=== PATIENT | female | born 1980 | race Caucasian/White ===

== ENCOUNTER 2019-06-27 07:32 | Emergency (ER) | payer BC, OTHER ==
[2019-06-27] MEDS ORDERED: ONDANSETRON 4 MG/2 ML VIAL ONE (07:59)
[2019-06-27] MEDS ORDERED: MORPHINE 2 MG/ML SYR ONE ×2 (07:59→08:24)
[2019-06-27 08:14] LABS: Absolute Lymphocytes (CBC) 0.8 K/uL (0.7-4.9); Basophils % 0.9 % (0-1.3); Hematocrit 41.7 % (36.0-45.0); Lymphocytes % 12.1 % (15.3-44.8); MPV 7.3 fL (7.6-11.3); RBC Red Blood Cell Count 4.58 M/uL (3.86-4.86)
[2019-06-27 08:34] LABS: Bilirubin Total 0.5 mg/dL (0.2-1.0); Potassium 3.5 mmol/L (3.5-5.1); Protein, Total 7.1 g/dL (6.4-8.2)
[2019-06-27] MEDS ORDERED: BUPIVACAINE 0.5% PF 10 ML VIAL ONE (08:52)
--- NOTE | 2019-06-27 09:16 | RAD REPORT ---
EXAM DESCRIPTION: CT - Soft Tissue Neck W/Contr - 06/27/2019 8:53 am CLINICAL HISTORY: Right jaw pain and swelling COMPARISON: None. TECHNIQUE: Computed axial tomography of the neck was obtained. 50 cc Isovue 300 was administered in travenously. Coronal and sagittal reconstruction was performed. All CT scans are performed using dose optimization technique as appropriate and may include automated exposure control or mA/KV adjustment according to patient size. FINDINGS: Lucency surrounds a right mandibular tooth. There is surrounding edema. Edema extends thro ughout the right cheek. A fluid-filled abscess is not visualized within the soft tissues. The pharynx, tongue base, larynx and subglottic trachea appear unremarkable The parotid, submandibular appear unremarkable. Sub centimeter left thyroid nodule likely benign No lymphadenopathy is seen The sinuses and mastoids are clear. IMPRESSION: Lucency with surrounding a right mandibular tooth consistent with abscess Surrounding cellulitis is present.
[2019-06-27] MEDS ORDERED: CLINDAMYCIN 900MG/D5W 900 MG/50 ML IVPB IV ONE (09:43)
[2019-06-27] MEDS ORDERED: METRONIDAZOLE 500mg IVPB 500 MG/100 ML BAG IV ONE (09:43)
--- NOTE | 2019-06-27 09:57 | ER ---
Nurse's Notes [facility] Name: Claudine Herron Age: 39 yrs Sex: Female : 1980 Arrival Date: 06/27/2019 Time: 07:41 Bed 5 Private MD: Diagnosis: Periapical abscess without sinus Presentation: 06/27 07:43 Presenting complaint: Patient states: "I had a tooth abscess around May 18 and a aa5 dentist in [place] gave me clindamycin twice but the swelling started back again on Tuesday". Pt c/o swelling to right jaw/cheek. 07:43 Acuity: BENJA 3 aa5 07:48 Risk Assessment: Do you want to hurt yourself or someone else? Patient reports no tw2 desire to harm self or others. Care prior to arrival: None. 07:48 Transition of care: patient was not received from another setting of care. Onset of aa5 symptoms was June 2019. 07:48 Method Of Arrival: Ambulatory aa5 08:24 Initial Sepsis Screen: Does the patient meet any 2 criteria? No. Patient's initial jl7 sepsis screen is negative. Does the patient have a suspected source of infection? Yes: Skin breakdown/wound. 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 tw2 Historical: - Allergies: 07:43 amoxicillin; aa5 07:43 PENICILLINS; aa5 07:43 Sulfa (Sulfonamide Antibiotics); aa5 07:43 Latex, Natural Rubber; aa5 - Home Meds: 08:24 verapamil Oral [Active]; duloxetine oral oral [Active]; Xanax Oral [Active]; aspirin 81 jl7 mg Oral chew [Active]; - PMHx: 08:24 Neurocardiogenic syncope; jl7 - Immunization history:: Adult Immunizations unknown. - Coronavirus screen:: The patient has NOT traveled to [place], [place], or [place] in the past 14 days. The patient has NOT had contact with known/suspected case of Coronavirus?. - Social history:: Smoking status: Patient reports the use of cigarette tobacco products, vapes . - Ebola Screening: : No symptoms or risks identified at this time. Screenin:48 Abuse screen: Denies threats or abuse. Nutritional screening: No deficits noted. tw2 Tuberculosis screening: No symptoms or risk factors identified. Fall Risk None identified. Assessment: 08:00 General: Appears in no apparent distress. uncomfortable, Behavior is calm, cooperative, jl7 appropriate for age. Pain: Complains of pain in right jaw Pain does not radiate. Pain currently is 9 out of 10 on a pain scale. Quality of pain is described as throbbing, Pain began 2-3 days ago. Is continuous. Neuro: Level of Consciousness is awake, alert, obeys commands, Oriented to person, place, time, situation. Cardiovascular: Patient's skin is warm and dry. Respiratory: Airway is patent Respiratory effort is even, unlabored, Respiratory pattern is regular, symmetrical. EENT: Oral mucosa is moist. Dental caries noted in lower right first molar (#30) Throat is clear. Derm: Skin is pink, warm \\T\\ dry. Musculoskeletal: Swelling present in right jaw. 08:47 Reassessment: Patient appears in no apparent distress at this time. Pt reports no jl7 change in pain, ERP notified, see MAR for orders. 09:30 Reassessment: Patient appears in no apparent distress at this time. Patient is alert, jl7 oriented x 3, equal unlabored respirations, skin warm/dry/pink. Patient states symptoms have improved. 10:00 Reassessment: Pt will be discharged once medications are done infusing. jl7 Vital Signs: 07:45 BP 122 / 88; Pulse 85; Resp 18 S; Temp 98.0(TE); Pulse Ox 100% on R/A; Weight 45.36 kg aa5 (R); Height 5 ft. 5 in. (165.10 cm) (R); Pain 8/10; 08:39 BP 115 / 81; Pulse 64; Resp 17; Pulse Ox 100% on R/A; tw2 09:43 BP 106 / 78; Pulse 48; Resp 17; Pulse Ox 100% on R/A; tw2 10:39 BP 108 / 75; Pulse 59; Resp 16; Pulse Ox 100% ; Pain 0/10; jl7 07:45 Body Mass Index 16.64 (45.36 kg, 165.10 cm) aa5 ED Course: 07:41 Patient arrived in ED. mr 07:43 Hill Pacheco PA is PHCP. jmm 07:43 Shay Renae MD is Attending Physician. jmm 07:43 Bed in low position. Call light in reach. tw2 07:47 Amelia Skinner RN is Primary Nurse. tw2 07:48 Arm band placed on. tw2 07:50 Triage completed. aa5 08:00 Initial lab(s) drawn, by me, sent to lab. Inserted saline lock: 20 gauge in right jl7 forearm, using aseptic technique. Blood collected. 08:25 Primary Nurse role handed off by Amelia Skinner RN jl7 08:25 Wilfred Ayon RN is Primary Nurse. jl7 09:55 Mack Mar DDS is Referral Physician. jmm 09:55 Jackie Richardson DDS is Referral Physician. [facility] 10:39 No provider procedures requiring assistance completed. IV discontinued, intact, jl7 bleeding controlled, No redness/swelling at site. Pressure dressing applied. Administered Medications: 08:03 Drug: Zofran 4 mg Route: IVP; Site: right forearm; jl7 08:44 Follow up: Response: No adverse reaction jl7 08:05 Drug: morphine 2 mg Route: IVP; Site: right forearm; jl7 08:25 Follow up: Response: No adverse reaction; Pain is unchanged, physician notified jl7 08:31 Drug: morphine 2 mg Route: IVP; Site: right forearm; jl7 08:47 Follow up: Response: No adverse reaction; Pain is unchanged, physician notified jl7 09:25 Drug: Marcaine (0.5 %) 10 ml {Note: administered by PA. Hill} Volume: 10 ml; Route: jl7 Infiltration; 09:30 Follow up: Response: No adverse reaction; Pain is decreased jl7 09:44 Drug: Clindamycin 900 mg Route: IVPB; Infused Over: 30 mins; Site: right forearm; jl7 10:14 Follow up: Response: No adverse reaction; IV Status: Completed infusion jl7 10:00 Drug: Flagyl 500 mg Volume: 100 ml; Route: IVPB; Rate: 200 ml/hr; Infused Over: 30 jl7 mins; Site: right forearm; 10:30 Follow up: Response: No adverse reaction; IV Status: Completed infusion jl7 Outcome: :55 Discharge ordered by . jmm 10:39 Discharged to home ambulatory. jl7 10:39 Condition: stable 10:39 Discharge instructions given to patient, family, Instructed on discharge instructions, follow up and referral plans. medication usage, Demonstrated understanding of instructions, follow-up care, medications, Prescriptions given X 3. 10:40 Patient left the ED. jl7 Signatures: Hill Pacheco PA PA jmm Rivera, Mary mr Ruiz, Paulina, RN RN aa5 Amelia Skinner RN RN tw2 Wilfred Ayon RN RN jl7 Corrections: (The following items were deleted from the chart) 10:39 09:48 Flagyl 500 mg 100 ml IVPB at 200 ml/hr in right forearm over 30 mins 100 ml jl7 jl7
--- NOTE | 2019-06-27 09:57 | EDPHYS ---
Physician Documentation [facility] Name: Claudine Herron Age: 39 yrs Sex: Female : 1980 Arrival Date: 06/27/2019 Time: 07:41 Bed 5 Private MD: ED Physician Shay Renae HPI: 06/27 08:06 This 39 yrs old Female presents to ER via Ambulatory with complaints of jmm Facial Swelling. 08:06 The patient presents with pain, redness. Onset: The symptoms/episode began/occurred jmm gradually, 2 day(s) ago. Duration: The symptoms are continuous, and are steadily getting worse. Modifying factors: The symptoms are alleviated by nothing, the symptoms are aggravated by nothing. This is a 39 year old female that presents to the ED with complaints of right jaw swelling and dental pain. Patient states having a similar episode about a month ago. Denies fever. . 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 tw2 Historical: - Allergies: 07:43 amoxicillin; aa5 07:43 PENICILLINS; aa5 07:43 Sulfa (Sulfonamide Antibiotics); aa5 07:43 Latex, Natural Rubber; aa5 - Home Meds: 08:24 verapamil Oral [Active]; duloxetine oral oral [Active]; Xanax Oral [Active]; aspirin 81 jl7 mg Oral chew [Active]; - PMHx: 08:24 Neurocardiogenic syncope; jl7 - Immunization history:: Adult Immunizations unknown. - Coronavirus screen:: The patient has NOT traveled to [place], [place], or [place] in the past 14 days. The patient has NOT had contact with known/suspected case of Coronavirus?. - Social history:: Smoking status: Patient reports the use of cigarette tobacco products, vapes . - Ebola Screening: : No symptoms or risks identified at this time. ROS: 08:06 Constitutional: Negative for fever, chills, and weight loss, Cardiovascular: Negative jmm for chest pain, palpitations, and edema, Respiratory: Negative for shortness of breath, cough, wheezing, and pleuritic chest pain. 08:06 : Negative for injury, bleeding, discharge, and swelling, Skin: Negative for injury, rash, and discoloration, Neuro: Negative for headache, weakness, numbness, tingling, and seizure. 08:06 ENT: Positive for dental pain. Exam: 08:06 Constitutional: This is a well developed, well nourished patient who is awake, alert, jmm and in no acute distress. 08:06 Eyes: EOMI, no conjunctival erythema appreciated 08:06 Neck: Trachea midline, Supple Chest/axilla: Normal chest wall appearance and motion. Cardiovascular: Regular rate and rhythm. No edema appreciated Respiratory: Normal respirations, no respiratory distress appreciated Abdomen/GI: Non distended, soft Back: Normal ROM Skin: General appearance color normal MS/ Extremity: Moves all extremities, no obvious deformities appreciated, no edema noted to the lower extremities Neuro: Awake and alert, normal gait Psych: Behavior is normal, Mood is normal, Patient is cooperative and pleasant 08:06 Head/face: right sided jaw pain. 08:06 ENT: Dental exam: gum swelling, that is moderate, specifically in the lower right first molar (#30). Vital Signs: 07:45 BP 122 / 88; Pulse 85; Resp 18 S; Temp 98.0(TE); Pulse Ox 100% on R/A; Weight 45.36 kg aa5 (R); Height 5 ft. 5 in. (165.10 cm) (R); Pain 8/10; 08:39 BP 115 / 81; Pulse 64; Resp 17; Pulse Ox 100% on R/A; tw2 09:43 BP 106 / 78; Pulse 48; Resp 17; Pulse Ox 100% on R/A; tw2 10:39 BP 108 / 75; Pulse 59; Resp 16; Pulse Ox 100% ; Pain 0/10; jl7 07:45 Body Mass Index 16.64 (45.36 kg, 165.10 cm) aa5 Procedures: 09:33 Nerve block: (dental) of left inferior alveolar nerve, Medication: Marcaine 0.5%aruna Amount: 2 mls were injected, Effect: the patient has resolution of the pain, Performed by Hill LEWIS Patient tolerated well. MDM: 07:44 Patient medically screened. [facility] 09:33 Data reviewed: vital signs, nurses notes. Counseling: I had a detailed discussion with aruna the patient and/or guardian regarding: the historical points, exam findings, and any diagnostic results supporting the discharge/admit diagnosis, lab results, radiology results. 09:54 Data reviewed: lab test result(s), radiologic studies, CT scan. ED course: Patient [facility] advised to follow up with oral surgery for reevaluation. Patient otherwise given strict return precautions. Patient understood and agrees with the plan of care. . 06/27 07:51 Order name: CBC with Diff [facility] 06/27 07:51 Order name: CMP [facility] 06/27 07:51 Order name: CT Soft Tissue Neck W/contr [facility] 06/27 08:17 Order name: CBC with Automated Diff; Complete Time: 08:31 EDMS 06/27 08:34 Order name: Comprehensive Metabolic Panel; Complete Time: 08:40 EDMS 06/27 09:22 Order name: CT; Complete Time: 09:26 EDMI 06/27 07:51 Order name: Saline Lock; Complete Time: 08:07 [facility] Administered Medications: 08:03 Drug: Zofran 4 mg Route: IVP; Site: right forearm; jl7 08:44 Follow up: Response: No adverse reaction jl7 08:05 Drug: morphine 2 mg Route: IVP; Site: right forearm; jl7 08:25 Follow up: Response: No adverse reaction; Pain is unchanged, physician notified jl7 08:31 Drug: morphine 2 mg Route: IVP; Site: right forearm; jl7 08:47 Follow up: Response: No adverse reaction; Pain is unchanged, physician notified jl7 09:25 Drug: Marcaine (0.5 %) 10 ml {Note: administered by PA. Hill} Volume: 10 ml; Route: jl7 Infiltration; 09:30 Follow up: Response: No adverse reaction; Pain is decreased jl7 09:44 Drug: Clindamycin 900 mg Route: IVPB; Infused Over: 30 mins; Site: right forearm; jl7 10:14 Follow up: Response: No adverse reaction; IV Status: Completed infusion jl7 10:00 Drug: Flagyl 500 mg Volume: 100 ml; Route: IVPB; Rate: 200 ml/hr; Infused Over: 30 jl7 mins; Site: right forearm; 10:30 Follow up: Response: No adverse reaction; IV Status: Completed infusion jl7 Disposition: 12:13 Co-signature as Attending Physician, Shay Renae MD. rn Disposition: 06/27/19 09:55 Discharged to Home. Impression: Periapical abscess without sinus. - Condition is Stable. - Discharge Instructions: Dental Abscess. - Prescriptions for Clindamycin HCl 300 mg Oral Capsule - take 1 capsule by ORAL route every 6 hours for 10 days; 40 capsule. Flagyl 500 mg Oral Tablet - take 1 tablet by ORAL route every 8 hours for 10 days; 30 tablet. Tylenol- Codeine #3 300-30 mg Oral Tablet - take 1 tablet by ORAL route every 6 hours As needed; 20 tablet. - Medication Reconciliation Form, Thank You Letter, Antibiotic Education, Prescription Opioid Use form. - Follow up: Mack Mar DDS; When: 2 - 3 days; Reason: Recheck today's complaints, Continuance of care, Re-evaluation by your physician. Follow up: Jackie Richardson DDS; When: 2 - 3 days; Reason: Recheck today's complaints, Continuance of care, Re-evaluation by your physician. Signatures: Dispatcher [employer] EDMS Hill Pacheco PA PA jmm Nieto, Roman, MD MD rn Paulina Ruiz RN RN aa5 Wilfred Ayon RN RN jl7 Corrections: (The following items were deleted from the chart) 10:40 09:55 06/27/2019 09:55 Discharged to Home. Impression: Periapical abscess without jl7 sinus. Condition is Stable. Forms are Medication Reconciliation Form, Thank You Letter, Antibiotic Education, Prescription Opioid Use. Follow up: Mack Mar; When: 2 - 3 days; Reason: Recheck today's complaints, Continuance of care, Re-evaluation by your physician. Follow up: Jackie Richardson; When: 2 - 3 days; Reason: Recheck today's complaints, Continuance of care, Re-evaluation by your physician. aruna
[2019-06-27 12:24] VITALS: TEMP 98; O2SAT 100
[2019-06-27 12:28] VITALS: BP 108/75
== END 2019-06-27 10:40 | disposition home or self-care (01) ==
LOC: ER 07:32
PROC: 3E0T3BZ Introduction of Anesthetic Agent into Peripheral Nerves and Plexi, Percutaneous Approach (ICD-10-PCS; principal; 2019-06-27)
DX: K04.7 Periapical abscess without sinus (principal); Z88.0 Allergy status to penicillin; Z88.1 Allergy status to other antibiotic agents; Z88.2 Allergy status to sulfonamides; Z91.040 Latex allergy status
CPT/HCPCS: 96365; 85025; 36415; 80053; 70491; 96375; 99284; 64400; Q9967; J2270 ×2; J2405

== ENCOUNTER 2022-05-02 21:28 | Emergency (ER) | payer BC, OTHER ==
--- OUTSIDE RECORDS SUMMARY | 2022-05-02 21:32 | XMS REPORT | Continuity of Care Document ---
:1980 Author Organization [facility] t Address [address] [place] [address] Care Team Providers Name Role Phone Pcp, Patient Does Not Have A Primary Care Physician [phone] Dina Marino Attending Clinician Unavailable Mirian Govea Attending Clinician Unavailable Bishnu Hughes Attending Clinician Unavailable Bishnu Hughes MD Attending Clinician HELLEN LOPEZ Attending Clinician Unavailable Ambrose Reyes Attending Clinician AMBROSE MACKENZIE Attending Clinician Unavailable BISHNU HUGHES Attending Clinician Unavailable Payers Payer Name Policy Type Policy Number Effective Date Expiration Date S kary FOR C1 [id number] Common Spiri t LIFE - [facility] FOR C1 [id number] Common Spiri t LIFE [facility] FOR C1 [id number] Common Spiri t LIFE [facility] Problems Condition Condition Condition Status Onset Resolution Last Treating Co mments Source Name Details Category Date Date Treatment Clinician Date Low back Low back Disease Active 2017-05 Unive rs pain of pain of 2-10 ity of over 3 over 3 00:00: [place] months months 00 Medical duration duration Branch Neck pain Neck pain Disease Active 2017-05 Uni vers of over 3 of over 3 2-10 ity of months months 00:00: [place] duration duration 00 Medica l Rafa [id number] Neurologic Problem Active Co mmon cardiac [facility] syncope [facility] [id number] History of Problem Active Co mmon ulcerative [facility] colitis [facility] [id number] Lesion of Problem Active Com mon lip [facility] [id number] Dorsalgia, Problem Active Co mmon unspecifie Spirit d [facility] [id number] Constipati Problem Active Com mon on, Spirit unspecifie - [facility] d constipati [facility] on type [facility] Anxiety Anxiety Problem Active Common [facility] Allergic Allergic Problem Active Commo n rhinitis rhinitis [facility] [id number] Encounter Problem Active Com mon for Spirit medication [facility] refill [facility] [id number] Other Problem Active Common chronic [facility] pain [facility] Depression Depression Problem Active C ommon [facility] [id number] Night Problem Active Common sweats [facility] Allergies, Adverse Reactions, Alerts Allergy Allergy Status Severity Reaction(s) Onset Inactive Treating Comm ents Source Name Type Date Date Clinician Latex Propensi Active Rash 2019-05 Univers ty to 2-05 ity of adverse 00:00: [place] reaction 00 Medical s Branch LATEX DRUG Active Rash 2019-05 Univers INGREDI 2-05 ity of 00:00: [place] 00 Medical Branch Latex Propensi Active Unknown - 2017-05 Unive rs ty to See comments 2-10 ity of adverse 00:00: [place] reaction 00 Medical s Branch Penicill Propensi Active Unknown - 2017-05 Uni vers in ty to See comments 2-10 ity of adverse 00:00: [place] reaction 00 Medical s Branch LATEX DRUG Active Unknown-Cmnt 2017-05 Univ ers INGREDI 2-10 ity of 00:00: [place] 00 Medical Branch PENICILL DRUG Active Unknown-Cmnt 2017-05 Un norma IN INGREDI 2-10 ity of 00:00: [place] 00 Medical Branch SULFA Drug Active Unknown-Cmnt 2017-05 Univ ers (SULFONA Class 2-10 ity of MIDE 00:00: [place] ANTIBIOT 00 Medical ICS) Branch Penicill Propensi Active Hives Univer s ins ty to 8-28 ity of adverse 00:00: [place] reaction 00 Medical s Branch Sulfa Propensi Active Unknown - Unive rs (Sulfona ty to See comments 01-17 it y of mide adverse 00:00: [place] Antibiot reaction 00 Medica l ics) s Branch PENICILL Drug Active Hives Univers INS Class 8-28 ity of 00:00: [place] 00 Medical Branch SULFA Drug Active Unknown-Cmnt Univ ers (SULFONA Class 8-28 ity of MIDE 00:00: [place] ANTIBIOT 00 Medical ICS) Branch 0 Drug Active bumps Common allergy [facility] - [facility] Social History Social Habit Start Date Stop Date Quantity Comments Source History of Common Spirit - Tobacco Use [facility] Sex Assigned At Common Sp jeimy - [facility] Exposure to Not sure [facility] SARS[facility]CoV-2 [facility] (event[facility] Branch Alcohol intake 2018-12-29 2018-12-29 Current University of 00:00:00 00:00:00 non-drinker of [facility] alcohol [place] (finding) Tobacco use and 2018-05-01 2018-05-01 Never used Universit y of exposure 00:00:00 00:00:00 [facility] Smoking Status Start Date Stop Date Source Unknown if ever smoked Universit y of [facility] Never Smoker [facility] Medications Ordered Filled Start Stop Current Ordering Indication Dosage Frequency Signature Comments Components Source Medication Medication Date Date Medication? Clinician (SIG) Name Name BABY Yes Take by Univers ASPIRIN 3-08 mouth. ity of ORAL 20:29: [address] BABY Yes Take by [facility] ASPIRIN 3-08 mouth. ity of ORAL 20:29: [address] BABY Yes Take by [facility] ASPIRIN 3-08 mouth. ity of ORAL 14:29: [address] ALPRAZolam Yes [id number] 1mg Take 1 U nivers 1 mg tablet 3-01 tablet by ity of 00:00: mouth 2 [place] (two) Medical times [place] daily. verapamil Yes [id number] 120mg Take 1 Univers SR 120 mg 3-01 tablet by ity o f ER tablet 00:00: mouth 2 [place] (two) Medical times [place] daily. ALPRAZolam Yes [id number] 1mg Take 1 U nivers 1 mg tablet 3-01 tablet by ity of 00:00: mouth 2 [place] (two) Medical times [place] daily. verapamil Yes [id number] 120mg Take 1 Univers SR 120 mg 3-01 tablet by ity o f ER tablet 00:00: mouth 2 [place] (two) Medical [facility] daily. ALPRAZolam Yes [id number] 1mg Take 1 U nivers 1 mg tablet 3-01 tablet by ity of 00:00: mouth 2 [place] (two) Medical times [place] daily. verapamil Yes [id number] 120mg Take 1 Univers SR 120 mg 3-01 tablet by ity o f ER tablet 00:00: mouth 2 [place] (two) Medical times [place] daily. DULoxetine Yes [id number] 60mg Take 1 U nivers 60 mg 1-15 capsule by ity of capsule 00:00: mouth [place] 00 daily. Medical Branch DULoxetine Yes [id number] 60mg Take 1 U nivers 60 mg 1-15 capsule by ity of capsule 00:00: mouth [place] 00 daily. Medical Branch DULoxetine Yes [id number] 60mg Take 1 U nivers 60 mg 1-15 capsule by ity of capsule 00:00: mouth [place] 00 daily. Medical Branch ciprofloxac 2019-05- No 500mg 500 mg, U nivers in HCl 06-28 Oral, ity of (CIPRO) 01:30: 00:48 ONCE, 1 [place] tablet 500 00 :00 dose, Sat Medi cody mg 04/26/20 at Branch 1930, CORINA
Re ason for Anti-Infec tive: Documented Infection< br>Documen jose angel Infection Site: Urine
D uration of Therapy: Other (see Comments) dexamethaso 2019-05- No 10mg 10 mg, Uni vers ne 06-28 Intramuscu ity of (DECADRON) 00:45: 00:45 lar, ONCE, [place] injection 00 :00 1 dose, Medical 10 mg Sat [place] 04/26/20 at 1845, CORINA famotidine 2019-05- No 40mg 40 mg, Univ ers (PEPCID) 06-28 Oral, ity of tablet 40 00:45: 23:51 ONCE, 1 [place] mg 00 :00 dose, Sat Medical 12/5/20 at Branch 1845, CORINA diphenhydrA 2019-05 2020- No 25mg 25 mg, Uni vers MINE 06-28 12-05 Oral, ity of (BENADRYL) 00:45: 23:51 ONCE, 1 [place] as tablet 25 00 :00 dose, Sat Medic al mg 04/26/20 at Branch 1845, CORINA predniSONE 2019-05 2020- No [id number] 40mg Take 2 Univers 20 mg 06-28-12 tablets by ity of tablet 00:00: 05:59 mouth [place] 00 :00 daily for Medical 5 days. [place] permethrin 2019-05 Yes [id number] Cream 5%: Univers 5 % cream 2-05 Apply to ity of 00:00: entire [place] 00 body; Medical leave on Branch for 8 to 14 hours before washing off with water permethrin 2019-05 Yes [id number] Cream 5%: Univers 5 % cream 2-05 Apply to ity of 00:00: entire [place] 00 body; Medical leave on Branch for 8 to 14 hours before washing off with water permethrin 2019-05 Yes [id number] Cream 5%: Univers 5 % cream 2-05 Apply to ity of 00:00: entire [place] 00 body; Medical leave on Branch for 8 to 14 hours before washing off with water permethrin 2019-05 Yes [id number] Cream 5%: Univers 5 % cream 2-05 Apply to ity of 00:00: entire [place] 00 body; Medical leave on Branch for 8 to 14 hours before washing off with water famotidine 2019-05 2020- No [id number] 20mg Take 1 Univers (PEPCID) 20 06-27-16 tablet by it y of mg tablet 00:00: 05:59 mouth 2 [place] 00 :[place] (two) Medical times [place] daily for 10 days. ciprofloxac 2019-05 2020- No [id number] 500mg Take 1 Univers in HCl 500 06-27 12-11 tablet by ity of mg tablet 00:00: 05:59 mouth 2 [place] 00 :[place] (two) Medical times [place] daily for 5 days. NAPROXEN/ES Yes Take by Uni vers OMEPRAZOLE 8-28 mouth. ity of MAG (VIMOVO 18:06: [place] ORAL) 27 Medical Branch NAPROXEN/ES Yes Take by Uni vers OMEPRAZOLE 8-28 mouth. ity of MAG (VIMOVO 18:06: [place] ORAL) Medical Branch NAPROXEN/ES Yes Take by Uni vers OMEPRAZOLE 8-28 mouth. ity of MAG (VIMOVO 18:06: [place] ORAL) Medical Branch CYCLOBENZAP Yes Take by Uni vers RINE HCL 8-28 mouth. ity of (FLEXERIL 18:04: [place] ORAL) Medical Branch GABAPENTIN, Yes Univer s BULK, MISC 8-28 ity of 18:04: [place] 02 Medical Branch CYCLOBENZAP Yes Take by Uni vers RINE HCL 8-28 mouth. ity of (FLEXERIL 18:04: [place] ORAL) Medical Branch GABAPENTIN, Yes Univer s BULK, MISC 8-28 ity of 18:04: [place] Medical Branch CYCLOBENZAP Yes Take by Uni vers RINE HCL 8-28 mouth. ity of (FLEXERIL 18:04: [place] ORAL) Medical Branch GABAPENTIN, Yes Univer s BULK, MISC 8-28 ity of 18:04: [place] Medical Branch NAPROXEN/ES Yes Take by Uni vers OMEPRAZOLE 8-28 mouth. ity of MAG (VIMOVO 13:06: [place] ORAL) Medical Branch CYCLOBENZAP Yes Take by Uni vers RINE HCL 8-28 mouth. ity of (FLEXERIL 13:04: [place] ORAL) Medical Branch GABAPENTIN, Yes Univer s BULK, MISC 8-28 ity of 13:04: [place] 02 Medical Branch HYDROcodone Yes 1{tbl} Take 1 Tab Univers -acetaminop 8-28 by mouth ity of hen (NORCO 00:00: every 4 [place] 5) 5-325 mg 00 (four) Medica l tablet hours as Branch needed for Pain. naproxen Yes 500mg Take 1 Tab Un norma (NAPROSYN) 8-28 by mouth 2 ity of 500 mg 00:00: (two) [place] tablet 00 times Medical daily with Branch meals. cyclobenzap Yes 10mg Take 1 Tab Univers rine 8-28 by mouth 3 ity of (FLEXERIL) 00:00: (three) [place] 10 mg 00 times Medical tablet daily. Branch HYDROcodone 2012-0 Yes 1{tbl} Take 1 Tab Univers -acetaminop 8-28 by mouth ity of hen (NORCO 00:00: every 4 [place] 5) 5-325 mg 00 (four) Medica l tablet hours as Branch needed for Pain. naproxen 2011-0 Yes 500mg Take 1 Tab Un norma (NAPROSYN) 8-28 by mouth 2 ity of 500 mg 00:00: (two) [place] tablet 00 times Medical daily with Branch meals. cyclobenzap 2012-0 Yes 10mg Take 1 Tab Univers rine 8-28 by mouth 3 ity of (FLEXERIL) 00:00: (three[place] 10 mg 00 times Medical tablet daily. Branch HYDROcodone 2011- Yes 1{tbl} Take 1 Tab Univers -acetaminop 8-28 by mouth ity of hen (NORCO 00:00: every 4 [place] 5) 5-325 mg 00 (four) Medica l tablet hours as Branch needed for Pain. naproxen 2011-0 Yes 500mg Take 1 Tab Un norma (NAPROSYN) 8-28 by mouth 2 ity of 500 mg 00:00: (two) [place] tablet 00 times Medical daily with Branch meals. cyclobenzap 2012-0 Yes 10mg Take 1 Tab Univers rine 8-28 by mouth 3 ity of (FLEXERIL) 00:00: (three) [place] 10 mg 00 times Medical tablet daily. Branch HYDROcodone 2011-0 Yes 1{tbl} Take 1 Tab Univers -acetaminop 8-28 by mouth ity of hen (NORCO 00:00: every 4 [place] 5) 5-325 mg 00 (four) Medica l tablet hours as Branch needed for Pain. naproxen 2012-0 Yes 500mg Take 1 Tab Un norma (NAPROSYN) 8-28 by mouth 2 ity of 500 mg 00:00: (two) [place] tablet 00 times Medical daily with Branch meals. cyclobenzap 2012-0 Yes 10mg Take 1 Tab Univers rine 8-28 by mouth 3 ity of (FLEXERIL) 00:00: (three) [place] 10 mg 00 times Medical tablet daily. Branch Verapamil Verapamil No 1{table BID Verapamil HCl ER 120 HCl ER 120 t} HCl ER 120 MG MG MG Aspirin 81 Aspirin 81 No 1{table QD Aspirin 81 81 MG 81 MG t} 81 MG DULoxetine DULoxetine No 1{capsu QD DULoxetine HCl 60 MG HCl 60 MG le} HCl 60 MG Verapamil Verapamil No 1{table BID Verapamil HCl ER 120 HCl ER 120 t} HCl ER 120 MG MG MG Aspirin 81 Aspirin 81 No 1{table QD Aspirin 81 81 MG 81 MG t} 81 MG DULoxetine DULoxetine No 1{capsu QD DULoxetine HCl 60 MG HCl 60 MG le} HCl 60 MG Verapamil Verapamil No 1{table BID Verapamil HCl ER 120 HCl ER 120 t} HCl ER 120 MG MG MG Aspirin 81 Aspirin 81 No 1{table QD Aspirin 81 81 MG 81 MG t} 81 MG DULoxetine DULoxetine No 1{capsu QD DULoxetine HCl 60 MG HCl 60 MG le} HCl 60 MG Verapamil Verapamil No 1{table BID Verapamil HCl ER 120 HCl ER 120 t} HCl ER 120 MG MG MG Aspirin 81 Aspirin 81 No 1{table QD Aspirin 81 81 MG 81 MG t} 81 MG DULoxetine DULoxetine No 1{capsu QD DULoxetine HCl 60 MG HCl 60 MG le} HCl 60 MG DULoxetine DULoxetine No 1{capsu QD DULoxetine HCl 60 MG HCl 60 MG le} HCl 60 MG Aspirin 81 Aspirin 81 No 1{table QD Aspirin 81 81 MG 81 MG t} 81 MG Verapamil Verapamil No 1{table BID Verapamil HCl ER 120 HCl ER 120 t} HCl ER 120 MG MG MG DULoxetine DULoxetine No 1{capsu QD DULoxetine HCl 60 MG HCl 60 MG le} HCl 60 MG Aspirin 81 Aspirin 81 No 1{table QD Aspirin 81 81 MG 81 MG t} 81 MG Verapamil Verapamil No 1{table BID Verapamil HCl ER 120 HCl ER 120 t} HCl ER 120 MG MG MG Verapamil Verapamil No 1{table BID Verapamil HCl ER 120 HCl ER 120 t} HCl ER 120 MG MG MG Aspirin 81 Aspirin 81 No 1{table QD Aspirin 81 81 MG 81 MG t} 81 MG DULoxetine DULoxetine No 1{capsu QD DULoxetine HCl 60 MG HCl 60 MG le} HCl 60 MG Verapamil Verapamil No Verapamil HCl ER 120 HCl ER 120 HCl ER 120 MG MG MG Immunizations Ordered Filled Immunization Date Status Comments Sour e Immunization Name Name TD 2014-09-20 Completed University of 00:00:00 [facility] 2014-09-20 Completed University of 00:00:00 [facility] TDAP 2014-09-20 Completed University 00:00:00 [facility] Vital Signs Vital Name Observation Time Observation Value Comments Source weight 2021-12-09 08:20:00 118.4 [lb_av] [facility] temperature 2021-12-09 08:20:00 97.3 [degF] [facility] bmi 2021-12-09 08:20:00 20.32 kg/m2 [facility] oximetry 2021-12-09 08:20:00 100 % [facility] respiratory rate 2021-12-09 08:20:00 16 /min Comm on [facility] blood pressure 2021-12-09 08:20:00 107 mm[Hg] [facility] systolic [facility] blood pressure 2021-12-09 08:20:00 67 mm[Hg] [facility] - diastolic [facility] height 2021-12-09 08:20:00 64 [in_i] [facility] height 2021-09-08 11:20:00 64 [in_i] [facility] weight 2021-09-08 11:20:00 118 [lb_av] [facility] temperature 2021-09-08 11:20:00 97.2 [degF] [facility] bmi 2021-09-08 11:20:00 20.25 kg/m2 [facility] oximetry 2021-09-08 11:20:00 99 % [facility] respiratory rate 2021-09-08 11:20:00 17 /min Comm on [facility] blood pressure 2021-09-08 11:20:00 112 mm[Hg] Common [facility] - systolic [facility] blood pressure 2021-09-08 11:20:00 80 mm[Hg] Common [facility] - diastolic [facility] height 2021-03-31 09:00:00 64 [in_i] [facility] weight 2021-03-31 09:00:00 111 [lb_av] [facility] temperature 2021-03-31 09:00:00 98.8 [degF] [facility] bmi 2021-03-31 09:00:00 19.05 kg/m2 [facility] oximetry 2021-03-31 09:00:00 100 % [facility] respiratory rate 2021-03-31 09:00:00 18 /min Comm on [facility] blood pressure 2021-03-31 09:00:00 116 mm[Hg] [facility] - systolic [facility] blood pressure 2021-03-31 09:00:00 64 mm[Hg] Common [facility] - diastolic [facility] Body weight 2020-04-26 23:36:00 45.36 kg [facility] Systolic blood 2020-04-26 23:34:00 110 mm[Hg] Univer sity of pressure [facility] Diastolic blood 2020-04-26 23:34:00 78 mm[Hg] [facility] Heart rate 2020-04-26 23:34:00 89 /min [facility] Body temperature 2020-04-26 23:34:00 37 Evelia [facility] Respiratory rate 2020-04-26 23:34:00 18 /min [facility] Oxygen saturation in 2020-04-26 23:34:00 100 /min [facility] Arterial blood by [facility] Pulse oximetry Branch Procedures Procedure Date / Time Performed Performing Clinician Sour e POCT TEST 2020-04-26 23:50:00 Ambrose Mackenzie [facility] URINALYSIS 2020-04-26 23:49:00 Ambrose Mackenzie [place] [facility] NOTICE OF PRIVACY 2020-04-26 23:24:44 [facility], [facility] Name Medical Branch CONSENT/REFUSAL FOR 2020-04-26 23:24:28 Doctor Unassigned, No [facility] DIAGNOSIS AND Name Medical Branch TREATMENT Encounters Start End Encounter Admission Attending Care Care Encounter Source Date/Time Date/Time Type Type Clinicians Facility Department ID 2022-02-15 Outpatient [place], STLMLC STLMLC [id number] Common 08:14:00 Dina [facility] 2021-12-07 Outpatient [place], STLMLC STLMLC [id number] Common 09:30:00 Dina [facility] 2021-06-17 Outpatient [place], STLMLC STLMLC [id number] Common 14:16:31 Dina 03847 [facility] 2021-06-17 Outpatient [place], STLMLC STLMLC [id number] Common 14:10:32 Dina [id number] [facility] 2021-06-17 Outpatient STLMLC STLMLC [id number] Common 14:10:07 [id number] [facility] 2021-06-17 Outpatient Govea, STLMLC STLMLC [id number] Common 14:07:59 Mirian 84127 [facility] 2021-06-17 Outpatient STLMLC STLMLC [id number] Common 14:03:32 [id number] [facility] 2021-06-17 Outpatient STLMLC STLMLC [id number] Common 14:02:47 [id number] [facility] 2021-06-17 Outpatient STLMLC STLMLC [id number] Common 14:02:10 [id number] [facility] 2021-06-17 Outpatient Veselka, STLMLC STLMLC [id number] Common 13:50:52 Bishnu 66185 [facility] 2021-12-09 2021-12-09 OFFICE STLMLC STLMLC [id number] Co mmon 00:00:00 00:00:00 VISIT [facility] PT - [facility]I [address] 2021-09-08 2021-09-08 OFFICE STLMLC STLMLC [id number] Co mmon 00:00:00 00:00:00 VISIT [facility] PT - [facility] [address] 2021-08-04 2021-08-04 (TEL) STLMLC STLMLC [id number] Co mmon 00:00:00 00:00:00 [facility] 2021-07-03 2021-07-03 [facility] [id number] Univers 00:00:00 00:00:00 [facility] [id number] it y of [facility] [id number] Jeffry as PROFESSIO [phone] [address] ONE 2021-07-03 2021-07-03 (TEL) STLMLC STLMLC [id number] Co mmon 00:00:00 00:00:00 [facility] 2021-04-15 2021-04-15 (TEL) STLMLC STLMLC [id number] Co mmon 00:00:00 00:00:00 [facility] 2021-04-09 2021-04-09 (TEL) STLMLC STLMLC [id number] Co mmon 00:00:00 00:00:00 [facility] 2021-03-31 2021-03-31 OFFICE STLMLC STLMLC [id number] Co mmon 00:00:00 00:00:00 VISIT NEW Spir it PT LEVEL 4 [facility] 2021-01-21 2021-01-21 [facility] [id number] Univers 00:00:00 00:00:00 [facility] [id number] it y of [place] [id number] Jeffry as Professio [phone] [address] One 2021-01-16 2021-01-16 Outpatient R JESSICA [facility] [id number] Univers 14:00:00 14:00:00 HELLEN mitchell [facility] 2020-04-26 2020-04-26 Emergency [facility] [id number] Univers 17:37:00 19:10:00 Ambrose Guzmán [id number] i ty of [place] [id number] [facility] [id number] [facility] 084 Branch 2020-04-26 2020-04-26 Emergency X AVRIL, [email or web address] ERT [id number] Univers 17:24:00 17:24:00 [facility] 2019-12-20 2019-12-20 Outpatient R TRACEY, [facility] [id number] Univers 08:00:00 08:00:00 BISHNU [facility] Results Test Description Test Time Test Comments Results Result Comments Source URINALYSIS 2020-04-27 00:17:00 Test Item Value Reference Range Interpretation Comme nts APPEARANCE (test code = Clear Clear 2472878702) COLOR (test code = 6144635070) Yellow Yellow PH (test code = 4565041859) 4.8-8.0 SP GRAVITY (test code = 1.003-1.030 6310891264) GLU U QUAL (test code = Normal Normal 2436815063) BLOOD (test code = 0627820089) Negative Negative KETONES (test code = 1498029242) Negative Negative PROTEIN (test code = 2887-8) Negative Negative UROBILIN (test code = 9502785098) Normal Normal BILIRUBIN (test code = Negative Negative 2077848021) NITRITE (test code = 5122431246) Negative Negative LEUK JOHANA (test code = Negative Negative 8889017182) RBC/HPF (test code = 2484509792) See_Comment [Automated message] The system which ge nerated this result transmit jose angel reference range: 0 - 3 HP F. The reference range was not used to interpret th is result as normal/abnormal . WBC/HPF (test code = 0133772779) <1 See_Comment [Automated message] The system which ge nerated this result transmit jose angel reference range: 0 - 5 HP F. The reference range was not used to interpret th is result as normal/abnormal . BACTERIA (test code = 8765682446) Few Negative A SQ EPITH (test code = 1239672807) <1 HPF Lab Interpretation (test code = Abnormal 53842-6) [id number] 23:50:00 Test Item Value Reference Range Interpretation Comments POCT PREG (test code = 1605) negative On board controls acceptable with present C Line (test code = 3574) POCT PREG LOT # (test code = 3575) [id number] POCT PREG TEST DATE (test code = 3576) Lab Interpretation (test code = Normal 23208-5) [facility]
[2022-05-02] MEDS ORDERED: MAGNES/ALUMIN/SIMET 30ML UCUP ONE (21:55)
[2022-05-02] MEDS ORDERED: NA CHLORIDE 0.9% 1,000 ML ONE (21:56)
[2022-05-02] MEDS ORDERED: LIDOCAINE VISCOUS 2% SOLN 15 ML UDC ONE (21:56)
[2022-05-02] MEDS ORDERED: FAMOTIDINE 20 MG/2 ML VIAL IV ONE (21:56)
[2022-05-02] MEDS ORDERED: MORPHINE 4 MG/ML SYR ONE (21:56)
[2022-05-02] MEDS ORDERED: ONDANSETRON 4 MG/2 ML VIAL ONE (21:57)
[2022-05-02 22:00] LABS: Urine Blood Trace-intact (Negative); Urine Glucose Negative (Negative); Urine Protein Negative (Negative); Urine Specific Gravity >=1.030 (1.005-1.030); Urine pH 5.5 (5.0-7.0)
[2022-05-02 22:11] LABS: Urine Specific Gravity/Preg >1.030 (1.005-1.030)
[2022-05-02 22:13] LABS: RBC Red Blood Cell Count 4.13 M/uL (3.86-4.86)
[2022-05-02 22:15] LABS: Absolute Lymphocytes (CBC) 1.9 K/uL (0.7-4.9); Lymphocytes % 18.5 % (15.3-44.8); MCV 89.4 fL (80-100); MPV 6.8 fL (7.6-11.3)
--- NOTE | 2022-05-02 22:18 | RAD REPORT ---
EXAM DESCRIPTION: US - Abdomen Exam Limited - 05/02/2022 10:06 pm CLINICAL HISTORY: ABD PAIN COMPARISON: None FINDINGS: The gallbladder demonstrates a small shadowing stone. No pericholecystic fluid or gallblad glen wall thickening. The common bile duct is normal measuring 5 mm. The liver demonstrates no findings of intrahepatic biliary dilatation. IMPRESSION: Cholelithiasis but no sonographic evidence of acute cholecystitis.
[2022-05-02 22:30] LABS: Albumin 3.3 g/dL (3.4-5.0); Bilirubin Total 0.4 mg/dL (0.2-1.0); Protein, Total 6.8 g/dL (6.4-8.2); Troponin High Sensitivity 3.7 pg/mL (<58.9)
[2022-05-02 22:31] LABS: Potassium 3.5 mmol/L (3.5-5.1)
--- NOTE | 2022-05-02 23:58 | ER ---
Nurse's Notes [facility] Name: Claudine Herron Age: 41 yrs Sex: Female : 1980 Arrival Date: 05/02/2022 Time: 21:32 Bed 2 Private MD: Diagnosis: Epigastric pain Presentation: 05/02 21:39 Chief complaint: EMS states: PT reports about 30 to 35 minutes ago she started having a kd3 stabbing pain in her epigastric region that radiates to her back. It no longer radiates to the back but is now traveling up the sternum. vital signs are stable. Coronavirus screen: Vaccine status: Patient reports receiving the 2nd dose of the covid vaccine. Dermira. Ebola Screen: No symptoms or risks identified at this time. Initial Sepsis Screen: Does the patient meet any 2 criteria? No. Patient's initial sepsis screen is negative. Does the patient have a suspected source of infection? No. Patient's initial sepsis screen is negative. Risk Assessment: Do you want to hurt yourself or someone else? Patient reports no desire to harm self or others. Onset of symptoms was May 02, 2022. 21:39 Method Of Arrival: EMS: [facility] kd3 21:39 Acuity: BENJA 3 kd3 Triage Assessment: 21:45 General: Appears in no apparent distress. uncomfortable, Behavior is calm, cooperative. kd3 Pain: Complains of pain in epigastric area Pain radiates to thoracic area. Neuro: Level of Consciousness is awake, alert, obeys commands, Oriented to person, place, time, situation. Cardiovascular: Patient's skin is warm and dry. Respiratory: Airway is patent Trachea midline Respiratory effort is even, unlabored, Respiratory pattern is regular, symmetrical. GI: Abdomen is non-distended. 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 - Social history:: Smoking status: unknown. - Family history:: not pertinent. - Hospitalizations: : No recent hospitalization is reported. Screenin:46 [facility] ED Fall Risk Assessment (Adult) Score/Fall Risk Level 0 - 2 = Low Risk. Humpty kd3 Dumpty Scale Fall Assessment Tool (age< 18yrs) Age 13 years and above (1 pt) Gender Female (1 pt) Diagnosis Other diagnosis (1 pt) Cognitive Impairments Oriented to own ability (1 pt) Environmental Factors Patient placed in bed (2 pts) Response to Surgery/Sedation/Anesthesia Medication Usage Other medications/ None (1 pt) Fall Risk Score/ Level Low Fall Risk: < 11 points [place] to surroundings. Abuse screen: Denies threats or abuse. Denies injuries from another. Nutritional screening: No deficits noted. Tuberculosis screening: No symptoms or risk factors identified. Fall Risk Gait- Normal/Bed Rest/Wheelchair (0 pts). Assessment: 23:33 General: Appears in no apparent distress. Behavior is calm, cooperative. Neuro: Level kd3 of Consciousness is awake, alert, obeys commands, Oriented to person, place, time, situation. Cardiovascular: Patient's skin is warm and dry. Respiratory: Airway is patent Trachea midline Respiratory effort is even, unlabored, Respiratory pattern is regular, symmetrical. Vital Signs: 21:39 BP 146 / 99; Pulse 56; Resp 18; Temp 97.9(O); Pulse Ox 100% on R/A; Weight 49.9 kg; kd3 Height 5 ft. 5 in. (165.10 cm); Pain 8/10; 23:33 BP 123 / 84; Pulse 62; Resp 16; Pulse Ox 100% on R/A; kd3 12 00:30 BP 114 / 70; Pulse 65; Resp 16; Temp 98; Pulse Ox 100% ; Pain 0/10; pf1 05/02 21:39 Body Mass Index 18.30 (49.90 kg, 165.10 cm) kd3 ED Course: 05/02 21:32 Patient arrived in ED. mw2 21:34 Sumaya Otto, DESTIN is Primary Nurse. kd3 21:35 Shay Renae MD is Attending Physician. rn 21:45 Triage completed. kd3 21:45 Arm band placed on right wrist. kd3 21:46 Patient has correct armband on for positive identification. Client placed on continuous kd3 cardiac and pulse oximetry monitoring. NIBP monitoring applied. 21:46 No provider procedures requiring assistance completed. Maintain EMS IV. Dressing kd3 intact. Good blood return noted. Site clean \T\ dry. Gauge \T\ site: 20 G L A/C. Patient maintains SpO2 saturation greater than 95% on room air. 22:02 CBC with Diff Sent. kd3 22:02 CMP Sent. kd3 22:02 Lipase Sent. kd3 22:08 US Abdomen Limited In Process Unspecified. EDMS 22:55 CT Abd/Pelvis - IV Contrast Only In Process Unspecified. EDMS 23:58 Mickey Pak MD is Referral Physician. rn 05/03 00:40 IV discontinued, intact, bleeding controlled, No redness/swelling at site. Pressure pf1 dressing applied. Administered Medications: 05/02 22:00 Drug: NS 0.9% 1000 ml Route: IV; Rate: 1 bolus; Site: left antecubital; pf1 23:00 Follow up: IV Status: Completed infusion; IV Intake: 1000ml pf1 22:00 Drug: Pepcid (famotidine) 20 mg Route: IVP; Site: left antecubital; pf1 23:00 Follow up: Response: No adverse reaction; Marked relief of symptoms pf1 22:00 Drug: Zofran (Ondansetron) 4 mg Route: IVP; Site: left antecubital; pf1 23:00 Follow up: Response: No adverse reaction pf1 22:00 Drug: morphine 4 mg Route: IVP; Infused Over: 4 mins; Site: left antecubital; pf1 23:00 Follow up: Response: No adverse reaction; Pain is decreased pf1 22:00 Drug: GI Cocktail without - (Maalox Suspension 30 ml, Lidocaine Liquid 2 % 15 pf1 ml) Route: PO; 23:00 Follow up: Response: No adverse reaction; Pain is decreased pf1 Medication: 21:48 VIS not applicable for this client. kd3 Intake: 23:00 IV: 1000ml; Total: 1000ml. pf1 Outcome: 23:58 Discharge ordered by . rn 05/03 00:40 Condition: improved pf1 Discharge instructions given to patient, family, Instructed on discharge instructions, follow up and referral plans. medication usage, Demonstrated understanding of instructions, follow-up care, medications, Prescriptions given X 1. 00:40 Discharged to home ambulatory, with family. pf1 00:40 Patient left the ED. pf1 Signatures: Dispatcher [employer] EDMS Shay Renae MD MD rn Mary Carmen Khalil 2 Sumaya Otto RN RN kd3 Danielle shore RN RN pf1
--- NOTE | 2022-05-02 23:58 | EDPHYS ---
Physician Documentation [facility] Name: Claudine Herron Age: 41 yrs Sex: Female : 1980 Arrival Date: 05/02/2022 Time: 21:32 Bed 2 Private MD: ED Physician Shay Renae HPI: 05/02 22:14 This 41 yrs old Female presents to ER via EMS with complaints of Epigastric Pain. rn 22:14 The patient presents with abdominal pain in the epigastric area. Onset: The rn symptoms/episode began/occurred today. The symptoms radiate to back. Associated signs and symptoms: Pertinent positives: chest pain, nausea, Pertinent negatives: blood in stools, diarrhea, dysuria, fever, shortness of breath. The symptoms are described as sharp, stabbing. Modifying factors: The symptoms are alleviated by nothing, the symptoms are aggravated by touching the area. Severity of pain: At its worst the pain was moderate in the emergency department the pain has improved. The patient has not experienced similar symptoms in the past. The patient has not recently seen a physician. Pt reports epigastric abd pain, started today, radiates to back and now to chest, assoc with nausea, no vomiting. No fever. No trauma. No hx of pancreatitis or gallbladder problems. No blood in stool. No cough/sob. Ate wingstop earlier today. . 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 - Social history:: Smoking status: unknown. - Family history:: not pertinent. - Hospitalizations: : No recent hospitalization is reported. ROS: 22:14 Constitutional: Negative for fever, chills, and weight loss, Eyes: Negative for injury, rn pain, redness, and discharge, Neck: Negative for injury, pain, and swelling, Cardiovascular: Negative for palpitations, and edema, Respiratory: Negative for shortness of breath, cough, wheezing, and pleuritic chest pain, Abdomen/GI: Negative for vomiting, diarrhea, and constipation Back: Negative for injury MS/Extremity: Negative for injury and deformity, Skin: Negative for injury, rash, and discoloration, Neuro: Negative for headache, weakness, numbness, tingling, and seizure. Exam: 22:14 Constitutional: This is a well developed, well nourished patient who is awake, alert, rn and in no acute distress. Head/Face: Normocephalic, atraumatic. Cardiovascular: Regular rate and rhythm. No pulse deficits. Respiratory: No increased work of breathing, no retractions or nasal flaring. Abdomen/GI: soft, + epigastric abd pain, no swelling, neg fraga Skin: Warm, dry MS/ Extremity: Pulses equal, no cyanosis. Neuro: Awake and alert, GCS 15 23:24 ECG was reviewed by the Attending Physician. rn Vital Signs: 21:39 BP 146 / 99; Pulse 56; Resp 18; Temp 97.9(O); Pulse Ox 100% on R/A; Weight 49.9 kg; kd3 Height 5 ft. 5 in. (165.10 cm); Pain 8/10; 23:33 BP 123 / 84; Pulse 62; Resp 16; Pulse Ox 100% on R/A; kd3 05/03 00:30 BP 114 / 70; Pulse 65; Resp 16; Temp 98; Pulse Ox 100% ; Pain 0/10; pf1 05/02 21:39 Body Mass Index 18.30 (49.90 kg, 165.10 cm) kd3 MDM: 05/02 21:35 Patient medically screened. rn 22:32 ED course: Pt with marked improvement and decrease in pain. Still waiting on CT. . rn 23:56 Differential diagnosis: cholecystitis, Cholelithiasis, gastritis, gastroesophageal rn reflux disease, non-specific abd pain, pancreatitis, Peptic Ulcer Disease, Perf. Gastric Ulcer, urinary tract infection. Data reviewed: vital signs, nurses notes, lab test result(s), radiologic studies, CT scan, ultrasound, and as a result, I will discharge patient. Counseling: I had a detailed discussion with the patient and/or guardian regarding: the historical points, exam findings, and any diagnostic results supporting the discharge/admit diagnosis, lab results, radiology results, the need for outpatient follow up, to return to the emergency department if symptoms worsen or persist or if there are any questions or concerns that arise at home. Response to treatment: the patient's symptoms have markedly improved after treatment, and as a result, I will discharge patient. Special discussion: I discussed with the patient/guardian in detail that at this point there is no indication for admission to the hospital. It is understood, however, that if the symptoms persist or worsen the patient needs to return immediately for re-evaluation. Based on the history and exam findings, there is no indication for further emergent testing or inpatient evaluation. I discussed with the patient/guardian the need to see the teletype operator for further evaluation of the symptoms. I discussed with the patient/guardian the need to see the primary care provider for further evaluation of the symptoms. ED course: No acute findings on CT abdomen to explain pain. Normal WBC. Normal lfts/lipase/trop. Much better in terms of pain. Stable vitals. Will prescribe antacid medication and have her f/u with GI. Return precautions given and understood. Family in room with her entire time of counseling.. 23:58 ED course: U/S shows small stone in gallbladder, lfts and lipase normal. NO signs of rn cholecystitis. . 05/02 21:44 Order name: CBC with Diff; Complete Time: 22:27 05/02 21:44 Order name: CMP; Complete Time: 22:32 05/02 21:44 Order name: Lipase; Complete Time: 22:32 05/02 21:44 Order name: Troponin High Sensitivity; Complete Time: 22:32 05/02 22:00 Order name: Urine --Ancillary (enter results); Complete Time: 22:27 mw2 05/02 22:00 Order name: Urine Dipstick-Ancillary; Complete Time: 22:27 EDMS 05/02 21:44 Order name: CT Abd/Pelvis - IV Contrast Only rn 05/02 21:44 Order name: US Abdomen Limited; Complete Time: 22:27 05/02 21:44 Order name: EKG; Complete Time: 21:44 05/02 21:44 Order name: IV Saline Lock; Complete Time: 21:48 05/02 21:44 Order name: Labs collected and sent; Complete Time: 22:01 05/02 21:44 Order name: Urine Dipstick-Ancillary (obtain specimen); Complete Time: 21:59 rn 05/02 21:44 Order name: Urine Test (obtain specimen); Complete Time: 21:59 rn 05/02 21:44 Order name: EKG - Nurse/Tech; Complete Time: 21:48 rn EC:24 Rate is 57 beats/min. Rhythm is regular. Right axis deviation noted. QRS is positive in rn lead aVF and negative in lead I. SD interval is normal. QRS interval is normal. QT interval is normal. No Q waves. T waves are Normal. No ST changes noted. Clinical impression: Sinus bradycardia. Interpreted by me. Reviewed by me. Administered Medications: 22:00 Drug: NS 0.9% 1000 ml Route: IV; Rate: 1 bolus; Site: left antecubital; pf1 23:00 Follow up: IV Status: Completed infusion; IV Intake: 1000ml pf1 22:00 Drug: Pepcid (famotidine) 20 mg Route: IVP; Site: left antecubital; pf1 23:00 Follow up: Response: No adverse reaction; Marked relief of symptoms pf1 22:00 Drug: Zofran (Ondansetron) 4 mg Route: IVP; Site: left antecubital; pf1 23:00 Follow up: Response: No adverse reaction pf1 22:00 Drug: morphine 4 mg Route: IVP; Infused Over: 4 mins; Site: left antecubital; pf1 23:00 Follow up: Response: No adverse reaction; Pain is decreased pf1 22:00 Drug: GI Cocktail without - (Maalox Suspension 30 ml, Lidocaine Liquid 2 % 15 pf1 ml) Route: PO; 23:00 Follow up: Response: No adverse reaction; Pain is decreased pf1 Disposition Summary: 05/02/22 23:58 Discharge Ordered Location: Home rn Problem: new rn Symptoms: have improved rn Condition: Stable rn Diagnosis - Epigastric pain rn Followup: rn - With: Mickey Pak MD - When: As needed - Reason: Recheck today's complaints, Re-evaluation by your physician Discharge Instructions: - Discharge Summary Sheet rn - Abdominal Pain, Adult rn - Upper Endoscopy, Adult rn Forms: - Medication Reconciliation Form rn - Thank You Letter rn - 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
[2022-05-03 00:49] VITALS: O2SAT 100
[2022-05-03 00:52] VITALS: BP 114/70; TEMP 98
--- NOTE | 2022-05-03 14:56 | EKG ---
Test Date: 2022-05-02 Test Time: 21:45:02 Reception Clerk: RV MEASUREMENT RESULTS: Intervals: Rate: 57 AR: 140 QRSD: 84 QT: 464 QTc: 451 [place]: P: 45 AR: 140 QRS: 93 T: 56 INTERPRETIVE STATEMENTS: Sinus bradycardia Rightward axis Borderline ECG No previous ECG available for comparison Electronically Signed On 05-03-22 14:55:00 RADIOTELEPHONE OPERATOR by Stalin Horner
--- NOTE | 2022-05-03 18:00 | RAD REPORT ---
EXAM DESCRIPTION: CT - Abdomen Pelvis W Contrast - 05/03/2022 6:58 am CLINICAL HISTORY: 41 years Female, epigastric abd pain TECHNIQUE: Helical CT axial images are obtained from the lung bases to the pubic symphysis with IV c ontrast. No oral contrast was administered. Multiplanar reconstruction. This exam was performed accor ding to our departmental dose-optimization program, which includes automated exposure control, adjust ment of the mA and/or kV according to patient size and/or use of iterative reconstruction technique. COMPARISON: None. FINDINGS: Limited exam secondary to extensive streak artifacts from posterior thoracolumbar fusion r ods. LUNG BASES: No basilar consolidation or effusions. LIVER: Normal in size. Normal attenuation. No focal masses. There is mild periportal edema. HEPATOBILIARY: Mildly distended gallbladder. No intra- or extrahepatic ductal dilatation. SPLEEN: Normal size. PANCREAS: Normal size and contour. No focal mass. ADRENAL GLANDS: Normal size. No adrenal masses. KIDNEYS: Bilateral kidneys are normal in size without obstructing calculi or hydronephrosis. No nep hrolithiasis. No significant cysts are present. No focal solid mass. BOWEL AND MESENTERY: No small or large bowel dilatation. No colonic diverticulosis. Normal appendix . No abnormal mesenteric lymphadenopathy. No free fluid or pneumoperitoneum. RETROPERITONEUM: Normal caliber abdominal aorta without aneurysm. No abnormal retroperitoneal lymphad enopathy. PELVIS: Urinary bladder is unremarkable. Status post hysterectomy. ABDOMINAL WALL: The abdominal wall is intact. BONES: Posterior thoracolumbar fusion rods for scoliotic curvature correction with multilevel mariajose ectomy . No suspicious osseous lytic or blastic lesions seen. IMPRESSION: 1. Limited exam secondary to extensive streak artifacts from posterior thoracolumbar f usion rods. 2. Mild periportal edema, nonspecific finding with various etiologies including overhydration, pass claudia hepatic congestion, hepatitis, cholangitis, to name a few entities. 3. Otherwise, no acute intra-abdominal or pelvic disease. Normal appendix. 4. Thoracolumbar scoliosis with posterior thoracolumbar fusion rods. 5. Status post hysterectomy. Electronically signed by: David Harris MD 05/02/2022 11:33 PM SHIELD RUNNER Due to temporary technical issues with the PACS/Fluency reporting system, reports are being signed by the in house radiologists without review as a courtesy to insure prompt reporting. The interpreting radiologist is fully responsible for the content of the report.
== END 2022-05-03 00:40 | disposition home or self-care (01) ==
LOC: ER 21:28
DX: R10.13 Epigastric pain (principal); Z88.0 Allergy status to penicillin; Z88.1 Allergy status to other antibiotic agents; Z88.2 Allergy status to sulfonamides; Z91.040 Latex allergy status; Z91.048 Other nonmedicinal substance allergy status
CPT/HCPCS: 93005; 85025; 36415; 81025; 81003; 84484; 83690; 80053; 74177; 76705; Q9967; J7030; J2405; 96361; 96374; 96375; 99284

== ENCOUNTER 2022-11-17 21:34 | Emergency (ER) | payer OTHER ==
--- OUTSIDE RECORDS SUMMARY | 2022-11-17 21:40 | XMS REPORT | Continuity of Care Document ---
:[address] [facility] t Address [address] [place] [address] Care Team Providers Name Role Phone Dina Marino Primary Care Physician Dina Marino Attending Clinician Unavailable Mirian Govea Attending Clinician Unavailable Bishnu Webb Attending Clinician Unavailable AARON ABREU K.HBambi Attending Clinician Unavailable Aaron Abreu MD K.H. Attending Clinician Doctor Unassigned, [place] Attending Clinician Unavailable MARCELINA JONES Attending Clinician Unavailable MARCELINA JONES Attending Clinician Unavailable Bishnu Webb MD Attending Clinician HELLEN LOPEZ Attending Clinician Unavailable Ambrose Reyes Attending Clinician AMBROSE MACKENZIE Attending Clinician Unavailable BISHNU WEBB Attending Clinician Unavailable AARON ABREU K.HBambi Admitting Clinician Unavailable Payers Payer Name Policy Type Policy Number Effective Date Expiration Date S kary [facility] VIRGEN [id number] 2022 00:00:00 FOR C1 [id number] Common Spiri t LIFE - [facility] FOR C1 [id number] Common Spiri t LIFE - [facility] FOR C1 [id number] Common Spiri t LIFE [facility] Problems Condition Condition Condition Status Onset Resolution [...] 00:00: [place] duration duration 00 Medica l Branch Anxiety Anxiety Problem Common [facility] Allergic Allergic Problem Commo n rhinitis rhinitis [facility] [id number] Encounter Problem Com mon for Spirit medication [facility] refill [facility] [id number] Other Problem Common chronic [facility] pain [facility] Depression Depression Problem C ommon [facility] [id number] Night Problem Common sweats [facility] [id number] Neurologic Problem Co mmon cardiac Spirit syncope [facility] [id number] History 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 [facility] [id number] Lesion of Problem Com mon lip [facility] [id number] Dorsalgia, Problem Co mmon unspecifie Spirit d [facility] [id number] Constipati Problem Com mon on, Spirit unspecifie [facility] d constipati [facility] on type Medical [facility] Allergies, Adverse Reactions, Alerts Allergy Allergy Status [...] 00:00: [place] ANTIBIOT 00 Medical ICS) Branch Latex Propensi Active Unknown - 2017-05 Unive rs ty to See comments 2-10 ity of adverse 00:00: [place] reaction 00 Medical s Branch Penicill Propensi Active Unknown - 2017-05 Uni vers in ty to See comments 2-10 ity of adverse 00:00: [place] reaction 00 Medical s Branch LATEX DRUG Active Unknown-Cmnt 2017-05 Univ ers INGREDI 2-10 ity of 00:00: [place] Medical Branch PENICILL DRUG Active Unknown-Cmnt 2017-05 Un norma IN INGREDI 2-10 ity of 00:00: [place] 00 Medical Branch Penicill Propensi Active Hives Univer s ins ty to 8-28 ity of adverse 00:00: [place] reaction 00 Medical s Branch Sulfa Propensi Active Unknown - Unive rs (Sulfona ty to See comments 8 it y of mide adverse 00:00: [place] Antibiot reaction 00 Medica l ics) s Branch Penicill Propensi Active Hives Univer s ins ty to 8-28 ity of adverse 00:00: [place] reaction 00 Medical s Branch Sulfa Propensi Active Unknown - Unive rs (Sulfona ty to See comments 01-17 it y of mide adverse 00:00: [place] Antibiot reaction 00 Medica l ics) s Branch PENICILL Drug Active Hives Univers INS Class 8-28 ity of 00:00: [place] Medical Branch SULFA Drug Active Unknown-Cmnt Univ ers (SULFONA Class 8-28 ity of MIDE 00:00: [place] ANTIBIOT 00 Medical ICS) Branch 0 Drug Active bumps Common allergy Spirit - [facility] Social History Social Habit Start Date Stop Date Quantity Comments Source History of Common Spirit - Tobacco Use [facility] Sex Assigned At Common Sp jeimy - [facility] Exposure to 2022-09-12 2022-09-22 Not sure University SARS-CoV-2 00:00:00 07:53:00 [facility] (event) Branch Alcohol intake 2022-09-02 2022-09-02 Current University 00:00:00 00:00:00 non-drinker of [facility] alcohol (finding) Branch Tobacco use and 2022-07-29 2022-07-29 Smokeless tobacco Un iversity of exposure 00:00:00 00:00:00 non-user [facility] Smoking Status Start Date Stop Date Source Unknown if ever smoked [facility] Never smoked tobacco [facility] Medications Ordered Filled Start Stop Current Ordering Indication Dosage Frequency Signature Comments Components Source Medication Medication Date Date Medication? Clinician (SIG) Name Name CYCLOBENZAP 2022- No Take by Un norma RINE HCL 4-18 04-18 mouth. ity of (FLEXERIL 10:01: 00:00 [place] ORAL) 48 :00 Medical Branch GABAPENTIN, 2022- No Unive rs BULK, MISC 18 18 ity of 10:01: 00:00 [place] 48 :00 Medical Branch NAPROXEN/ES 0 2022- No Take by Un norma OMEPRAZOLE -18 04-18 mouth. ity of MAG (VIMOVO 10:01: 00:00 [place] ORAL) 48 :00 Medical Branch CYCLOBENZAP 2022- No Take by Un norma RINE HCL -18 04-18 mouth. ity of (FLEXERIL 10:01: 00:00 [place] ORAL) 48 :00 Medical Branch GABAPENTIN, 2022- No Unive rs BULK, MISC 09-0718 ity of 10:01: 00:00 [place] 48 :00 Medical Branch NAPROXEN/ES 0 2022- No Take by Un norma OMEPRAZOLE -18 04-18 mouth. ity of MAG (VIMOVO 10:01: 00:00 [place] ORAL) 48 :00 [facility] BABY 2022-0 Yes Take by Univers ASPIRIN 4-18 mouth. ity of ORAL 10:00: [place] 08 Medical [place] BABY 2022-0 Yes Take by Univers ASPIRIN 4-18 mouth. ity of ORAL 10:00: 08 Medical Branch BABY 2022-0 Yes Take by Univers ASPIRIN 4-18 mouth. ity of ORAL 10:00: [place] 08 Medical Branch BABY 2022-0 Yes Take by Univers ASPIRIN 4-18 mouth. ity of ORAL 10:00: [place] 08 Medical [place] BABY 2022-0 Yes Take by Univers ASPIRIN 4-18 mouth. ity of ORAL 10:00: 08 [facility] BABY 2022-0 Yes Take by Univers ASPIRIN 4-18 mouth. ity of ORAL 10:00: [place] 08 Medical Branch verapamiL 3-0 2023- Yes [id number] 240mg Take 1 Univers 240 mg ER 09-07 05-19 tablet by ity of tablet 00:00: 04:59 mouth in [place] 00 :00 the Medical morning Branch for 30 days. verapamiL 2023-0 2023- Yes [id number] 240mg Take 1 Univers 240 mg ER 4-18 05-19 tablet by ity of tablet 00:00: 04:59 mouth in [place] 00 :00 the Medical morning Branch for 30 days. verapamiL 2023-0 2023- Yes [id number] 240mg Take 1 Univers 240 mg ER 4-18 05-19 tablet by ity of tablet 00:00: 04:59 mouth in [place] 00 :00 the Medical morning Branch for 30 days. BABY 2023-0 Yes Take by Univers ASPIRIN 4-13 mouth. ity of ORAL 08:42: [place] 14 Medical Branch BABY 2023-0 Yes Take by Univers ASPIRIN 4-13 mouth. ity of ORAL 08:42: [place] 14 [facility] verapamiL 2023-0 2023- No 240mg Take 1 Univ ers 240 mg ER 3-30 04-18 tablet by ity of tablet 00:00: 00:00 mouth in [place] 00 :00 the Medical morning. Branch verapamiL 2023-0 2023- No 240mg Take 1 Univ ers 240 mg ER 3-30 04-18 tablet by ity of tablet 00:00: 00:00 mouth in [place] 00 :00 the Medical morning. Branch omeprazole 2023-0 Yes [id number] 40mg Take 1 Univers 40 mg 3-10 capsule by ity of capsule 00:00: mouth in [place] 00 the Medical morning. Branch omeprazole 2023-0 Yes [id number] 40mg Take 1 Univers 40 mg 3-10 capsule by ity of capsule 00:00: mouth in [place] 00 the Medical morning. Branch omeprazole 2023-0 Yes [id number] 40mg Take 1 Univers 40 mg 3-10 capsule by ity of capsule 00:00: mouth in [place] 00 the Medical morning. Branch omeprazole 2023-0 Yes [id number] 40mg Take 1 Univers 40 mg 3-10 capsule by ity of capsule 00:00: mouth in [place] 00 the Medical morning. Branch omeprazole 2023-0 Yes [id number] 40mg Take 1 Univers 40 mg 3-10 capsule by ity of capsule 00:00: mouth in [place] 00 the Medical morning. Branch BABY 2023-0 Yes Take by Univers ASPIRIN 3-09 mouth. ity of ORAL 15:19: [place] [address] Medical Branch BABY 2023-0 Yes Take by Univers ASPIRIN 3-09 mouth. ity of ORAL 15:19: [place] 34 Medical Branch CYCLOBENZAP 0 Yes Take by Uni vers RINE HCL 3-09 mouth. ity of (FLEXERIL 08:13: [place] ORAL) 30 Medical Branch GABAPENTIN, 0 Yes Univer s BULK, MISC 3-09 ity of 08:13: [place] 30 Medical Branch NAPROXEN/ES 0 Yes Take by Uni vers OMEPRAZOLE 3-09 mouth. ity of MAG (VIMOVO 08:13: [place] ORAL) 30 Medical Branch CYCLOBENZAP 0 Yes Take by Uni vers RINE HCL 3-09 mouth. ity of (FLEXERIL 08:13: [place] ORAL) 30 Medical Branch GABAPENTIN, 0 Yes Univer s BULK, MISC 3-09 ity of 08:13: [place] 30 Medical Branch NAPROXEN/ES 0 Yes Take by Uni vers OMEPRAZOLE 3-09 mouth. ity of MAG (VIMOVO 08:13: [place] ORAL) 30 Medical Branch CYCLOBENZAP 0 Yes Take by Uni vers RINE HCL 3-09 mouth. ity of (FLEXERIL 08:13: [place] ORAL) 30 Medical Branch GABAPENTIN, 0 Yes Univer s BULK, MISC 3-09 ity of 08:13: [place] 30 Medical Branch NAPROXEN/ES 0 Yes Take by Uni vers OMEPRAZOLE 3-09 mouth. ity of MAG (VIMOVO 08:13: [place] ORAL) 30 Medical Branch CYCLOBENZAP 0 Yes Take by Uni vers RINE HCL 3-09 mouth. ity of (FLEXERIL 08:13: [place] ORAL) 30 Medical Branch GABAPENTIN, 0 Yes Univer s BULK, MISC 3-09 ity of 08:13: [place] 30 Medical Branch NAPROXEN/ES 0 Yes Take by Uni vers OMEPRAZOLE 3-09 mouth. ity of MAG (VIMOVO 08:13: [place] ORAL) 30 Medical Branch CYCLOBENZAP 0 Yes Take by Uni vers RINE HCL 3-09 mouth. ity of (FLEXERIL 08:13: [place] ORAL) 30 Medical Branch GABAPENTIN, 0 Yes Univer s BULK, MISC 3-09 ity of 08:13: [place] 30 Medical Branch NAPROXEN/ES 2022-0 Yes Take by Uni vers OMEPRAZOLE 3-09 mouth. ity of MAG (VIMOVO 08:13: [place] ORAL) 30 Medical Branch CYCLOBENZAP 0 Yes Take by Uni vers RINE HCL 3-09 mouth. ity of (FLEXERIL 08:13: [place] ORAL) 30 Medical Branch GABAPENTIN, 0 Yes Univer s BULK, MISC 3-09 ity of 08:13: [place] 30 Medical Branch NAPROXEN/ES 2022-0 Yes Take by Uni vers OMEPRAZOLE 3-09 mouth. ity of MAG (VIMOVO 08:13: [place] ORAL) 30 Medical Branch CYCLOBENZAP 0 Yes Take by Uni vers RINE HCL 3-09 mouth. ity of (FLEXERIL 08:13: [place] ORAL) 30 Medical Branch GABAPENTIN, 0 Yes Univer s BULK, MISC 3-09 ity of 08:13: 30 Medical Branch NAPROXEN/ES 0 Yes Take by Uni vers OMEPRAZOLE 3-09 mouth. ity of MAG (VIMOVO 08:13: [place] ORAL) 30 Medical Branch BABY 0 Yes Take by Univers ASPIRIN 3-09 mouth. ity of ORAL 08:13: Medical Branch BABY 2022-0 Yes Take by Univers ASPIRIN 3-09 mouth. ity of ORAL 08:13: Medical Branch BABY 2022-0 Yes Take by Univers ASPIRIN 3-09 mouth. ity of ORAL 08:13: 02 Medical Branch sucralfate 2023-0 Yes [id number] 1g Take 1 Univers 1 gram 1-26 tablet by ity of tablet 00:00: mouth 4 (four) Medical times Branch daily. sucralfate 2023-0 Yes [id number] 1g Take 1 Univers 1 gram 1-26 tablet by ity of tablet 00:00: mouth 4 (four) Medical times Branch daily. sucralfate 2023-0 Yes [id number] 1g Take 1 Univers 1 gram 1-26 tablet by ity of tablet 00:00: mouth 4 (four) Medical times Branch daily. sucralfate 2023-0 Yes [id number] 1g Take 1 Univers 1 gram 1-26 tablet by ity of tablet 00:00: mouth 4 (four) Medical times Branch daily. sucralfate 2023-0 Yes [id number] 1g Take 1 Univers 1 gram 1-26 tablet by ity of tablet 00:00: mouth 4 (four) Medical times Branch daily. BABY 2020-0 Yes Take by Univers ASPIRIN 3-08 mouth. ity of ORAL 20:29: [place] [address] Medical Branch BABY 2020-0 Yes Take by Univers ASPIRIN 3-08 mouth. ity of ORAL 20:29: [place] [address] Medical Branch BABY 2020-0 Yes Take by Univers ASPIRIN 3-08 mouth. ity of ORAL 14:29: [place] [address] Medical Branch BABY 0 Yes Take by Univers ASPIRIN 3-08 mouth. ity of ORAL 14:29: [place] [address] Medical Branch ALPRAZolam Yes [id number] 1mg Take 1 U nivers 1 mg tablet 3-01 tablet by ity of 00:00: mouth 2 (two) Medical times Branch daily. verapamil Yes [id number] 120mg Take 1 Univers SR 120 mg 3-01 tablet by ity o f ER tablet 00:00: mouth 2 (two) Medical times Branch daily. ALPRAZolam Yes [id number] 1mg Take 1 U nivers 1 mg tablet 3-01 tablet by ity of 00:00: mouth 2 (two) Medical times Branch daily. verapamil Yes [id number] 120mg Take 1 Univers SR 120 mg 3-01 tablet by ity o f ER tablet 00:00: mouth 2 (two) Medical times Branch daily. ALPRAZolam Yes [id number] 1mg Take 1 U nivers 1 mg tablet 3-01 tablet by ity of 00:00: mouth 2 (two) Medical times Branch daily. verapamil Yes [id number] 120mg Take 1 Univers SR 120 mg 3-01 tablet by ity o f ER tablet 00:00: mouth 2 (two) Medical times Branch daily. ALPRAZolam Yes [id number] 1mg Take 1 U nivers 1 mg tablet 3-01 tablet by ity of 00:00: mouth 2 (two) Medical times Branch daily. verapamil 2020-0 Yes [id number] 120mg Take 1 Univers SR 120 mg 3-01 tablet by ity o f ER tablet 00:00: mouth 2 (two) Medical times Branch daily. ALPRAZolam 2020-0 Yes [id number] 1mg Take 1 U nivers 1 mg tablet 3-01 tablet by ity of 00:00: mouth (two) Medical times Branch daily. verapamil 2020-0 Yes [id number] 120mg Take 1 Univers SR 120 mg 3-01 tablet by ity o f ER tablet 00:00: mouth (two) Medical times Branch daily. ALPRAZolam 2020-0 Yes [id number] 1mg Take 1 U nivers 1 mg tablet 3-01 tablet by ity of 00:00: mouth (two) Medical times Branch daily. verapamil 2020-0 Yes [id number] 120mg Take 1 Univers SR 120 mg 3-01 tablet by ity o f ER tablet 00:00: mouth (two) Medical times Branch daily. ALPRAZolam 2020-0 Yes [id number] 1mg Take 1 U nivers 1 mg tablet 3-01 tablet by ity of 00:00: mouth (two) Medical times Branch daily. verapamil 2020-0 Yes [id number] 120mg Take 1 Univers SR 120 mg 3-01 tablet by ity o f ER tablet 00:00: mouth (two) Medical times Branch daily. ALPRAZolam 2020-0 Yes [id number] 1mg Take 1 U nivers 1 mg tablet 3-01 tablet by ity of 00:00: mouth (two) Medical times Branch daily. verapamil 2020-0 Yes [id number] 120mg Take 1 Univers SR 120 mg 3-01 tablet by ity o f ER tablet 00:00: mouth (two) Medical times Branch daily. ALPRAZolam 2020-0 Yes [id number] 1mg Take 1 U nivers 1 mg tablet 3-01 tablet by ity of 00:00: mouth (two) Medical times Branch daily. verapamil 2021-0 Yes [id number] 120mg Take 1 Univers SR 120 mg 3-01 tablet by ity o f ER tablet 00:00: mouth (two) Medical times Branch daily. ALPRAZolam 2020-0 Yes [id number] 1mg Take 1 U nivers 1 mg tablet 3-01 tablet by ity of 00:00: mouth 2 [place] 00 (two) Medical times Branch daily. verapamil 2020- Yes [id number] 120mg Take 1 Univers SR 120 mg 3-01 tablet by ity o f ER tablet 00:00: mouth 2 00 (two) Medical times Branch daily. ALPRAZolam Yes [id number] 1mg Take 1 U nivers 1 mg tablet 3- tablet by ity of 00:00: mouth 2 00 (two) Medical times Branch daily. verapamil 2020- Yes [id number] 120mg Take 1 Univers SR 120 mg 3- tablet by ity o f ER tablet 00:00: mouth 2 00 (two) Medical times Branch daily. ALPRAZolam 3- No [id number] 1mg Take 1 Univers 1 mg tablet 07-2118 tablet by it y of 00:00: 00:00 mouth 2 [place] 00 :00 (two) Medical times Branch daily. verapamil 3- No [id number] 120mg Take 1 Univers SR 120 mg 07-2118 tablet by ity of ER tablet 00:00: 00:00 mouth 2 [place] :[place] (two) Medical times Branch daily. ALPRAZolam 3- No [id number] 1mg Take 1 Univers 1 mg tablet 07-2118 tablet by it y of 00:00: 00:00 mouth 2 [place] 00 :00 (two) Medical times Branch daily. verapamil 3- No [id number] 120mg Take 1 Univers SR 120 mg 07-2118 tablet by ity of ER tablet 00:00: 00:00 mouth 2 [place] 00 :00 (two) Medical times Branch daily. DULoxetine Yes [id number] 60mg Take 1 U nivers 60 mg 1-15 capsule by ity of capsule 00:00: mouth [place] 00 daily. Medical Branch DULoxetine Yes [id number] 60mg Take 1 U nivers 60 mg 1-15 capsule by ity of capsule 00:00: mouth [place] 00 daily. Medical Branch DULoxetine Yes [id number] 60mg Take 1 U nivers 60 mg 1-15 capsule by ity of capsule 00:00: mouth [place] 00 daily. Medical Branch DULoxetine 2021-0 Yes [id number] 60mg Take 1 U nivers 60 mg 1-15 capsule by ity of capsule 00:00: mouth [place] 00 daily. Medical Branch DULoxetine 0 Yes [id number] 60mg Take 1 U nivers 60 mg 1-15 capsule by ity of capsule 00:00: mouth [place] 00 daily. Medical Branch DULoxetine 0 Yes [id number] 60mg Take 1 U nivers 60 mg 1-15 capsule by ity of capsule 00:00: mouth [place] 00 daily. Medical Branch DULoxetine 0 Yes [id number] 60mg Take 1 U nivers 60 mg 1-15 capsule by ity of capsule 00:00: mouth [place] 00 daily. Medical Branch DULoxetine 0 Yes [id number] 60mg Take 1 U nivers 60 mg 1-15 capsule by ity of capsule 00:00: mouth [place] 00 daily. Medical Branch DULoxetine 0 Yes [id number] 60mg Take 1 U nivers 60 mg 1-15 capsule by ity of capsule 00:00: mouth [place] 00 daily. Medical Branch DULoxetine 0 Yes [id number] 60mg Take 1 U nivers 60 mg 1-15 capsule by ity of capsule 00:00: mouth [place] 00 daily. Medical Branch DULoxetine 0 Yes [id number] 60mg Take 1 U nivers 60 mg 1-15 capsule by ity of capsule 00:00: mouth [place] 00 daily. Medical Branch DULoxetine 0 Yes [id number] 60mg Take 1 U nivers 60 mg 1-15 capsule by ity of capsule 00:00: mouth [place] 00 daily. Medical Branch DULoxetine 0 Yes [id number] 60mg Take 1 U nivers 60 mg 1-15 capsule by ity of capsule 00:00: mouth [place] 00 daily. Medical Branch DULoxetine 0 Yes [id number] 60mg Take 1 U nivers 60 mg 1-15 capsule by ity of capsule 00:00: mouth [place] 00 daily. Medical Branch DULoxetine 0 Yes [id number] 60mg Take 1 U nivers 60 mg 1-15 capsule by ity of capsule 00:00: mouth [place] 00 daily. Medical Branch DULoxetine 2020-0 Yes [id number] 60mg Take 1 U nivers 60 mg 1-15 capsule by ity of capsule 00:00: mouth [place] 00 daily. Medical Branch DULoxetine 2021-0 Yes [id number] 60mg Take 1 U nivers 60 mg 1-15 capsule by ity of capsule 00:00: mouth 00 daily. Medical Branch ciprofloxac 2019-05- No [...] :00 1 dose, Medical 10 mg Sat Branch 04/26/20 at 1845, CORINA famotidine 2019-05- No 40mg 40 mg, Univ ers (PEPCID) 06-28 Oral, ity of tablet 40 00:45: 23:51 ONCE, 1 [place] mg 00 :00 dose, Sat Medical 04/26/20 at Branch 1845, COR[place] diphenhydrA 2019-05- No 25mg 25 mg, Uni vers MINE 06-28 Oral, ity of (BENADRYL) 00:45: 23:51 ONCE, 1 [place] as tablet 25 00 :00 dose, Sat Medic al mg 04/26/20 at Branch 1845, [place] predniSONE 2019-05- No [id number] 40mg Take 2 Univers 20 mg 06-28 tablets by ity of tablet 00:00: 05:59 mouth [place] 00 :00 daily for Medical 5 days. [place] permethrin 2019-05 Yes [id number] Cream 5%: Univers 5 % cream 2-05 Apply to ity of 00:00: entire 00 body; Medical leave on Branch for 8 to 14 hours before washing off with water permethrin 2019-05 Yes [id number] Cream 5%: Univers 5 % cream 2-05 Apply to ity of 00:00: entire 00 body; Medical leave on Branch for 8 to 14 hours before washing off with water permethrin 2020-1 Yes [id number] Cream 5%: Univers 5 % cream 2-05 Apply to ity of 00:00: entire [place] 00 body; Medical leave on Branch for 8 to 14 hours before washing off with water permethrin 2020-1 Yes [id number] Cream 5%: Univers 5 % cream 2-05 Apply to ity of 00:00: entire [place] 00 body; Medical leave on Branch for 8 to 14 hours before washing off with water permethrin 2020-1 Yes [id number] Cream 5%: Univers 5 % cream 2-05 Apply to ity of 00:00: entire [place] 00 body; Medical leave on Branch for 8 to 14 hours before washing off with water permethrin 2020-1 Yes [id number] Cream 5%: Univers 5 % cream 2-05 Apply to ity of 00:00: entire [place] 00 body; Medical leave on Branch for 8 to 14 hours before washing off with water permethrin 2020-1 Yes [id number] Cream 5%: Univers 5 % cream 2-05 Apply to ity of 00:00: entire [place] 00 body; Medical leave on Branch for 8 to 14 hours before washing off with water permethrin 2020-1 Yes [id number] Cream 5%: Univers 5 % cream 2-05 Apply to ity of 00:00: entire [place] 00 body; Medical leave on Branch for 8 to 14 hours before washing off with water permethrin 2020-1 Yes [id number] Cream 5%: Univers 5 % cream 2-05 Apply to ity of 00:00: entire [place] 00 body; Medical leave on Branch for 8 to 14 hours before washing off with water permethrin 2020-1 Yes [id number] Cream 5%: Univers 5 % cream 2-05 Apply to ity of 00:00: entire [place] 00 body; Medical leave on Branch for 8 to 14 hours before washing off with water permethrin 2020-1 Yes [id number] Cream 5%: Univers 5 % cream 2-05 Apply to ity of 00:00: entire [place] 00 body; Medical leave on Branch for 8 to 14 hours before washing off with water permethrin 2020-1 Yes [id number] Cream 5%: Univers 5 % cream 2-05 Apply to ity of 00:00: entire [place] 00 body; Medical leave on Branch for 8 to 14 hours before washing off with water permethrin 2019-05- No [id number] Cream 5%: Univers 5 % cream 06-27 Apply to ity o f 00:00: 00:00 entire [place] 00 :00 body; Medical leave on Branch for 8 to 14 hours before washing off with water permethrin 2019-05- No [id number] Cream 5%: Univers 5 % cream 06-27 Apply to ity o f 00:00: 00:00 entire [place] 00 :00 body; Medical leave on Branch for 8 to 14 hours before washing off with water famotidine 2019-05- No [id number] 20mg Take 1 Univers (PEPCID) 20 06-27-16 tablet by it y of mg tablet 00:00: 05:59 mouth 2 [place] 00 :00 (two) Medical times Branch daily for 10 days. ciprofloxac 2019-05- No [id number] 500mg Take 1 Univers in HCl 500 06-27- tablet by ity of mg tablet 00:00: 05:59 mouth 2 [place] 00 :00 (two) Medical times Branch daily for 5 days. NAPROXEN/ES Yes Take [...] ity of 18:04: [place] 02 Medical Branch NAPROXEN/ES Yes Take by Uni vers OMEPRAZOLE 8-28 mouth. ity of MAG (VIMOVO 13:06: [place] ORAL) Medical Branch NAPROXEN/ES Yes Take by Uni vers OMEPRAZOLE 8-28 mouth. ity of MAG (VIMOVO 13:06: [place] ORAL) 27 Medical Branch CYCLOBENZAP Yes Take by Uni vers RINE HCL 8-28 mouth. ity of (FLEXERIL 13:04: [place] ORAL) Medical Branch GABAPENTIN, Yes Univer s BULK, MISC 8-28 ity of 13:04: [place] 02 Medical Branch CYCLOBENZAP Yes Take [...] 00 times Medical tablet daily. Branch HYDROcodone Yes 1{tbl} Take 1 Tab [...] 00 times Medical tablet daily. Branch HYDROcodone 2022- No 1{tbl} Take 1 Tab Univers -acetaminop 8- 04-18 by mouth ity of hen (NORCO 00:00: 00:00 every 4 [place] as 5) 5-325 mg 00 :00 (four) Medica l tablet hours as Branch needed for Pain. naproxen 2022- No 500mg Take 1 Tab U nivers (NAPROSYN) 8 04-18 by mouth 2 it y of 500 mg 00:00: 00:00 (two) [place] tablet 00 :00 times Medical daily with Branch meals. cyclobenzap 2022- No 10mg Take 1 Tab Univers rine 8- 04-18 by mouth 3 ity of (FLEXERIL) 00:00: 00:00 (three) [place] as 10 mg 00 :00 times Medical tablet daily. Branch HYDROcodone 2022- No 1{tbl} Take 1 Tab Univers -acetaminop 8- 04-18 by mouth ity of hen (NORCO 00:00: 00:00 every 4 [place] as 5) 5-325 mg 00 :00 (four) Medica l tablet hours as Branch needed for Pain. naproxen 2022- No 500mg Take 1 Tab U nivers (NAPROSYN) 8- 04-18 by mouth 2 it y of 500 mg 00:00: 00:00 (two) [place] tablet 00 :00 times Medical daily with Branch meals. cyclobenzap 2022- No 10mg Take 1 Tab Univers rine 8- 04-18 by mouth 3 ity of (FLEXERIL) 00:00: 00:00 (three) [place] 10 mg 00 :00 times Medical tablet daily. Branch Verapamil Verapamil No Verapamil HCl ER 120 HCl ER 120 HCl ER 120 MG MG MG Omeprazole Omeprazole No QD Omeprazole 40 MG 40 MG 40 MG Xanax 1 MG Xanax 1 MG No 1{table BID Xanax 1 MG t} DULoxetine DULoxetine No 1{capsu QD DULoxetine HCl [...] Status Comments Sour e Immunization Name Name [facility] 2014-09-20 Completed University of 00:00:00 [facility] TDAP 2014-09-20 Completed University of 00:00:00 [facility] TDAP 2014-09-20 Completed University of 00:00:00 [facility] TDAP 2014-09-20 Completed University of 00:00:00 [facility] TDAP 2014-09-20 Completed University of 00:00:00 [facility] TDAP 2014-09-20 Completed University of 00:00:00 [facility] TDAP 2014-09-20 Completed University of 00:00:00 [facility] TDAP 2014-09-20 Completed University of 00:00:00 [facility] TDAP 2014-09-20 Completed University of 00:00:00 [facility] TDAP 2014-09-20 Completed University of 00:00:00 [facility] TDAP 2014-09-20 Completed [facility] 00:00:00 [facility] [facility] TDAP 2014-09-20 Completed [facility] of 00:00:00 [facility] TDAP 2014-09-20 Completed [facility] 00:00:00 [facility] TDAP 2014-09-20 Completed [facility] 00:00:00 [facility] TDAP 2014-09-20 Completed [facility] 00:00:00 [facility] TDAP 2014-09-20 Completed [facility] 00:00:00 [facility] TDAP 2014-09-20 Completed [facility] 00:00:00 [facility] Vital Signs Vital Name Observation Time Observation Value Comments Source Systolic blood 2022-09-07 14:43:00 111 mm[Hg] Univer sity of pressure [facility] Diastolic blood 2022-09-07 14:43:00 69 mm[Hg] Unive rsity of pressure [facility] Heart rate 2022-09-07 14:43:00 89 /min [facility] Body height 2022-09-07 14:43:00 165.1 cm [facility] Body weight 2022-09-07 14:43:00 49.941 kg [facility] BMI 2022-09-07 14:43:00 18.32 kg/m2 [facility] Oxygen saturation in 2022-09-07 14:43:00 100 /min University of Arterial blood by [facility] cody Pulse oximetry Branch Systolic blood 2022-09-02 13:43:00 126 mm[Hg] Univer sity of pressure [facility] Diastolic blood 2022-09-02 13:43:00 78 mm[Hg] Unive rsity of pressure [facility] Heart rate 2022-09-02 13:43:00 81 /min [facility] Body temperature 2022-09-02 13:43:00 36.89 Evelia [facility] Respiratory rate 2022-09-02 13:43:00 16 /min Univ [facility] Body height 2022-09-02 13:43:00 165.1 cm [facility] Body weight 2022-09-02 13:43:00 49.805 kg [facility] BMI 2022-09-02 13:43:00 18.27 kg/m2 [facility] Oxygen saturation in 2022-09-02 13:43:00 100 /min University of Arterial blood by [facility] Pulse oximetry Branch Systolic blood 2022-07-29 20:23:00 121 mm[Hg] Univer sity of pressure [facility] Diastolic blood 2022-07-29 20:23:00 81 mm[Hg] Unive rsity of [facility] Heart rate 2022-07-29 20:23:00 68 /min [facility] Respiratory rate 2022-07-29 20:23:00 19 /min Univ [facility] Body height 2022-07-29 20:23:00 165.1 cm [facility] Body weight 2022-07-29 20:23:00 49.896 kg [facility] BMI 2022-07-29 20:23:00 18.30 kg/m2 [facility] Oxygen saturation in 2022-07-29 20:23:00 100 /min University of Arterial blood by [facility] Pulse oximetry Branch Systolic blood 2022-07-29 14:11:00 116 mm[Hg] Univer sity of pressure [facility] Diastolic blood 2022-07-29 14:11:00 73 mm[Hg] Unive rsity of pressure [facility] Heart rate 2022-07-29 14:11:00 84 /min Universi ty [facility] Body temperature 2022-07-29 14:11:00 36.72 Evelia [facility] ersity of [facility] Respiratory rate 2022-07-29 14:11:00 16 /min [facility] height 2022-07-29 14:11:00 165.1 cm Universi ty [facility] Body weight 2022-07-29 14:11:00 49.986 [address]i ty [facility] BMI 2022-07-29 14:11:00 18.34 kg/m2 Universi [facility] Oxygen saturation in 2022-07-29 14:11:00 100 /min [facility] Arterial blood by [facility] Pulse oximetry Branch oximetry 2022-05-11 16:00:00 97 % [facility] respiratory rate 2022-05-11 16:00:00 16 /min Comm on [facility] blood pressure 2022-05-11 16:00:00 124 mm[Hg] [facility] - systolic [facility] blood pressure 2022-05-11 16:00:00 84 mm[Hg] Common [facility] - diastolic [facility] height 2022-05-11 16:00:00 64 [in_i] [facility] weight 2022-05-11 16:00:00 110.8 [lb_av] [facility] temperature 2022-05-11 16:00:00 97.4 [degF] [facility] bmi 2022-05-11 16:00:00 19.02 kg/m2 [facility] weight 2021-12-09 08:20:00 118.4 [lb_av] [facility] temperature 2021-12-09 08:20:00 97.3 [degF] Common [facility] bmi 2021-12-09 08:20:00 20.32 kg/m2 [facility] oximetry 2021-12-09 08:20:00 100 % [facility] respiratory rate 2021-12-09 08:20:00 16 /min Comm on [facility] blood pressure 2021-12-09 08:20:00 107 mm[Hg] [facility] - systolic [facility] blood pressure 2021-12-09 08:20:00 67 mm[Hg] [facility] - diastolic [facility] height 2021-12-09 08:20:00 64 [in_i] [facility] height 2021-09-08 11:20:00 64 [in_i] [facility] weight 2021-09-08 11:20:00 118 [lb_av] [facility] temperature 2021-09-08 11:20:00 97.2 [degF] [facility] bmi 2021-09-08 11:20:00 20.25 kg/m2 [facility] oximetry 2021-09-08 11:20:00 99 % [facility] respiratory rate 2021-09-08 11:20:00 17 /min Comm on [facility] blood pressure 2021-09-08 11:20:00 112 mm[Hg] Common [facility] - systolic [facility] blood pressure 2021-09-08 11:20:00 80 mm[Hg] [facility] - diastolic [facility] height 2021-03-31 09:00:00 64 [in_i] [facility] weight 2021-03-31 09:00:00 111 [lb_av] [facility] temperature 2021-03-31 09:00:00 98.8 [degF] [facility] bmi 2021-03-31 09:00:00 19.05 kg/m2 Common [facility] oximetry 2021-03-31 09:00:00 100 % Common [facility] respiratory rate 2021-03-31 09:00:00 18 /min Comm on [facility] blood pressure 2021-03-31 09:00:00 116 mm[Hg] [facility] - systolic [facility] blood pressure 2021-03-31 09:00:00 64 mm[Hg] [facility] - diastolic [facility] Body weight 2020-04-26 23:36:00 45.36 kg [facility] Systolic blood 2020-04-26 23:34:00 110 mm[Hg] Univer sity of [facility] Diastolic blood 2020-04-26 23:34:00 78 mm[Hg] Unive rsity of [facility] Heart rate 2020-04-26 23:34:00 89 /min [facility] Body temperature 2020-04-26 23:34:00 37 Evelia [facility] Respiratory rate 2020-04-26 23:34:00 18 /min [facility] Oxygen saturation in 2020-04-26 23:34:00 100 /min [facility] blood by [facility] Pulse oximetry Branch Procedures Procedure Date / Time Performing Clinician Source Performed INSURANCE CORRESPONDENCE 2022-09-30 05:01:00 Doctor Rivera, [facility] Name Medical [place] EXTERNAL PROVIDER - ADC 2022-08-26 05:01:00 Doctor Miguel, [facility] CARDIOLOGY [facility] HB ECG ROUTINE & RHYTHM 2022-07-29 20:28:03 Aaron Abreu [facility] REFERRAL- 2022-07-27 06:01:00 Doctor Miguel, [facility] REQUEST/RESPONSE [place] [facility] [place] POCT TEST 2020-04-26 23:50:00 Ambrose Mackenzie [facility] URINALYSIS 2020-04-26 23:49:00 Ambrose Mackenzie [facility] NOTICE OF PRIVACY 2020-04-26 23:24:44 Doctor Unassigned, [facility] PRACTICES [facility] CONSENT/REFUSAL FOR 2020-04-26 23:24:28 Doctor Unassigned, [facility] DIAGNOSIS AND TREATMENT [facility] Encounters Start End Encounter Admission Attending Care Care Encounter Source Date/Time Date/Time Type Type Clinicians Facility Department ID 2022-06-18 Outpatient Richardson, STLMLC STLMLC [id number] Common 08:45:00 Dina [id number] [facility] 2022-05-07 Outpatient Richardson, STLMLC STLMLC [id number] Common 11:31:00 Dina [id number] [facility] 2022-02-15 Outpatient Richardson, STLMLC STLMLC [id number] Common 08:14:00 Dina 02949 [facility] 2021-12-07 Outpatient Richardson, STLMLC STLMLC [id number] Common 09:30:00 Dina 25884 [facility] 2021-06-17 Outpatient Richardson, STLMLC STLMLC [id number] Common 14:16:31 Dina 02745 [facility] 2021-06-17 Outpatient Richardson, STLMLC STLMLC [id number] Common 14:10:32 Dina 10452 [facility] 2021-06-17 Outpatient STLMLC STLMLC [id number] Common 14:10:07 [id number] [facility] 2021-06-17 Outpatient Govea, STLMLC STLMLC [id number] Common 14:07:59 Mirian [id number] [facility] 2021-06-17 Outpatient STLMLC STLMLC [id number] Common 14:03:32 [id number] [facility] 2021-06-17 Outpatient STLMLC STLMLC [id number] Common 14:02:47 [id number] [facility] 2021-06-17 Outpatient STLMLC STLMLC [id number] Common 14:02:10 [id number] [facility] 2021-06-17 Outpatient Veselka, STLMLC STLMLC [id number] Common 13:50:52 Bishnu [id number] [facility] 2023-02-09 2023-02-09 Outpatient R LOISTHE [facility] [id number] Univers 10:30:00 10:30:[address] [facility] 2022-10-28 2022-10-28 [facility] [id number] Univers 00:00:00 00:00:00 Sendil Nettie VAZQUEZ [id number] [id number] [phone] Ak dical NAL [address] [place] [address] 2022-09-30 2022-09-30 Orders Doctor MAC [id number] Univers 00:00:00 00:00:00 Only Unassigned, PRAKASH [id number] ity of [place] [facility] [id number] Jeffry as [phone] [address] 2022-09-22 2022-09-22 Outpatient R LOISTHE [facility] [id number] Univers 07:53:48 23:59:[address] [facility] 2022-09-08 2022-09-08 [facility]phone [facility] [id number] Univers 00:00:00 00:00:00 Sendil Nettie VAZQUEZ [id number] [id number] [phone] Ak dical NAL 9 [facility] 2022-09-07 2022-09-07 Outpatient R LOISTHE [facility] [id number] Univers 08:39:05 23:59:[address] [facility] 2022-09-07 2022-09-07 Office [facility] [id number] Univers 10:00:00 10:05:08 Visit Sendil Nettie VAZQUEZ [id number] [id number] [phone] Ak dical NAL 9 [facility] 2022-09-022022-09-02 Outpatient R KAREN [facility] [id number] Univers 08:45:00 09:00:46 KAREN [facility] 2022-09-02 2022-09-02 Office [facility] [id number] Univers 08:45:00 09:00:46 Visit Marcelina VAZQUEZ [id number] [place] [phone] Ak dical NAL 188 [facility] 2022-08-30 2022-08-30 Outpatient R KAREN [facility] [id number] Univers 13:00:00 13:00:00 KAREN [facility] 2022-08-26 2022-08-26 Orders Doctor WATTS [id number] Univers 00:00:00 00:00:00 Only Unassigned, PRAKASH [id number] ity of [place] [facility] [id number] [place] as [phone] [address] 2022-07-29 2022-07-29 Office [facility] [id number] Univers 14:00:00 15:27:14 Visit Aaron JimenezBambiConstanceBambi GEORGE [id number] [id number] [id number] Ak dical NAL 059 [facility] 2022-07-29 2022-07-29 Outpatient R KAREN [facility] [id number] Univers 08:00:00 08:42:20 KAREN [facility] 2022-07-29 2022-07-29 Office [facility] [id number] Univers 08:00:00 08:42:20 Visit Marcelina VAZQUEZ [id number] [id number] [id number] Ak dical NAL 188 [facility] 2022-07-27 2022-07-27 Orders Doctor MAC [id number] Univers 00:00:00 00:00:00 Only Unassigned, PRAKASH [id number] ity of [facility] [id number] [place] [phone] [place] [address] Branch 2022-05-11 2022-05-11 OFFICE STLMLC STLMLC [id number] Co mmon 00:00:00 00:00:00 VISIT Spirit ESTAB PT - CHI LEVEL 4 [facility] 2021-12-09 2021-12-09 OFFICE STLMLC STLMLC [id number] Co mmon 00:00:00 00:00:00 VISIT Spirit ESTAB PT - CHI LEVEL 4 [facility] 2021-09-08 2021-09-08 OFFICE STLMLC STLMLC [id number] Co mmon 00:00:00 00:00:00 VISIT Spirit ESTAB PT - CHI LEVEL 4 [facility] 2021-08-04 2021-08-04 (TEL) STLMLC STLMLC [id number] Co mmon 00:00:00 00:00:00 [facility] 2021-07-03 2021-07-03 (TEL) STLMLC STLMLC [id number] Co mmon 00:00:00 00:00:00 [facility] 2021-07-03 2021-07-03 Tea Webb [facility] [id number] Univers 00:00:00 00:00:00 [facility] [id number] [facility] [id number] Jeffry as PROFESSIO [phone] [facility] 044 Branch OFFICE BUILDING ONE 2021-04-15 2021-04-15 (TEL) STLMLC STLMLC [id number] Co mmon 00:00:00 00:00:00 [facility] 2021-04-09 2021-04-09 (TEL) STLMLC STLMLC [id number] Co mmon 00:00:00 00:00:00 [facility] 2021-03-31 2021-03-31 OFFICE STLMLC STLMLC [id number] Co mmon 00:00:00 00:00:00 VISIT NEW Spir it PT LEVEL 4 - [facility] 2021-01-21 2021-01-21 [facility] [id number] Univers 00:00:00 00:00:00 [facility] [id number] it y of [place] Vazquez [id number] Jeffry as Profess [phone] Ak dical nal 044 Branch Office [facility] One 2021-01-16 2021-01-16 Outpatient R JESSICA [facility] [id number] Univers 14:00:00 14:00:[address] [facility] 2020-04-26 2020-04-26 Emergency [facility] [id number] Univers 17:37:00 19:10:00 Ambrose Eliud Vazquez [id number] i ty of [id number] [facility] [phone] [place] [id number] [place] 2020-04-26 2020-04-26 Emergency X AVRIL [facility] ERT [id number] Univers 17:24:00 17:24:[address] [facility] 2019-12-20 2019-12-20 Outpatient [facility] [id number] Univers 08:00:00 08:00:00 BISHNU [facility] Results Test Description Test Time Test Comments Results Result Comments Source URINALYSIS 2020-04-27 00:17:00 Test Item Value Reference Range Interpretation Comme nts APPEARANCE (test code = Clear Clear 8659562973) COLOR (test code = 0525511592) Yellow Yellow PH (test code = 0550535441) 4.8-8.0 SP GRAVITY (test code = 1.003-1.030 0768621134) GLU U QUAL (test code = Normal Normal 7447639832) BLOOD (test code = 2222452699) Negative Negative KETONES (test code = 0628829219) Negative Negative PROTEIN (test code = 2887-8) Negative Negative UROBILIN (test code = 7401002604) Normal Normal BILIRUBIN (test code = Negative Negative 2033299148) NITRITE (test code = 0419095457) Negative Negative LEUK JOHANA (test code = Negative Negative 9953810810) RBC/HPF (test code = 1568515568) See_Comment [Automated message] The system which ge nerated this result transmit jose angel reference range: 0 - 3 HP F. The reference range was not used to interpret th is result as normal/abnormal . WBC/HPF (test code = 1267056233) <1 See_Comment [Automated message] The system which ge nerated this result transmit jose angel reference range: 0 - 5 HP F. The reference range was not used to interpret th is result as normal/abnormal . BACTERIA (test code = 3874076718) Few Negative A SQ EPITH (test code = 6616154915) <1 HPF Lab Interpretation (test code = Abnormal 94620-4) [id number]50:00 Test Item Value Reference Range Interpretation Comments POCT PREG (test code = 1605) negative On board controls acceptable with present C Line (test code = 3574) POCT PREG LOT # (test code = 3575) [id number] POCT PREG TEST DATE (test code = 3576) Lab Interpretation (test code = Normal 00950-8) [facility]
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
[2022-11-18] MEDS ORDERED: CEFTRIAXONE 500 MG/VIAL ONE (01:52)
[2022-11-18] MEDS ORDERED: metroNIDAZOLE 500 MG TABLET ONE (01:52)
[2022-11-18] MEDS ORDERED: ONDANSETRON 4 MG (ODT) TAB ONE (01:53)
[2022-11-18] MEDS ORDERED: AZITHROMYCIN 250 MG TAB ONE (01:53)
[2022-11-18] MEDS ORDERED: LIDOCAINE 1% MPF 2 ML AMPULE ONE (01:53)
[2022-11-18 02:18] VITALS: BP 136/107; TEMP 98.2; O2SAT 100
== END 2022-11-18 02:12 | disposition home or self-care (01) ==
LOC: ER 21:34
DX: T76.21XA Adult sexual abuse, suspected, initial encounter (principal); Z11.3 Encounter for screening for infections with a predominantly sexual mode of transmission; Z88.0 Allergy status to penicillin; Z88.1 Allergy status to other antibiotic agents; Z88.2 Allergy status to sulfonamides; Z91.040 Latex allergy status; Z91.048 Other nonmedicinal substance allergy status
CPT/HCPCS: 96372; 99284; Q0162

== ENCOUNTER → 2023-07-18 | Emergency (ER) | payer OTHER, SELFPAY ==
[~2023-07-18] MED LIST: LORazepam 2 MG/ML VIAL ONE; POTASSIUM 25 MEQ EFFERV TAB ONE
--- OUTSIDE RECORDS SUMMARY | 2023-07-18 23:09 | XMS REPORT | Continuity of Care Document ---
Author Name Unknown Address [address] [facility] [address] [place] [address] [facility] thconnect Address [address] 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 Attending Clinician + [phone] [email or web address]_Cynthia_S Attending Clinician UnavailVIVIAN Martines Attending Clinician Unav ailVIVIAN Gibbons Attending Clinician Unav ailable Doctor Unassigned, [place] Attending Clinician U DEEPTI Martinez Attending Clinician Unavailable DEEPTI JONES Attending Clinician Unavailable Bishnu Webb MD Attending Clinician + [phone] HELLEN LOPEZ Attending Clinician Unavailable Ambrose Reyes Attending Clinician [phone] AMBROSE MACKENZIE Attending Clinician Unavailable BISHNU WEBB Attending Clinician Luis Angel driscoll [email or web address]_Cynthia_S Admitting Clinician AARON Armando Admitting Clinician Guevaraa ble Payers Payer Name Policy Type Policy Number Effective Date Expirati on Date Source [facility] [id number] 2022 00:00:00 [facility] 2 [id number] 2022 00:00:00 [facility] C[id number] [id number] [facility] [id number] [facility] Problems Condition Name Condition Details Condition Category Status Onset Date Resolution Date Last Treatment Date Treating Clinician Comments Source Low back pain of over 3 months duration Low back pain of over 3 months duration Disease Active 2017-05 00:00: 00 [facility] Neck pain of over 3 months duration Neck pain of over 3 months duration Disease Active 2017-05 00:00: 00 [facility] [id number] Calculus of gallbladde r without cholecysti tis without obstructio n Problem [facility] [id number] Lumbago with sciatica, right side Problem [facility] [id number] Palpitatio ns Problem [facility] Anxiety Anxiety Problem [facility] Allergic rhinitis Allergic rhinitis Problem [facility] [id number] Encounter for gynecologi cody examinatio n (general) (routine) without abnormal findings Problem [facility] [id number] Other chronic pain Problem [facility] Depression Depression Problem [facility] [id number] Night sweats Problem [facility] [id number] Neurologic cardiac syncope Problem [facility] [id number] History of ulcerative colitis Problem [facility] [id number] Lesion of lip Problem [facility] [id number] Dorsalgia, unspecifie d Problem [facility] [id number] Constipati on, unspecifie d constipati on type Problem [facility] Allergies, Adverse Reactions, Alerts Allergy Name Allergy Type Status Severity Reaction(s) Onset Date Inactive Date Treating Clinician Comments Source LATEX DRUG INGREDI Active Rash 2019-05 00:00: 00 [facility] Penicill in Propensi ty to adverse reaction s Active Unknown - See comments 2017-05 00:00: 00 [facility] LATEX DRUG INGREDI Active Unknown-Cmnt 2017-05 00:00: 00 [facility] PENICILL IN DRUG INGREDI Active Unknown-Cmnt 2017-05 00:00: 00 [facility] SULFA (SULFONA MIDE ANTIBIOT ICS) Drug Class Active Unknown-Cmnt 2017-05 00:00: 00 [facility] Penicill ins Propensi ty to adverse reaction s Active Hives 01-17 00:00: 00 [facility] Sulfa (Sulfona mide Antibiot ics) Propensi ty to adverse reaction s Active Unknown - See comments 01-17 00:00: 00 [facility] Penicill ins Propensi ty to adverse reaction s Active Hives 01-17 00:00: 00 [facility] Sulfa (Sulfona mide Antibiot ics) Propensi ty to adverse reaction s Active Unknown - See comments 01-17 00:00: 00 [facility] PENICILL INS Drug Class Active Hives 01-17 00:00: 00 [facility] SULFA (SULFONA MIDE ANTIBIOT ICS) Drug Class Active Unknown-Cmnt 01-17 00:00: 00 [facility] Latex Latex Active itching [facility] Penicill in Penicill in Active bumps [facility] Social History Social Habit Start Date Stop Date Quantity Comments Source History of Tobacco Use Current Smoker [facility] 2023-02-09 00:00:00 2023-02-09 00:00:00 Current non-drinker of alcohol (finding) [facility] Exposure to SARS-CoV-2 (event) 2022-09-12 00:00:00 2022-09-22 07:53:00 Not sure [facility] Tobacco use and exposure 2022-07-29 00:00:00 2022-07-29 00:00:00 Smokeless tobacco non-user [facility] History of Social function 2022-07-29 00:00:00 2022-07-29 00:00:00 [facility] Smoking Status Start Date Stop Date Source Unknown if ever smoked [facility] Current Smoker 2023-03-29 00:00:00 [facility] Never smoked tobacco [facility] Medications Ordered Medication Name Filled Medication Name Start Date Stop Date Current Medication? Ordering Clinician Indication Dosage Frequency Signature (SIG) Comments Components Source verapamiL 240 mg ER tablet 2022-05 16:34: 12 04-25 00:00 :00 No 240mg Take 1 tablet by mouth in the morning. [facility] verapamiL 240 mg ER tablet 2022-05 00:00: 00 Yes TAKE 1 TABLET BY MOUTH IN THE MORNING FOR 30 DAYS [facility] verapamiL 240 mg ER tablet 02-09 10:43: 22 Yes 240mg Take 1 tablet by mouth in the morning. [facility] verapamiL 240 mg ER tablet 02-09 10:43: 22 Yes 240mg Take 1 tablet by mouth in the morning. [facility] CYCLOBENZAP RINE HCL (FLEXERIL ORAL) 09-07 10:01: 48 09-07 00:00 :00 No Take by mouth. [facility] GABAPENTIN, BULK, MISC 09-07 10:01: 48 09-07 00:00 :00 No [facility] NAPROXEN/ES OMEPRAZOLE MAG (VIMOVO ORAL) 09-07 10:01: 48 09-07 00:00 :00 No Take by mouth. [facility] CYCLOBENZAP RINE HCL (FLEXERIL ORAL) 2022-0 18 10:01: 48 09-07 00:00 :00 No Take by mouth. [facility] GABAPENTIN, BULK, MISC 2022-0 18 10:01: 48 09-07 00:00 :00 No [facility] NAPROXEN/ES OMEPRAZOLE MAG (VIMOVO ORAL) 0 18 10:01: 48 09-07 00:00 :00 No Take by mouth. [facility] BABY ASPIRIN ORAL 3-0 -18 10:00: 08 Yes Take by mouth. [facility] BABY ASPIRIN ORAL 2022-0 -18 10:00: 08 Yes Take by mouth. [facility] BABY ASPIRIN ORAL 3-0 18 10:00: 08 Yes Take by mouth. [facility] BABY ASPIRIN ORAL 2022-0 18 10:00: 08 Yes Take by mouth. [facility] BABY ASPIRIN ORAL 2022-0 18 10:00: 08 Yes Take by mouth. [facility] BABY ASPIRIN ORAL 3-0 18 10:00: 08 Yes Take by mouth. [facility] BABY ASPIRIN ORAL 3-0 -18 10:00: 08 Yes Take by mouth. [facility] BABY ASPIRIN ORAL 3-0 -18 10:00: 08 Yes Take by mouth. [facility] BABY ASPIRIN ORAL 3-0 18 10:00: 08 Yes Take by mouth. [facility] verapamiL 240 mg ER tablet 2022-0 18 00:00: 00 10-08 04:59 :00 No [id number] 240mg Take 1 tablet by mouth in the morning for 30 days. [facility] verapamiL 240 mg ER tablet 3-0 18 00:00: 00 10-08 04:59 :00 No [id number] 240mg Take 1 tablet by mouth in the morning for 30 days. [facility] verapamiL 240 mg ER tablet 2022-0 18 00:00: 00 10-08 04:59 :00 No [id number] 240mg Take 1 tablet by mouth in the morning for 30 days. [facility] BABY ASPIRIN ORAL 3-0 4-13 08:42: 14 Yes Take by mouth. [facility] BABY ASPIRIN ORAL 3-0 4-13 08:42: 14 Yes Take by mouth. [facility] verapamiL 240 mg ER tablet 3-0 3-30 00:00: 00 09-07 00:00 :00 No 240mg Take 1 tablet by mouth in the morning. [facility] verapamiL 240 mg ER tablet 3-0 3-30 00:00: 00 09-07 00:00 :00 No 240mg Take 1 tablet by mouth in the morning. [facility] omeprazole 40 mg capsule 3-0 3-10 00:00: 00 Yes [id number] 40mg Take 1 capsule by mouth in the morning. [facility] omeprazole 40 mg capsule 3-0 3-10 00:00: 00 Yes [id number] 40mg Take 1 capsule by mouth in the morning. [facility] omeprazole 40 mg capsule 3-0 3-10 00:00: 00 Yes [id number] 40mg Take 1 capsule by mouth in the morning. [facility] omeprazole 40 mg capsule 3-0 3-10 00:00: 00 Yes [id number] 40mg Take 1 capsule by mouth in the morning. [facility] omeprazole 40 mg capsule 3-0 3-10 00:00: 00 Yes [id number] 40mg Take 1 capsule by mouth in the morning. [facility] omeprazole 40 mg capsule 3-0 3-10 00:00: 00 Yes [id number] 40mg Take 1 capsule by mouth in the morning. [facility] omeprazole 40 mg capsule 3-0 3-10 00:00: 00 Yes [id number] 40mg Take 1 capsule by mouth in the morning. [facility] omeprazole 40 mg capsule 3-0 3-10 00:00: 00 Yes [id number] 40mg Take 1 capsule by mouth in the morning. [facility] BABY ASPIRIN ORAL 3-0 3-09 15:19: 34 Yes Take by mouth. [facility] 0 3 15:19: 34 Yes Take by mouth. [facility] CYCLOBENZAP RINE HCL (FLEXERIL ORAL) 0 3 08:13: 30 Yes Take by mouth. [facility] GABAPENTIN, BULK, MISC 0 309 08:13: 30 Yes [facility] NAPROXEN/ES OMEPRAZOLE MAG (VIMOVO ORAL) 0 3 08:13: 30 Yes Take by mouth. [facility] CYCLOBENZAP RINE HCL (FLEXERIL ORAL) 0 3 08:13: 30 Yes Take by mouth. [facility] GABAPENTIN, BULK, MISC 0 3 08:13: 30 Yes [facility] NAPROXEN/ES OMEPRAZOLE MAG (VIMOVO ORAL) 0 3 08:13: 30 Yes Take by mouth. [facility] CYCLOBENZAP RINE HCL (FLEXERIL ORAL) 0 3 08:13: 30 Yes Take by mouth. [facility] GABAPENTIN, BULK, MISC 3 08:13: 30 Yes [facility] NAPROXEN/ES OMEPRAZOLE MAG (VIMOVO ORAL) 0 3 08:13: 30 Yes Take by mouth. [facility] CYCLOBENZAP RINE HCL (FLEXERIL ORAL) 0 3 08:13: 30 Yes Take by mouth. [facility] GABAPENTIN, BULK, MISC 0 3 08:13: 30 Yes [facility] NAPROXEN/ES OMEPRAZOLE MAG (VIMOVO ORAL) 0 3 08:13: 30 Yes Take by mouth. [facility] CYCLOBENZAP RINE HCL (FLEXERIL ORAL) 0 3 08:13: 30 Yes Take by mouth. [facility] GABAPENTIN, BULK, MISC 0 3 08:13: 30 Yes [facility] NAPROXEN/ES OMEPRAZOLE MAG (VIMOVO ORAL) 0 3 08:13: 30 Yes Take by mouth. [facility] CYCLOBENZAP RINE HCL (FLEXERIL ORAL) 0 3 08:13: 30 Yes Take by mouth. [facility] GABAPENTIN, BULK, MISC 0 3 08:13: 30 Yes [facility] NAPROXEN/ES OMEPRAZOLE MAG (VIMOVO ORAL) 0 309 08:13: 30 Yes Take by mouth. [facility] CYCLOBENZAP RINE HCL (FLEXERIL ORAL) 0 3 08:13: 30 Yes Take by mouth. [facility] GABAPENTIN, BULK, MISC 0 3 08:13: 30 Yes [facility] NAPROXEN/ES OMEPRAZOLE MAG (VIMOVO ORAL) 0 3 08:13: 30 Yes Take by mouth. [facility] BABY ASPIRIN ORAL 0 3 08:13: 02 Yes Take by mouth. [facility] BABY ASPIRIN ORAL 2022-0 3 08:13: 02 Yes Take by mouth. [facility] BABY ASPIRIN ORAL 2022-0 3 08:13: 02 Yes Take by mouth. [facility] sucralfate 1 gram tablet 06-17 00:00: 00 Yes [id number] 1g Take 1 tablet by mouth 4 (four) times daily. [facility] sucralfate 1 gram tablet 0 06-17 00:00: 00 Yes [id number] 1g Take 1 tablet by mouth 4 (four) times daily. [facility] sucralfate 1 gram tablet 0 06-17 00:00: 00 Yes [id number] 1g Take 1 tablet by mouth 4 (four) times daily. [facility] sucralfate 1 gram tablet 0 06-17 00:00: 00 Yes [id number] 1g Take 1 tablet by mouth 4 (four) times daily. [facility] sucralfate 1 gram tablet 06-17 00:00: 00 Yes [id number] 1g Take 1 tablet by mouth 4 (four) times daily. [facility] tablet 06-17 00:00: 00 Yes [id number] 1g Take 1 tablet by mouth 4 (four) times daily. [facility] sucralfate 1 gram tablet 0 06-17 00:00: 00 Yes [id number] 1g Take 1 tablet by mouth 4 (four) times daily. [facility] sucralfate 1 gram tablet 06-17 00:00: 00 Yes [id number] 1g Take 1 tablet by mouth 4 (four) times daily. [facility] BABY ASPIRIN ORAL 0 07-28 20:29: 42 Yes Take by mouth. [facility] BABY ASPIRIN ORAL 0 07-28 20:29: 42 Yes Take by mouth. [facility] BABY ASPIRIN ORAL 0 07-28 14:29: 42 Yes Take by mouth. [facility] BABY ASPIRIN ORAL 0 07-28 14:29: 42 Yes Take by mouth. [facility] ALPRAZolam 1 mg tablet 07-21 00:00: 00 Yes [id number] 1mg Take 1 tablet by mouth 2 (two) times daily. [facility] verapamil SR 120 mg ER tablet 07-21 00:00: 00 Yes [id number] 120mg Take 1 tablet by mouth 2 (two) times daily. [facility] ALPRAZolam 1 mg tablet 07-21 00:00: 00 Yes [id number] 1mg Take 1 tablet by mouth 2 (two) times daily. [facility] verapamil SR 120 mg ER tablet 07-21 00:00: 00 Yes [id number] 120mg Take 1 tablet by mouth 2 (two) times daily. [facility] ALPRAZolam 1 mg tablet 07-21 00:00: 00 Yes [id number] 1mg Take 1 tablet by mouth 2 (two) times daily. [facility] verapamil SR 120 mg ER tablet 07-21 00:00: 00 Yes [id number] 120mg Take 1 tablet by mouth 2 (two) times daily. [facility] AL[facility] mg tablet 07-21 00:00: 00 Yes [id number] 1mg Take 1 tablet by mouth 2 (two) times daily. [facility] ver[facility] mg ER tablet 07-21 00:00: 00 Yes [id number] 120mg Take 1 tablet by mouth 2 (two) times daily. [facility] ALPRAZolam 1 mg tablet 07-21 00:00: 00 Yes [id number] 1mg Take 1 tablet by mouth 2 (two) times daily. [facility] verapamil SR 120 mg ER tablet 07-21 00:00: 00 Yes [id number] 120mg Take 1 tablet by mouth 2 (two) times daily. [facility] ALPRAZolam 1 mg tablet 07-21 00:00: 00 Yes [id number] 1mg Take 1 tablet by mouth 2 (two) times daily. [facility] verapamil SR 120 mg ER tablet 07-21 00:00: 00 Yes [id number] 120mg Take 1 tablet by mouth 2 (two) times daily. [facility] ALPRAZolam 1 mg tablet 07-21 00:00: 00 Yes [id number] 1mg Take 1 tablet by mouth 2 (two) times daily. [facility] verapamil SR 120 mg ER tablet 07-21 00:00: 00 Yes [id number] 120mg Take 1 tablet by mouth 2 (two) times daily. [facility] ALPRAZolam 1 mg tablet 07-21 00:00: 00 Yes [id number] 1mg Take 1 tablet by mouth 2 (two) times daily. [facility] verapamil SR 120 mg ER tablet 07-21 00:00: 00 Yes [id number] 120mg Take 1 tablet by mouth 2 (two) times daily. [facility] ALPRAZolam 1 mg tablet 07-21 00:00: 00 Yes [id number] 1mg Take 1 tablet by mouth 2 (two) times daily. [facility] verapamil SR 120 mg ER tablet 3- 00:00: 00 Yes [id number] 120mg Take 1 tablet by mouth 2 (two) times daily. [facility] ALPRAZolam 1 mg tablet 3- 00:00: 00 Yes [id number] 1mg Take 1 tablet by mouth 2 (two) times daily. [facility] verapamil SR 120 mg ER tablet 3- 00:00: 00 Yes [id number] 120mg Take 1 tablet by mouth 2 (two) times daily. [facility] ALPRAZolam 1 mg tablet 3 00:00: 00 Yes [id number] 1mg Take 1 tablet by mouth 2 (two) times daily. [facility] verapamil SR 120 mg ER tablet 07-21 00:00: 00 Yes [id number] 120mg Take 1 tablet by mouth 2 (two) times daily. [facility] ALPRAZolam 1 mg tablet 3 00:00: 00 09-07 00:00 :00 No [id number] 1mg Take 1 tablet by mouth 2 (two) times daily. [facility] verapamil SR 120 mg ER tablet 3 00:00: 00 09-07 00:00 :00 No [id number] 120mg Take 1 tablet by mouth 2 (two) times daily. [facility] ALPRAZolam 1 mg tablet 3- 00:00: 00 09-07 00:00 :00 No [id number] 1mg Take 1 tablet by mouth 2 (two) times daily. [facility] verapamil SR 120 mg ER tablet 3- 00:00: 00 09-07 00:00 :00 No [id number] 120mg Take 1 tablet by mouth 2 (two) times daily. [facility] DULoxetine 60 mg capsule 1-15 00:00: 00 Yes [id number] 60mg Take 1 capsule by mouth daily. [facility] DULoxetine 60 mg capsule 0 15 00:00: 00 Yes [id number] 60mg Take 1 capsule by mouth daily. [facility] DULoxetine 60 mg capsule 0 15 00:00: 00 Yes [id number] 60mg Take 1 capsule by mouth daily. [facility] DULoxetine 60 mg capsule 0 15 00:00: 00 Yes [id number] 60mg Take 1 capsule by mouth daily. [facility] DULoxetine 60 mg capsule 0 -15 00:00: 00 Yes [id number] 60mg Take 1 capsule by mouth daily. [facility] DULoxetine 60 mg capsule 0 15 00:00: 00 Yes [id number] 60mg Take 1 capsule by mouth daily. [facility] DULoxetine 60 mg capsule 0 15 00:00: 00 Yes [id number] 60mg Take 1 capsule by mouth daily. [facility] DULoxetine 60 mg capsule 0 15 00:00: 00 Yes [id number] 60mg Take 1 capsule by mouth daily. [facility] DULoxetine 60 mg capsule 0 15 00:00: 00 Yes [id number] 60mg Take 1 capsule by mouth daily. [facility] DULoxetine 60 mg capsule 0 15 00:00: 00 Yes [id number] 60mg Take 1 capsule by mouth daily. [facility] DULoxetine 60 mg capsule 0 15 00:00: 00 Yes [id number] 60mg Take 1 capsule by mouth daily. [facility] DULoxetine 60 mg capsule 0 15 00:00: 00 Yes [id number] 60mg Take 1 capsule by mouth daily. [facility] DULoxetine 60 mg capsule 0 15 00:00: 00 Yes [id number] 60mg Take 1 capsule by mouth daily. [facility] DULoxetine 60 mg capsule 0 15 00:00: 00 Yes [id number] 60mg Take 1 capsule by mouth daily. [facility] DULoxetine 60 mg capsule 2020-0 15 00:00: 00 Yes [id number] 60mg Take 1 capsule by mouth daily. [facility] DULoxetine 60 mg capsule 06-06 00:00: 00 Yes [id number] 60mg Take 1 capsule by mouth daily. [facility] DULoxetine 60 mg capsule 06-06 00:00: 00 Yes [id number] 60mg Take 1 capsule by mouth daily. [facility] DULoxetine 60 mg capsule 06-06 00:00: 00 Yes [id number] 60mg Take 1 capsule by mouth daily. [facility] DULoxetine 60 mg capsule 06-06 00:00: 00 Yes [id number] 60mg Take 1 capsule by mouth daily. [facility] DULoxetine 60 mg capsule 06-06 00:00: 00 Yes [id number] 60mg Take 1 capsule by mouth daily. [facility] ciprofloxac in HCl (CIPRO) tablet 500 mg 2019-05 01:30: 00 04-27 00:48 :00 No 500mg 500 mg, Oral, ONCE, 1 dose, 04/26/20 at 1930, CORINA
Re ason for Anti-Infec tive: Documented Infection< br>Documen jose angel Infection Site: Urine
D uration of Therapy: Other (see Comments) [facility] dexamethaso ne (DECADRON) injection 10 mg 2019-05 00:45: 00 04-27 00:45 :00 No 10mg 10 mg, Intramuscu lar, ONCE, 1 dose, 04/26/20 at 1845, CORINA [facility] famotidine (PEPCID) tablet 40 mg 2019-05 00:45: 00 04-26 23:51 :00 No 40mg 40 mg, Oral, ONCE, 1 dose, 04/26/20 at 1845, CORINA [facility] diphenhydrA MINE (BENADRYL) tablet 25 mg 2019-05 00:45: 00 04-26 23:51 :00 No 25mg 25 mg, Oral, ONCE, 1 dose, 04/26/20 at 1845, CORINA [facility] predniSONE 20 mg tablet 2019-05 00:00: 00 05-03 05:59 :00 No [id number] 40mg Take 2 tablets by mouth daily for 5 days. [facility] permethrin 5 % cream 2019-05 00:00: 00 Yes [id number] Cream 5%: Apply to entire body; leave on for 8 to 14 hours before washing off with water [facility] permethrin 5 % cream 2019-05 00:00: 00 Yes [id number] Cream 5%: Apply to entire body; leave on for 8 to 14 hours before washing off with water [facility] permethrin 5 % cream 2019-05 00:00: 00 Yes [id number] Cream 5%: Apply to entire body; leave on for 8 to 14 hours before washing off with water [facility] permethrin 5 % cream 2019-05 00:00: 00 Yes [id number] Cream 5%: Apply to entire body; leave on for 8 to 14 hours before washing off with water [facility] permethrin 5 % cream 2019-05 00:00: 00 Yes [id number] Cream 5%: Apply to entire body; leave on for 8 to 14 hours before washing off with water [facility] permethrin 5 % cream 2019-05 00:00: 00 Yes [id number] Cream 5%: Apply to entire body; leave on for 8 to 14 hours before washing off with water [facility] permethrin 5 % cream 2019-05 00:00: 00 Yes [id number] Cream 5%: Apply to entire body; leave on for 8 to 14 hours before washing off with water [facility] permethrin 5 % cream 2019-05 00:00: 00 Yes [id number] Cream 5%: Apply to entire body; leave on for 8 to 14 hours before washing off with water [facility] permethrin 5 % cream 2019-05 00:00: 00 Yes [id number] Cream 5%: Apply to entire body; leave on for 8 to 14 hours before washing off with water [facility] permethrin 5 % cream 2019-05 00:00: 00 Yes [id number] Cream 5%: Apply to entire body; leave on for 8 to 14 hours before washing off with water [facility] permethrin 5 % cream 2019-05 00:00: 00 Yes [id number] Cream 5%: Apply to entire body; leave on for 8 to 14 hours before washing off with water [facility] permethrin 5 % cream 2019-05 00:00: 00 Yes [id number] Cream 5%: Apply to entire body; leave on for 8 to 14 hours before washing off with water [facility] permethrin 5 % cream 2019-05 00:00: 00 09-07 00:00 :00 No [id number] Cream 5%: Apply to entire body; leave on for 8 to 14 hours before washing off with water [facility] permethrin 5 % cream 2019-05 00:00: 00 09-07 00:00 :00 No [id number] Cream 5%: Apply to entire body; leave on for 8 to 14 hours before washing off with water [facility] famotidine (PEPCID) 20 mg tablet 2019-05 00:00: 00 05-07 05:59 :00 No [id number] 20mg Take 1 tablet by mouth 2 (two) times daily for 10 days. [facility] ciprofloxac in HCl 500 mg tablet 2019-05 00:00: 00 05-02 05:59 :00 No [id number] 500mg Take 1 tablet by mouth 2 (two) times daily for 5 days. [facility] NAPROXEN/ES OMEPRAZOLE MAG (VIMOVO ORAL) 01-17 18:06: 27 Yes Take by mouth. [facility] NAPROXEN/ES OMEPRAZOLE MAG (VIMOVO ORAL) 01-17 18:06: 27 Yes Take by mouth. [facility] NAPROXEN/ES OMEPRAZOLE MAG (VIMOVO ORAL) 01-17 18:06: 27 Yes Take by mouth. [facility] CYCLOBENZAP RINE HCL (FLEXERIL ORAL) 01-17 18:04: 02 Yes Take by mouth. [facility] GABAPENTIN, BULK, [facility] 01-17 18:04: 02 Yes [facility] CYCLOBENZAP RINE HCL (FLEXERIL ORAL) 01-17 18:04: 02 Yes Take by mouth. [facility] GABAPENTIN, BULK, [facility] 01-17 18:04: 02 Yes [facility] CYCLOBENZAP RINE HCL (FLEXERIL ORAL) 01-17 18:04: 02 Yes Take by mouth. [facility] GABAPENTIN, BULK, [facility] 01-17 18:04: 02 Yes [facility] NAPROXEN/ES OMEPRAZOLE MAG (VIMOVO ORAL) 01-17 13:06: 27 Yes Take by mouth. [facility] NAPROXEN/ES OMEPRAZOLE MAG (VIMOVO ORAL) 01-17 13:06: 27 Yes Take by mouth. [facility] CYCLOBENZAP RINE HCL (FLEXERIL ORAL) 01-17 13:04: 02 Yes Take by mouth. [facility] GABAPENTIN, BULK, [facility] 01-17 13:04: 02 Yes [facility] CYCLOBENZAP RINE HCL (FLEXERIL ORAL) 01-17 13:04: 02 Yes Take by mouth. [facility] GABAPENTIN, BULK, [facility] 01-17 13:04: 02 Yes [facility] HYDROcodone -acetaminop hen (NORCO 5) 5-325 mg tablet 01-17 00:00: 00 Yes 1{tbl} Take 1 Tab by mouth every 4 (four) hours as needed for Pain. [facility] naproxen (NAPROSYN) 500 mg tablet 01-17 00:00: 00 Yes 500mg Take 1 Tab by mouth 2 (two) times daily with meals. [facility] cyclobenzap rine (FLEXERIL) 10 mg tablet 01-17 00:00: 00 Yes 10mg Take 1 Tab by mouth 3 (three) times daily. [facility] HYDROcodone -acetaminop hen (NORCO 5) 5-325 mg tablet 01-17 00:00: 00 Yes 1{tbl} Take 1 Tab by mouth every 4 (four) hours as needed for Pain. [facility] naproxen (NAPROSYN) 500 mg tablet 01-17 00:00: 00 Yes 500mg Take 1 Tab by mouth 2 (two) times daily with meals. [facility] cyclobenzap rine (FLEXERIL) 10 mg tablet 01-17 00:00: 00 Yes 10mg Take 1 Tab by mouth 3 (three) times daily. [facility] HYDROcodone -acetaminop hen (NORCO 5) 5-325 mg tablet 01-17 00:00: 00 Yes 1{tbl} Take 1 Tab by mouth every 4 (four) hours as needed for Pain. [facility] naproxen (NAPROSYN) 500 mg tablet 01-17 00:00: 00 Yes 500mg Take 1 Tab by mouth 2 (two) times daily with meals. [facility] cyclobenzap rine (FLEXERIL) 10 mg tablet 01-17 00:00: 00 Yes 10mg Take 1 Tab by mouth 3 (three) times daily. [facility] HYDROcodone -acetaminop hen (NORCO 5) 5-325 mg tablet 01-17 00:00: 00 Yes 1{tbl} Take 1 Tab by mouth every 4 (four) hours as needed for Pain. [facility] naproxen (NAPROSYN) 500 mg tablet 01-17 00:00: 00 Yes 500mg Take 1 Tab by mouth 2 (two) times daily with meals. [facility] cyclobenzap rine (FLEXERIL) 10 mg tablet 01-17 00:00: 00 Yes 10mg Take 1 Tab by mouth 3 (three) times daily. [facility] HYDROcodone -acetaminop hen (NORCO 5) 5-325 mg tablet 01-17 00:00: 00 Yes 1{tbl} Take 1 Tab by mouth every 4 (four) hours as needed for Pain. [facility] naproxen (NAPROSYN) 500 mg tablet 01-17 00:00: 00 Yes 500mg Take 1 Tab by mouth 2 (two) times daily with meals. [facility] cyclobenzap rine (FLEXERIL) 10 mg tablet 01-17 00:00: 00 Yes 10mg Take 1 Tab by mouth 3 (three) times daily. [facility] HYDROcodone -acetaminop hen (NORCO 5) 5-325 mg tablet 01-17 00:00: 00 Yes 1{tbl} Take 1 Tab by mouth every 4 (four) hours as needed for Pain. [facility] naproxen (NAPROSYN) 500 mg tablet 01-17 00:00: 00 Yes 500mg Take 1 Tab by mouth 2 (two) times daily with meals. [facility] cyclobenzap rine (FLEXERIL) 10 mg tablet 01-17 00:00: 00 Yes 10mg Take 1 Tab by mouth 3 (three) times daily. [facility] HYDROcodone -acetaminop hen (NORCO 5) 5-325 mg tablet 01-17 00:00: 00 Yes 1{tbl} Take 1 Tab by mouth every 4 (four) hours as needed for Pain. [facility] naproxen (NAPROSYN) 500 mg tablet 01-17 00:00: 00 Yes 500mg Take 1 Tab by mouth 2 (two) times daily with meals. [facility] cyclobenzap rine (FLEXERIL) 10 mg tablet 01-17 00:00: 00 Yes 10mg Take 1 Tab by mouth 3 (three) times daily. [facility] HYDROcodone -acetaminop hen (NORCO 5) 5-325 mg tablet 01-17 00:00: 00 Yes 1{tbl} Take 1 Tab by mouth every 4 (four) hours as needed for Pain. [facility] naproxen (NAPROSYN) 500 mg tablet 01-17 00:00: 00 Yes 500mg Take 1 Tab by mouth 2 (two) times daily with meals. [facility] cyclobenzap rine (FLEXERIL) 10 mg tablet 01-17 00:00: 00 Yes 10mg Take 1 Tab by mouth 3 (three) times daily. [facility] HYDROcodone -acetaminop hen (NORCO 5) 5-325 mg tablet 01-17 00:00: 00 Yes 1{tbl} Take 1 Tab by mouth every 4 (four) hours as needed for Pain. [facility] naproxen (NAPROSYN) 500 mg tablet 01-17 00:00: 00 Yes 500mg Take 1 Tab by mouth 2 (two) times daily with meals. [facility] cyclobenzap rine (FLEXERIL) 10 mg tablet 01-17 00:00: 00 Yes 10mg Take 1 Tab by mouth 3 (three) times daily. [facility] HYDROcodone -acetaminop hen (NORCO 5) 5-325 mg tablet 01-17 00:00: 00 Yes 1{tbl} Take 1 Tab by mouth every 4 (four) hours as needed for Pain. [facility] naproxen (NAPROSYN) 500 mg tablet 01-17 00:00: 00 Yes 500mg Take 1 Tab by mouth 2 (two) times daily with meals. [facility] cyclobenzap rine (FLEXERIL) 10 mg tablet 01-17 00:00: 00 Yes 10mg Take 1 Tab by mouth 3 (three) times daily. [facility] HYDROcodone -acetaminop hen (NORCO 5) 5-325 mg tablet 01-17 00:00: 00 Yes 1{tbl} Take 1 Tab by mouth every 4 (four) hours as needed for Pain. [facility] naproxen (NAPROSYN) 500 mg tablet 01-17 00:00: 00 Yes 500mg Take 1 Tab by mouth 2 (two) times daily with meals. [facility] cyclobenzap rine (FLEXERIL) 10 mg tablet 01-17 00:00: 00 Yes 10mg Take 1 Tab by mouth 3 (three) times daily. [facility] HYDROcodone -acetaminop hen (NORCO 5) 5-325 mg tablet 01-17 00:00: 00 Yes 1{tbl} Take 1 Tab by mouth every 4 (four) hours as needed for Pain. [facility] naproxen (NAPROSYN) 500 mg tablet 01-17 00:00: 00 Yes 500mg Take 1 Tab by mouth 2 (two) times daily with meals. [facility] cyclobenzap rine (FLEXERIL) 10 mg tablet 01-17 00:00: 00 Yes 10mg Take 1 Tab by mouth 3 (three) times daily. [facility] HYDROcodone -acetaminop hen (NORCO 5) 5-325 mg tablet 01-17 00:00: 00 09-07 00:00 :00 No 1{tbl} Take 1 Tab by mouth every 4 (four) hours as needed for Pain. [facility] naproxen (NAPROSYN) 500 mg tablet 01-17 00:00: 00 09-07 00:00 :00 No 500mg Take 1 Tab by mouth 2 (two) times daily with meals. [facility] cyclobenzap rine (FLEXERIL) 10 mg tablet 01-17 00:00: 00 09-07 00:00 :00 No 10mg Take 1 Tab by mouth 3 (three) times daily. [facility] HYDROcodone -acetaminop hen (NORCO 5) 5-325 mg tablet 01-17 00:00: 00 09-07 00:00 :00 No 1{tbl} Take 1 Tab by mouth every 4 (four) hours as needed for Pain. [facility] naproxen (NAPROSYN) 500 mg tablet 01-17 00:00: 00 09-07 00:00 :00 No 500mg Take 1 Tab by mouth 2 (two) times daily with meals. [facility] cyclobenzap rine (FLEXERIL) 10 mg tablet 01-17 00:00: 00 09-07 00:00 :00 No 10mg Take 1 Tab by mouth 3 (three) times daily. [facility] Verapamil HCl ER 120 MG Verapamil HCl ER 120 MG No Verapamil HCl ER 120 MG Omeprazole 40 MG Omeprazole 40 MG No QD Omeprazole 40 MG Xanax 1 MG Xanax 1 MG No 1{ table t} BID Xanax 1 MG DULoxetine HCl 60 MG DULoxetine HCl 60 MG No 1{capsu le} QD DULoxetine HCl 60 MG Aspirin 81 81 MG Aspirin 81 81 MG No 1{table t} QD Aspirin 81 81 MG DULoxetine HCl 60 MG DULoxetine HCl 60 MG No BID DULoxetine HCl 60 MG Sucralfate 1 GM Sucralfate 1 GM No 1{table t_on_an _empty_ stomach } BID Sucralfate 1 GM Aspirin 81 81 MG Aspirin 81 81 MG No 1{table t} QD Aspirin 81 81 MG Omeprazole 40 MG Omeprazole 40 MG No QD Omeprazole 40 MG Verapamil HCl ER 240 MG Verapamil HCl ER 240 MG No Verapamil HCl ER 240 MG DULoxetine HCl 60 MG DULoxetine HCl 60 MG No BID DULoxetine HCl 60 MG Sucralfate 1 GM Sucralfate 1 GM No 1{table t_on_an _empty_ stomach } BID Sucralfate 1 GM Aspirin 81 81 MG Aspirin 81 81 MG No 1{table t} QD Aspirin 81 81 MG Omeprazole 40 MG Omeprazole 40 MG No QD Omeprazole 40 MG Verapamil HCl ER 240 MG Verapamil HCl ER 240 MG No Verapamil HCl ER 240 MG DULoxetine HCl 60 MG DULoxetine HCl 60 MG No BID DULoxetine HCl 60 MG Sucralfate 1 GM Sucralfate 1 GM No 1{table t_on_an _empty_ stomach } BID Sucralfate 1 GM Aspirin 81 81 MG Aspirin 81 81 MG No 1{table t} QD Aspirin 81 81 MG Omeprazole 40 MG Omeprazole 40 MG No QD Omeprazole 40 MG Verapamil HCl ER 240 MG Verapamil HCl ER 240 MG No Verapamil HCl ER 240 MG DULoxetine HCl 60 MG DULoxetine HCl 60 MG No BID DULoxetine HCl 60 MG Sucralfate 1 GM Sucralfate 1 GM No 1{table t_on_an _empty_ stomach } BID Sucralfate 1 GM Aspirin 81 81 MG Aspirin 81 81 MG No 1{table t} QD Aspirin 81 81 MG Omeprazole 40 MG Omeprazole 40 MG No QD Omeprazole 40 MG Verapamil HCl ER 240 MG Verapamil HCl ER 240 MG No Verapamil HCl ER 240 MG DULoxetine HCl 60 MG DULoxetine HCl 60 MG No BID DULoxetine HCl 60 MG Sucralfate 1 GM Sucralfate 1 GM No 1{table t_on_an _empty_ stomach } BID Sucralfate 1 GM Aspirin 81 81 MG Aspirin 81 81 MG No 1{table t} QD Aspirin 81 81 MG Omeprazole 40 MG Omeprazole 40 MG No QD Omeprazole 40 MG Verapamil HCl ER 240 MG Verapamil HCl ER 240 MG No Verapamil HCl ER 240 MG DULoxetine HCl 60 MG DULoxetine HCl 60 MG No BID DULoxetine HCl 60 MG Aspirin 81 81 MG Aspirin 81 81 MG No 1{table t} QD Aspirin 81 81 MG Sucralfate 1 GM Sucralfate 1 GM No 1{table t_on_an _empty_ stomach } BID Sucralfate 1 GM Verapamil HCl ER 240 MG Verapamil HCl ER 240 MG No Verapamil HCl ER 240 MG Omeprazole 40 MG Omeprazole 40 MG No QD Omeprazole 40 MG DULoxetine HCl 60 MG DULoxetine HCl 60 MG No BID DULoxetine HCl 60 MG Aspirin 81 81 MG Aspirin 81 81 MG No 1{table t} QD Aspirin 81 81 MG Sucralfate 1 GM Sucralfate 1 GM No 1{table t_on_an _empty_ stomach } BID Sucralfate 1 GM Verapamil HCl ER 240 MG Verapamil HCl ER 240 MG No Verapamil HCl ER 240 MG Omeprazole 40 MG Omeprazole 40 MG No QD Omeprazole 40 MG DULoxetine HCl 60 MG DULoxetine HCl 60 MG No BID DULoxetine HCl 60 MG Aspirin 81 81 MG Aspirin 81 81 MG No 1{table t} QD Aspirin 81 81 MG Sucralfate 1 GM Sucralfate 1 GM No 1{table t_on_an _empty_ stomach } BID Sucralfate 1 GM Verapamil HCl ER 240 MG Verapamil HCl ER 240 MG No Verapamil HCl ER 240 MG Omeprazole 40 MG Omeprazole 40 MG No QD Omeprazole 40 MG Verapamil HCl ER 120 MG Verapamil HCl ER 120 MG No 1{table t} BID Verapamil HCl ER 120 MG Aspirin 81 81 MG Aspirin 81 81 MG No 1{table t} QD Aspirin 81 81 MG DULoxetine HCl 60 MG DULoxetine HCl 60 MG No 1{capsu le} QD DULoxetine HCl 60 MG Verapamil HCl ER 120 MG Verapamil HCl ER 120 MG No 1{table t} BID Verapamil HCl ER 120 MG Aspirin 81 81 MG Aspirin 81 81 MG No 1{table t} QD Aspirin 81 81 MG DULoxetine HCl 60 MG DULoxetine HCl 60 MG No 1{capsu le} QD DULoxetine HCl 60 MG Verapamil HCl ER 120 MG Verapamil HCl ER 120 MG No 1{table t} BID Verapamil HCl ER 120 MG Aspirin 81 81 MG Aspirin 81 81 MG No 1{table t} QD Aspirin 81 81 MG DULoxetine HCl 60 MG DULoxetine HCl 60 MG No 1{capsu le} QD DULoxetine HCl 60 MG Verapamil HCl ER 120 MG Verapamil HCl ER 120 MG No 1{table t} BID Verapamil HCl ER 120 MG Aspirin 81 81 MG Aspirin 81 81 MG No 1{table t} QD Aspirin 81 81 MG DULoxetine HCl 60 MG DULoxetine HCl 60 MG No 1{capsu le} QD DULoxetine HCl 60 MG DULoxetine HCl 60 MG DULoxetine HCl 60 MG No 1{capsu le} QD DULoxetine HCl 60 MG Aspirin 81 81 MG Aspirin 81 81 MG No 1{table t} QD Aspirin 81 81 MG Verapamil HCl ER 120 MG Verapamil HCl ER 120 MG No 1{table t} BID Verapamil HCl ER 120 MG DULoxetine HCl 60 MG DULoxetine HCl 60 MG No 1{capsu le} QD DULoxetine HCl 60 MG Aspirin 81 81 MG Aspirin 81 81 MG No 1{table t} QD Aspirin 81 81 MG Verapamil HCl ER 120 MG Verapamil HCl ER 120 MG No 1{table t} BID Verapamil HCl ER 120 MG Verapamil HCl ER 120 MG Verapamil HCl ER 120 MG No 1{table t} BID Verapamil HCl ER 120 MG Aspirin 81 81 MG Aspirin 81 81 MG No 1{table t} QD Aspirin 81 81 MG DULoxetine HCl 60 MG DULoxetine HCl 60 MG No 1{capsu le} QD DULoxetine HCl 60 MG Verapamil HCl ER 120 MG Verapamil HCl ER 120 MG No Verapamil HCl ER 120 MG Immunizations Ordered Immunization Name Filled Immunization Name Date Status Comments Source TDAP 2014-09-20 00:00:00 Completed [facility] TDAP 2014-09-20 00:00:00 Completed [facility] TDAP 2014-09-20 00:00:00 Completed [facility] TDAP 2014-09-20 00:00:00 Completed [facility] TDAP 2014-09-20 00:00:00 Completed [facility] TDAP 2014-09-20 00:00:00 Completed [facility] TDAP 2014-09-20 00:00:00 Completed [facility] TDAP 2014-09-20 00:00:00 Completed [facility] TDAP 2014-09-20 00:00:00 Completed [facility] TDAP 2014-09-20 00:00:00 Completed [facility] TDAP 2014-09-20 00:00:00 Completed [facility] TDAP 2014-09-20 00:00:00 Completed [facility] TDAP 2014-09-20 00:00:00 Completed [facility] TDAP 2014-09-20 00:00:00 Completed [facility] TDAP 2014-09-20 00:00:00 Completed [facility] TDAP 2014-09-20 00:00:00 Completed [facility] TDAP 2014-09-20 00:00:00 Completed [facility] TDAP Unknown Completed [facility] TDAP Unknown Completed [facility] TDAP Unknown Completed [facility] Vital Signs Vital Name Observation Time Observation Value Comments S ource height 2023-02-15 08:20:00 64 [in_i] Commo n [facility] weight 2023-02-15 08:20:00 114.0 [lb_av] Co mmon [facility] temperature 2023-02-15 08:20:00 98.1 [degF] Com mon [facility] bmi 2023-02-15 08:20:00 19.57 kg/m2 Comm on [facility] oximetry 2023-02-15 08:20:00 100 % Commo n [facility] respiratory rate 2023-02-15 08:20:00 15 /min [facility] blood pressure systolic 2023-02-15 08:20:00 124 mm[Hg] [facility] blood pressure diastolic 2023-02-15 08:20:00 81 mm[Hg] [facility] Systolic blood pressure 2023-02-09 15:40:00 126 mm[Hg] [facility] Diastolic blood pressure 2023-02-09 15:40:00 85 mm[Hg] [facility] Heart rate 2023-02-09 15:40:00 83 /[facility] 2023-02-09 15:40:00 17 /min [facility] Body height 2023-02-09 15:40:00 165.1 cm [facility] Body weight 2023-02-09 15:40:00 51.211 kg [facility] BMI 2023-02-09 15:40:00 18.79 kg/m2 [facility] Oxygen saturation in Arterial blood by Pulse oximetry 2023-02-09 15:40:00 100 /min [facility] height 2023-01-13 08:00:00 64 [in_i] Commo n [facility] weight 2023-01-13 08:00:00 113.0 [lb_av] Co mmon [facility] temperature 2023-01-13 08:00:00 99.1 [degF] Com [facility] bmi 2023-01-13 08:00:00 19.39 kg/m2 Comm on [facility] oximetry 2023-01-13 08:00:00 100 % Commo n [facility] respiratory rate 2023-01-13 08:00:00 15 /min [facility] blood pressure systolic 2023-01-13 08:00:00 121 mm[Hg] Common [facility] blood pressure diastolic 2023-01-13 08:00:00 74 mm[Hg] Common [facility] height 2022-09-14 10:40:00 64 [in_i] Commo n [facility] weight 2022-09-14 10:40:00 110.4 [lb_av] Co mmon [facility] temperature 2022-09-14 10:40:00 98.0 [degF] Com mon [facility] bmi 2022-09-14 10:40:00 18.95 kg/m2 Comm on [facility] oximetry 2022-09-14 10:40:00 98 % Commo n [facility] respiratory rate 2022-09-14 10:40:00 16 /min [facility] blood pressure systolic 2022-09-14 10:40:00 106 mm[Hg] [facility] blood pressure diastolic 2022-09-14 10:40:00 69 mm[Hg] [facility] Systolic blood pressure 2022-09-07 14:43:00 111 mm[Hg] [facility] Diastolic blood pressure 2022-09-07 14:43:00 69 mm[Hg] [facility] Heart rate 2022-09-07 14:43:00 89 /[facility] height 2022-09-07 14:43:00 165.1 cm [facility] Body weight 2022-09-07 14:43:00 49.941 kg [facility] BMI 2022-09-07 14:43:00 18.32 kg/m2 [facility] Oxygen saturation in Arterial blood by Pulse oximetry 2022-09-07 14:43:00 100 /min [facility] Systolic blood pressure 2022-09-02 13:43:00 126 mm[Hg] [facility] Diastolic blood pressure 2022-09-02 13:43:00 78 mm[Hg] [facility] Heart rate 2022-09-02 13:43:00 81 /min [facility] Body temperature 2022-09-02 13:43:00 36.89 Evel[facility] Respiratory rate 2022-09-02 13:43:00 16 /min [facility] Body height 2022-09-02 13:43:00 165.1 cm [facility] Body weight 2022-09-02 13:43:00 49.805 kg [facility] BMI 2022-09-02 13:43:00 18.27 kg/m2 [facility] Oxygen saturation in Arterial blood by Pulse oximetry 2022-09-02 13:43:00 100 /min [facility] Systolic blood pressure 2022-07-29 20:23:00 121 mm[Hg] [facility] Diastolic blood pressure 2022-07-29 20:23:00 81 mm[Hg] [facility] Heart rate 2022-07-29 20:23:00 68 /min [facility] Respiratory rate 2022-07-29 20:23:00 19 /min [facility] Body height 2022-07-29 20:23:00 165.1 cm [facility] Body weight 2022-07-29 20:23:00 49.896 kg [facility] BMI 2022-07-29 20:23:00 18.30 kg/m2 [facility] Oxygen saturation in Arterial blood by Pulse oximetry 2022-07-29 20:23:00 100 /min [facility] Systolic blood pressure 2022-07-29 14:11:00 116 mm[Hg] [facility] Diastolic blood pressure 2022-07-29 14:11:00 73 mm[Hg] [facility] Heart rate 2022-07-29 14:11:00 84 /min [facility] Body temperature 2022-07-29 14:11:00 36.72 Evelia [facility] Respiratory rate 2022-07-29 14:11:00 16 /min [facility] Body height 2022-07-29 14:11:00 165.1 cm [facility] Body weight 2022-07-29 14:11:00 49.986 kg [facility] BMI 2022-07-29 14:11:00 18.34 kg/m2 [facility] Oxygen saturation in Arterial blood by Pulse oximetry 2022-07-29 14:11:00 100 /min [facility] height 2022-06-22 09:00:00 64 [in_i] Commo n [facility] weight 2022-06-22 09:00:00 108 [lb_av] Comm on [facility] temperature 2022-06-22 09:00:00 97.4 [degF] Com mon [facility] bmi 2022-06-22 09:00:00 18.54 kg/m2 Comm on [facility] oximetry 2022-06-22 09:00:00 97 % Commo n [facility] respiratory rate 2022-06-22 09:00:00 16 /min [facility] blood pressure systolic 2022-06-22 09:00:00 124 mm[Hg] [facility] diastolic 2022-06-22 09:00:00 75 mm[Hg] [facility] height 2022-05-11 16:00:00 64 [in_i] Commo n [facility] weight 2022-05-11 16:00:00 110.8 [lb_av] Co mmon [facility] temperature 2022-05-11 16:00:00 97.4 [degF] Com [facility] bmi 2022-05-11 16:00:00 19.02 kg/m2 Comm on [facility] oximetry 2022-05-11 16:00:00 97 % Commo n [facility] respiratory rate 2022-05-11 16:00:00 16 /min [facility] blood pressure systolic 2022-05-11 16:00:00 124 mm[Hg] [facility] blood pressure diastolic 2022-05-11 16:00:00 84 mm[Hg] [facility] weight 2021-12-09 08:20:00 118.4 [lb_av] Co mmon [facility] temperature 2021-12-09 08:20:00 97.3 [degF] Com [facility] bmi 2021-12-09 08:20:00 20.32 kg/m2 Comm on [facility] oximetry 2021-12-09 08:20:00 100 % Commo n [facility] respiratory rate 2021-12-09 08:20:00 16 /min [facility] blood pressure systolic 2021-12-09 08:20:00 107 mm[Hg] [facility] blood [facility] diastolic 2021-12-09 08:20:00 67 mm[Hg] [facility] height 2021-12-09 08:20:00 64 [in_i] Commo n [facility] height 2021-09-08 11:20:00 64 [in_i] Commo n [facility] weight 2021-09-08 11:20:00 118 [lb_av] Comm on [facility] temperature 2021-09-08 11:20:00 97.2 [degF] Com [facility] bmi 2021-09-08 11:20:00 20.25 kg/m2 Comm on [facility] oximetry 2021-09-08 11:20:00 99 % Commo n [facility] respiratory rate 2021-09-08 11:20:00 17 /min [facility] blood pressure systolic 2021-09-08 11:20:00 112 mm[Hg] Common [facility] blood pressure diastolic 2021-09-08 11:20:00 80 mm[Hg] [facility] height 2021-03-31 09:00:00 64 [in_i] Commo n [facility] weight 2021-03-31 09:00:00 111 [lb_av] Comm on [facility] temperature 2021-03-31 09:00:00 98.8 [degF] Com [facility] bmi 2021-03-31 09:00:00 19.05 kg/m2 Comm on [facility] oximetry 2021-03-31 09:00:00 100 % Commo n [facility] respiratory rate 2021-03-31 09:00:00 18 /min [facility] blood pressure systolic 2021-03-31 09:00:00 116 mm[Hg] [facility] blood pressure diastolic 2021-03-31 09:00:00 64 mm[Hg] [facility] Body weight 2020-04-26 23:36:00 45.36 kg [facility] Systolic blood pressure 2020-04-26 23:34:00 110 mm[Hg] [facility] Diastolic blood pressure 2020-04-26 23:34:00 78 mm[Hg] [facility] Heart rate 2020-04-26 23:34:00 89 /min [facility] Body temperature 2020-04-26 23:34:00 37 Evelia [facility] Respiratory rate 2020-04-26 23:34:00 18 /min [facility] Oxygen saturation in Arterial blood by Pulse oximetry 2020-04-26 23:34:00 100 /min [facility] Procedures Procedure Date / Time Performed Performing Clinician Source INSURANCE CORRESPONDENCE 2022-09-30 05:01:00 Doc tor Unassigned, [facility] EXTERNAL PROVIDER - ADC CARDIOLOGY 2022-08-26 05:01:00 Doctor Unassigned, [facility] HB ECG ROUTINE & RHYTHM STRIP 2022-07-29 20:28:03 Aaron Abreu [facility] REFERRAL- REQUEST/RESPONSE 2022-07-27 06:01:00 Doctor Unassigned, [facility] POCT TEST 2020-04-26 23:50:00 Ambrose Mackenzie [facility] URINALYSIS 2020-04-26 23:49:00 Ambrose Mackenzie [facility] NOTICE OF PRIVACY PRACTICES 2020-04-26 23:24:44 Doctor Unassigned, [facility] CONSENT/REFUSAL FOR DIAGNOSIS AND TREATMENT 2020-04-26 23:24:28 Doctor Unassigned, [facility] Encounters Start Date/Time End Date/Time Encounter Type Admission Type Attending Clinicians Care Facility Care Department Encounter ID Source 2023-02-14 15:04:00 Outpatient Dina Marino [facility] [id number] [facility] 2022-06-18 08:45:00 Outpatient Dina Marino [facility] [id number] [facility] 2022-05-07 11:31:00 Outpatient Dina Marino [facility] [id number] [facility] 2022-02-15 08:14:00 Outpatient Dina Marino [facility] [id number] [facility] 2021-12-07 09:30:00 Outpatient Dina Marino [facility] [id number] [facility] 2021-06-17 14:16:31 Outpatient Dina Marino [facility] [id number] [facility] 2021-06-17 14:10:32 Outpatient Dina Marino [facility] [id number] [facility] 2021-06-17 14:10:07 Outpatient [facility] [id number] [facility] 2021-06-17 14:07:59 Outpatient Mirian Govea [facility] [id number] [facility] 2021-06-17 14:03:32 Outpatient [facility] [id number] [facility] 2021-06-17 14:02:47 Outpatient [facility] [id number] [facility] 2021-06-17 14:02:10 Outpatient [facility] [id number] [facility] 2021-06-17 13:50:52 Outpatient Bishnu Webb [facility] [id number] [facility] 2023-08-10 15:30:00 2023-08-10 15:30:00 Outpatient AARON REED [facility] [id number] [facility] 2023-04-25 00:00:00 2023-04-25 00:00:00 Refill Aaron Abreu [facility] [id number] [facility] 2023-03-22 00:00:00 2023-03-22 00:00:00 Outpatient [email or web address] [email or web address]_S [facility] [id number] [facility] 2023-03-03 15:40:00 2023-03-03 15:40:00 Outpatient FRANCISCO GONZALEZ [facility] [id number] [facility] 2023-03-03 14:20:00 2023-03-03 14:20:00 Outpatient [facility] [id number] [facility] 2023-02-15 00:00:00 2023-02-15 00:00:00 OFFICE VISIT ESTAB PT LEVEL 4 STLMLC STLMLC [id number] [facility] 2023-02-09 10:30:00 2023-02-09 11:14:42 Outpatient [facility]ON [facility] [id number] [facility] 2023-02-09 10:30:00 2023-02-09 11:14:42 Office Visit Aaron Abreu [facility] 1.2.840.114 350.1.13.10 4.2.7.2.686 [id number] [facility] 2023-01-13 00:00:00 2023-01-13 00:00:00 OFFICE VISIT ESTAB PT LEVEL 3 STLMLC STLMLC [id number] [facility] 2022-10-28 00:00:00 2022-10-28 00:00:00 Telephone Aaron Abreu [facility] 1.2.840.114 350.1.13.10 4.2.7.2.686 [id number] [facility] 2022-09-30 00:00:00 2022-09-30 00:00:00 Orders Only Doctor Unassigned, [facility] 1.2.840.114 350.1.13.10 4.2.7.2.686 [id number] [facility] 2022-09-22 07:53:48 2022-09-22 23:59:00 Outpatient R [facility]ON [facility] [id number] [facility] 2022-09-14 00:00:00 2022-09-14 00:00:00 PREV VISIT EST AGE 40-64 [facility] [id number] [facility] 2022-09-08 00:00:00 2022-09-08 00:00:00 Telephone Aaron Abreu [facility] 1.2.840.114 350.1.13.10 4.2.7.2.686 [id number] [facility] 2022-09-07 08:39:05 2022-09-07 23:59:00 Outpatient R [facility] [id number] [facility] 2022-09-07 10:00:00 2022-09-07 10:05:08 Office Visit Aaron Abreu [facility] 1.2.840.114 350.1.13.10 4.2.7.2.686 [id number] [facility] 2022-09-02 08:45:00 2022-09-02 09:00:46 Outpatient R DEEPTI JON[facility] [id number] [facility] 2022-09-02 08:45:00 2022-09-02 09:00:46 Office Visit [facility] 1.2.840.114 350.1.13.10 4.2.7.2.686 [id number] [facility] 2022-08-30 13:00:00 2022-08-30 13:00:00 Outpatient R [facility]EN [facility] [id number] [facility] 2022-08-26 00:00:00 2022-08-26 00:00:00 Orders Only Doctor Unassigned, [facility] 1.2.840.114 350.1.13.10 4.2.7.2.686 [id number] [facility] 2022-08-02 00:00:00 2022-08-02 00:00:00 (TEL) STLMLC STLMLC [id number] [facility] 2022-07-29 14:00:00 2022-07-29 15:27:14 Office Visit Aaron Abreu [facility] 1.2.840.114 350.1.13.10 4.2.7.2.686 [id number] [facility] 2022-07-29 08:00:00 2022-07-29 08:42:20 Outpatient [facility] [id number] [facility] 2022-07-29 08:00:00 2022-07-29 08:42:20 [facility] 1.2.840.114 350.1.13.10 4.2.7.2.686 [id number] [facility] 2022-07-27 00:00:00 2022-07-27 00:00:00 Orders Only Doctor Unassigned, [facility] 1.2.840.114 350.1.13.10 4.2.7.2.686 [id number] [facility] 2022-07-22 00:00:00 2022-07-22 00:00:00 (TEL) STLMLC STLMLC [id number] [facility] 2022-07-19 00:00:00 2022-07-19 00:00:00 (TEL) STLMLC STLMLC [id number] [facility] 2022-07-02 00:00:00 2022-07-02 00:00:00 (TEL) STLMLC STLMLC [id number] [facility] 2022-06-22 00:00:00 2022-06-22 00:00:00 PREV VISIT EST AGE 40-64 STLMLC STLMLC [id number] [facility] 2022-05-11 00:00:00 2022-05-11 00:00:00 OFFICE VISIT ESTAB PT LEVEL 4 STLMLC STLMLC [id number] [facility] 2021-12-09 00:00:00 2021-12-09 00:00:00 OFFICE VISIT ESTAB PT LEVEL 4 STLMLC STLMLC [id number] [facility] 2021-09-08 00:00:00 2021-09-08 00:00:00 OFFICE VISIT ESTAB PT LEVEL 4 STLMLC STLMLC [id number] [facility] 2021-08-04 00:00:00 2021-08-04 00:00:00 (TEL) STLMLC STLMLC [id number] [facility] 2021-07-03 00:00:00 2021-07-03 00:00:00 Bishnu Serrato [facility] OFFICE BUILDING ONE ..840.114 350.1.13.10 4.2.7.2.686 [id number] [facility] 2021-07-03 00:00:00 2021-07-03 00:00:00 (TEL) STLMLC STLMLC [id number] [facility] 2021-04-15 00:00:00 2021-04-15 00:00:00 (TEL) STLMLC STLMLC [id number] [facility] 2021-04-09 00:00:00 2021-04-09 00:00:00 (TEL) STLMLC STLMLC [id number] [facility] 2021-03-31 00:00:00 2021-03-31 00:00:00 OFFICE VISIT NEW PT LEVEL 4 STLMLC STLMLC [id number] [facility] 2021-01-21 00:00:00 2021-01-21 00:00:00 Bishnu Serrato [facility] Office [facility] 1.2.840.114 350.1.13.10 4.2.7.2.686 [id number] [facility] 2021-01-16 14:00:00 2021-01-16 14:00:00 Outpatient [facility] [id number] [facility] 2020-04-26 17:37:00 2020-04-26 19:10:00 Emergency Ambrose Mackenzie [facility] 1.2.840.114 350.1.13.10 4.2.7.2.686 [id number] [facility] 2020-04-26 17:24:00 2020-04-26 17:24:00 Emergency X AMBROSE MACKENZIE [facility] ERT [id number] [facility] 2019-12-20 08:00:00 2019-12-20 08:00:00 Outpatient B[facility] [id number] [facility] Results Test Description Test Time Test Comments Results Result [id number]:50:00* Test Item Value Reference Range Interpretation Comme nts POCT PREG (test code = 1605) negative On board controls acceptable with C Line (test code = 3574) present POCT PREG LOT # (test code = 3575) [id number] POCT PREG TEST DATE ( test code = 3576) Lab Interpretation (test cod e = [id number]) [facility]
[2023-07-19 00:23] LABS: Absolute Lymphocytes (CBC) 1.7 K/uL (0.7-4.9); Hematocrit 38.3 % (36.0-45.0); Lymphocytes % 13.3 % (15.3-44.8); MCV 90.9 fL (80-100); MPV 7.6 fL (7.6-11.3); Platelets 266 thou/uL (152-406); RBC Red Blood Cell Count 4.21 M/uL (3.86-4.86)
[2023-07-19 00:37] LABS: Protime INR 1.01
[2023-07-19 01:11] LABS: Albumin 3.6 g/dL (3.4-5.0); Bilirubin Direct 0.1 mg/dL (0-0.2); Bilirubin Indirect, Calculated 0.2 mg/dL (0.2-0.8); Bilirubin Total 0.3 mg/dL (0.2-1.0); Potassium 3.3 mEq/L (3.5-5.1); Protein, Total 6.7 g/dL (6.4-8.2); Troponin High Sensitivity 3.9 pg/mL (<58.9)
[2023-07-19 02:16] LABS: Specific Gravity 1.022 (1.005-1.030)
[2023-07-19 02:25] LABS: Barbiturates NEGATIVE (NEGATIVE); Benzodiazepines NEGATIVE (NEGATIVE); Cocaine NEGATIVE (NEGATIVE); METHAMPHETAM NEGATIVE (NEGATIVE); Methadone NEGATIVE (NEGATIVE); Opiates NEGATIVE (NEGATIVE); Phencyclidine NEGATIVE (NEGATIVE); Specific Gravity 1.022 (1.005-1.030); THC Cannibis NEGATIVE (NEGATIVE); Urine Bacteria None Seen /HPF (<20); Urine Bilirubin NEGATIVE (Negative); Urine Blood Negative (Negative); Urine Clarity Clear (Clear); Urine Color Yellow (Yellow); Urine Glucose NEGATIVE (Negative); Urine Mucus Slight /HPF (None Seen); Urine Protein NEGATIVE (Negative); Urine RBC None Seen /HPF (None Seen); Urine Urobilinogen 1+ (Normal)
--- NOTE | 2023-07-19 02:27 | EDPHYS ---
Physician Documentation [facility] Name: Claudine Herron Age: 43 yrs Sex: Female : 1980 Arrival Date: 07/18/2023 Time: 23:04 Bed 11 Private MD: ED Physician Sumanth Matos HPI: 07/18 23:35 This 43 yrs old Female presents to ER via Ambulatory with complaints of Chest Pain, cp Vomiting. 23:35 The patient or guardian reports chest pain that is located primarily in the substernal cp area, epigastric area. 23:35 Onset: this afternoon, pain in epigastric area started after eating. Associated signs cp and symptoms: Pertinent positives: nausea, vomiting, Pertinent negatives: cough, lower extremity pain, lower extremity swelling, shortness of breath. The chest pain is described as sharp. Duration: The patient or guardian reports a single episode, markedly improved. Historical: - Allergies: 23:30 Amoxicillin; hb 23:30 Latex; hb 23:30 PENICILLINS; hb 23:30 Sulfa (Sulfonamide Antibiotics); hb - PMHx: 23:30 neurocardiogenic syncope; hb - PSHx: 23:30 Ligation of fallopian tube; Total abdominal hysterectomy; hb - Immunization history:: Adult Immunizations up to date. - Social history:: Smoking status: unknown. ROS: 23:40 Cardiovascular: Positive for chest pain, of the substernal, Negative for edema, cp palpitations, 23:40 Constitutional: Negative for body aches, chills, fever, poor PO intake, cp 23:40 Eyes: Negative for injury, pain, redness, and discharge, cp 23:40 ENT: Negative for drainage from ear(s), ear pain, sore throat, difficulty swallowing, difficulty handling secretions, 23:40 Respiratory: Negative for cough, shortness of breath, wheezing, 23:40 Abdomen/GI: Positive for abdominal pain, nausea, vomiting, of the epigastric area, Negative for diarrhea, constipation, hematemesis, 23:40 Back: Positive for radiated pain, 23:40 Neuro: Negative for altered mental status, dizziness, headache, syncope, weakness, cp 23:40 All other systems are negative, Exam: 23:20 ECG was reviewed by the Attending Physician. cp 23:45 Constitutional: The patient appears in no acute distress, alert, awake, cp non-diaphoretic, non-toxic, well developed, well nourished, anxious, 23:45 Head/Face: Normocephalic, atraumatic. cp 23:45 Eyes: Periorbital structures: appear normal, Conjunctiva: normal, no exudate, no injection, Sclera: no appreciated abnormality, Lids and lashes: appear normal, bilaterally, 23:45 ENT: External ear(s): are unremarkable, Nose: is normal, Mouth: Lips: moist, Oral mucosa: pink and intact, moist, Posterior pharynx: Airway: no evidence of obstruction, patent, 23:45 Neck: ROM/movement: is normal, is supple, without pain, no range of motions limitations, 23:45 Chest/axilla: Inspection: normal, 23:45 Cardiovascular: Rate: normal, Rhythm: regular, Edema: is not appreciated, JVD: is not appreciated, 23:45 Respiratory: the patient does not display signs of respiratory distress, Respirations: normal, no use of accessory muscles, no retractions, labored breathing, is not present, Breath sounds: are clear throughout, no decreased breath sounds, no stridor, no wheezing, 23:45 Abdomen/GI: Inspection: abdomen appears normal, Bowel sounds: active, all quadrants, Palpation: abdomen is soft and non-tender, 23:45 Back: CVA tenderness, is absent, 23:45 Neuro: Orientation: to person, place \T\ time. Mentation: is normal, Motor: moves all fours, strength is normal, Sensation: is normal, Vital Signs: 23:10 BP 117 / 73; Pulse 62; Resp 23; Temp 98.3(O); Pulse Ox 100% on R/A; Weight 52.62 kg; hb Height 5 ft. 5 in. ; Pain 7/10; 07/19 01:33 BP 105 / 68; Pulse 57; Resp 14; Pulse Ox 98% on R/A; jb4 07/18 23:10 Body Mass Index 19.30 (52.62 kg, 165.1 cm) hb 07/18 23:10 Pain Scale: Adult hb MDM: 07/18 23:27 Patient medically screened. cp 07/19 00:00 Differential diagnosis: abnormal EKG, acute myocardial infarction, acute pericarditis, cp anxiety, cholecystitis, Cholelithiasis pancreatitis, pericarditis, pleurisy, pneumonia, pneumothorax. : Data reviewed: vital signs, nurses notes, lab test result(s), EKG, radiologic studies, cp plain films, ultrasound. : The patient was not given aspirin in the Emergency Department. I considered the cp following discharge prescriptions or medication management in the emergency department Medications were administered in the Emergency Department. See MAR. Counseling: I had a detailed discussion with the patient and/or guardian regarding the historical points, exam findings, and any diagnostic results supporting the discharge/admit diagnosis, lab results, radiology results, the need for outpatient follow up, for definitive care, a general surgeon, to return to the emergency department if symptoms worsen or persist or if there are any questions or concerns that arise at home. Response to treatment: the patient's symptoms have markedly improved after treatment, and as a result, I will discharge patient. Special discussion: Based on the patient's history, exam, and Dx evaluation, there is no indication for emergent intervention or inpatient Tx. It is understood by the patient/guardian that if the Sx's persist or worsen they need to return immediately for re-evaluation. Based on the patient's Hx, exam, and Dx evaluation, there is no indication for emergent surgery or inpatient Tx. It is understood by the patient/guardian that if the Sx's persist or worsen they need to return immediately for re-evaluation. 07/18 22: Order name: Basic Metabolic Panel; Complete Time: cp 07/19 01:33 Interpretation: Normal except: K 3.3; GLUC 113. cp 07/18 23:29 Order name: CBC with Diff; Complete Time: : cp 07/19 01:09 Interpretation: Abnormal: WBC 12.80. cp 07/18 22: Order name: LFT's; Complete Time: : cp 07/19 01:33 Interpretation: Normal except: AST 42. cp 07/18 23:29 Order name: Magnesium; Complete Time: cp 07/18 22: Order name: NT PRO-BNP; Complete Time: : cp 07/18 22: Order name: PT-INR; Complete Time: 01: cp 07/18 23:29 Order name: Troponin HS; Complete Time: cp 07/18 23: Order name: Urinalysis W/Microscopic; Complete Time: 02: cp 07/18 23:29 Order name: Test, Urine; Complete Time: 02: cp 07/19 02:17 Interpretation: Reviewed. cp 07/18 23:29 Order name: UDS; Complete Time: 02:26 cp 07/18 23:29 Order name: Lipase; Complete Time: 01:33 cp 07/19 01:33 Interpretation: Abnormal: LIP 101. cp 07/18 23:29 Order name: XRAY Chest (1 view) cp 07/18 23:48 Order name: US Abdomen Limited: gallbladder cp 07/18 23:29 Order name: EKG; Complete Time: 23:30 cp 07/18 23:29 Order name: Cardiac monitoring; Complete Time: 23:41 cp 07/18 23:29 Order name: EKG - Nurse/Tech; Complete Time: 23:41 cp 07/18 23:29 Order name: IV Saline Lock; Complete Time: 23:52 cp 07/18 23:29 Order name: Labs collected and sent; Complete Time: 23:52 cp 07/18 23:29 Order name: O2 Per Protocol; Complete Time: 23:41 cp 07/18 23:29 Order name: O2 Sat Monitoring; Complete Time: 23:40 cp EC/26 23:20 Rate is 61 beats/min. Rhythm is regular. VT interval is normal. QRS interval is normal. cp QT interval is normal. Interpreted by me. Reviewed by me. Administered Medications: 07/19 00:25 Drug: Ativan IVP 1 mg IVP once Route: IVP; Site: right antecubital; bp 02:37 Drug: Potassium PO Effervescent Tablet 50 mEq PO once; dissolve in 4 ounces of water or jb4 juice Route: PO; Disposition Summary: 07/19/23 02:27 Discharge Ordered Notes: Location: Home cp Problem: new cp Symptoms: have improved cp Condition: Stable cp Diagnosis - Other cholelithiasis without obstruction cp - Chest pain, unspecified cp - Hypokalemia cp Followup: cp - With: David Vargas MD - When: 1 - 2 days - Reason: gallstones Discharge Instructions: - Discharge Summary Sheet cp - Nonspecific Chest Pain, Adult cp - Potassium Content of Foods cp - Cholelithiasis cp - Hypokalemia cp - Form - Excuse from Work, School, or Physical Activity cp Forms: - Medication Reconciliation Form cp - Thank You Letter cp - Antibiotic Education cp - Prescription Opioid Use cp - Patient Portal Instructions cp - Leadership Thank You Letter cp - Family Work Release jb4 Prescriptions: - Pepcid 20 mg Oral Tablet - take 1 tablet ORAL route every 12 hours for 10 days; 20 tablet; Refills: 0, cp Product Selection Permitted - Zofran 4 mg Oral Tablet - take 1 tablet ORAL route every 12 hours As needed; 20 tablet; Refills: 0, cp Product Selection Permitted - dicyclomine 20 mg Oral tablet - take 1 tablet ORAL route 4 times per day; 30 tablet; Refills: 0, Product cp Selection Permitted Signatures: Dispatcher [employer] EDMS Shay Jimenez PA PA cp Wendi Langston, RN RN Mauricio Rodriguez RN RN jb4 Darrell Cohen RN RN bp
--- NOTE | 2023-07-19 02:27 | ER ---
Nurse's Notes [facility] Name: Claudine Herron Age: 43 yrs Sex: Female : 1980 Arrival Date: 07/18/2023 Time: 23:04 Bed 11 Private MD: Diagnosis: Other cholelithiasis without obstruction;Chest pain, unspecified;Hypokalemia Presentation: 07/18 23:10 Chief complaint: Sharp epigastric pain and N/V since this afternoon. Coronavirus hb screen: At this time, the client does not indicate any symptoms associated with coronavirus-19. Ebola Screen: No symptoms or risks identified at this time. Initial Sepsis Screen: Does the patient meet any 2 criteria? No. Patient's initial sepsis screen is negative. Does the patient have a suspected source of infection? No. Patient's initial sepsis screen is negative. Risk Assessment: Do you want to hurt yourself or someone else? Patient reports no desire to harm self or others. Onset of symptoms was July 18, 2023. 23:10 Method Of Arrival: Ambulatory hb 23:10 Acuity: BENJA 3 hb Triage Assessment: 23:32 General: Appears in no apparent distress. Behavior is calm, cooperative. Pain: Pain hb currently is 7 out of 10 on a pain scale. Neuro: Level of Consciousness is awake, alert, obeys commands, Oriented to person, place, time, situation. Cardiovascular: Reports chest pain, Patient's skin is warm and dry. Respiratory: Respiratory effort is even, unlabored, Respiratory pattern is regular, symmetrical. Historical: - Allergies: 23:30 Amoxicillin; hb 23:30 Latex; hb 23:30 PENICILLINS; hb 23:30 Sulfa (Sulfonamide Antibiotics); hb - PMHx: 23:30 neurocardiogenic syncope; hb - PSHx: 23:30 Ligation of fallopian tube; Total abdominal hysterectomy; hb - Immunization history:: Adult Immunizations up to date. - Social history:: Smoking status: unknown. Screenin:52 [facility] ED Fall Risk Assessment (Adult) History of falling in the last 3 months, bp including since admission No falls in past 3 months (0 pts). Abuse screen: Denies threats or abuse. Denies injuries from another. Nutritional screening: No deficits noted. Tuberculosis screening: No symptoms or risk factors identified. Assessment: 23:52 General: SEE TRIAGE NOTE. bp 02/27 01:33 Reassessment: Patient appears in no apparent distress at this time. Patient and/or jb4 family updated on plan of care and expected duration. Pain level reassessed. Patient is alert, oriented x 3, equal unlabored respirations, skin warm/dry/pink. 02:58 Reassessment: Patient appears in no apparent distress at this time. Patient and/or jb4 family updated on plan of care and expected duration. Pain level reassessed. Patient is alert, oriented x 3, equal unlabored respirations, skin warm/dry/pink. Vital Signs: 07/18 23:10 BP 117 / 73; Pulse 62; Resp 23; Temp 98.3(O); Pulse Ox 100% on R/A; Weight 52.62 kg; hb Height 5 ft. 5 in. ; Pain 7/10; 07/19 01:33 BP 105 / 68; Pulse 57; Resp 14; Pulse Ox 98% on R/A; jb4 07/18 23:10 Body Mass Index 19.30 (52.62 kg, 165.1 cm) hb 07/18 23:10 Pain Scale: Adult hb ED Course: 07/18 23:11 Patient arrived in ED. im 23:11 Shay Jimenez PA is PHCP. cp 23:11 Sumanth Matos MD is Attending Physician. cp 23:19 Darrell Cohen, DESTIN is Primary Nurse. bp 23:30 Triage completed. hb 23:32 Arm band placed on. hb 23:52 Patient has correct armband on for positive identification. Client placed on continuous bp cardiac and pulse oximetry monitoring. NIBP monitoring applied. 23:52 Inserted saline lock: 22 gauge in right antecubital area, using aseptic technique. bp Blood collected. 23:52 Patient maintains SpO2 saturation greater than 95% on room air. bp 23:59 XRAY Chest (1 view) In Process Unspecified. EDMS 07/19 00:51 US Abdomen Limited: gallbladder In Process Unspecified. EDMS 02: David Vargas MD is Referral Physician. cp 02:58 No provider procedures requiring assistance completed. IV discontinued, intact, jb4 bleeding controlled, No redness/swelling at site. Pressure dressing applied. Administered Medications: 00:25 Drug: Ativan IVP 1 mg IVP once Route: IVP; Site: right antecubital; bp 02:37 Drug: Potassium PO Effervescent Tablet 50 mEq PO once; dissolve in 4 ounces of water or jb4 juice Route: PO; Medication: 02:58 VIS not applicable for this client. jb4 Outcome: 02:27 Discharge ordered by . jana 02:58 Discharged to home ambulatory, with family, jbPawan 02:58 Condition: stable 02:58 Discharge instructions given to patient, Instructed on discharge instructions, follow up and referral plans. medication usage, Demonstrated understanding of instructions, follow-up care, medications, Prescriptions given X 3, 02:59 Patient left the ED. jb4 Signatures: Dispatcher [employer] EDMS Shay Jimenez PA PA cp Baxter, Heather, DESTIN RN Mauricio Belrte RN RN jb Darrell Cohen RN RN bp Corina Batista
[2023-07-19 03:28] VITALS: BP 105/68; TEMP 98.3; O2SAT 98
--- NOTE | 2023-07-19 13:48 | RAD REPORT ---
EXAM DESCRIPTION: RAD - Chest Single View - 07/18/2023 11:57 pm CLINICAL HISTORY: The patient is 43 years old and is Female; CHEST PAIN Bed Name: 11 TECHNIQUE: Frontal view of the chest. COMPARISON: 01/26/2022 chest radiographs FINDINGS: LUNGS: Slight leftward patient rotation. Allowing for this, no focal consolidation. PLEURAL SPACE: No appreciable pleural effusion or pneumothorax. MEDIASTINUM: Stable cardiomediastinal silhouette. BONES/JOINTS: Bilateral thoracic and partially visualized lumbar spine fixation rods. IMPRESSION: No acute findings in the chest. Electronically signed by: Bernardino Gomes MD 07/19/2023 12:13 AM FURNACE DOOR TENDER Due to temporary technical issues with the PACS/Fluency reporting system, reports are being signed by the in house radiologists without review as a courtesy to insure prompt reporting. The interpreting radiologist is fully responsible for the content of the report.
--- NOTE | 2023-07-19 13:49 | RAD REPORT ---
EXAM DESCRIPTION: US - Abdomen Exam Limited - 07/19/2023 12:49 am CLINICAL HISTORY: The patient is 43 years old and is Female; EPIGASTRIC PAIN Bed Name: 11 TECHNIQUE: Real-time ultrasound of the right upper quadrant with image documentation. COMPARISON: No relevant prior studies available. FINDINGS: LIVER: Hepatopetal portal venous flow. No focal hepatic parenchymal abnormality as visua lized. No intrahepatic bile duct dilation. GALLBLADDER: Nonshadowing stones versus dense sludge demonstrated within the gallbladder lumen. No pericholecystic free fluid. No wall thickening. COMMON BILE DUCT: Unremarkable as visualized. No stones. No dilation. Common bile duct measures 0.4 cm in diameter. IMPRESSION: Nonshadowing stones versus dense sludge demonstrated within the gallbladder lumen. No so nographic evidence of acute cholecystitis. If there is high clinical suspicion for acute cholecystitis, or to evaluate for chronic cholecystitis or biliary dyskinesia, further evaluation by HIDA scan could be performed. Electronically signed by: Bernardino Gomes MD 07/19/2023 01:14 AM TOOL DESIGN CHECKER Due to temporary technical issues with the PACS/Fluency reporting system, reports are being signed by the in house radiologists without review as a courtesy to insure prompt reporting. The interpreting radiologist is fully responsible for the content of the report.
--- NOTE | 2023-07-19 15:47 | EKG ---
Test Date: 2023-07-18 Test Time: 23:14:40 [place]: BP MEASUREMENT RESULTS: Intervals: Rate: 61 WV: 164 QRSD: 84 QT: 466 QTc: 469 [place]: P: 69 WV: 164 QRS: 90 T: 77 INTERPRETIVE STATEMENTS: Sinus rhythm with frequent premature ventricular complexes Rightward axis Borderline ECG Compared to ECG 05/02/2022 21:45:02 Ventricular premature complex(es) now present Sinus bradycardia no longer present Electronically Signed On 07-19-23 15:45:57 [employer] by Stalin Horner
== END ==
LOC: ER 23:04
DX: K80.80 Other cholelithiasis without obstruction (principal); E87.6 Hypokalemia; Z88.0 Allergy status to penicillin; Z88.1 Allergy status to other antibiotic agents; Z88.2 Allergy status to sulfonamides; Z91.040 Latex allergy status
CPT/HCPCS: 36415; 71045; 76705; 80048; 80076; 83690; 83735; 83880; 84484; 85025; 85610; 93005

== ENCOUNTER 2024-04-17 10:34 | Emergency (ER) | payer OTHER, SELFPAY ==
--- OUTSIDE RECORDS SUMMARY | 2024-04-17 10:37 | XMS REPORT | Continuity of Care Document ---
Author Name Unknown Address [address] [facility] thconnect Address [address] [facility] [place] [address] Care Team Providers Care Supervisor [employer] Name Role Phone HUGH DINA DAVID Primary Care Physician UnavailDina Moreno Attending Clinician Unavailable Mirian Govea Attending Clinician Unavailable Bishnu Webb Attending Clinician Unavailable AARON ABREU K.HBambi Attending Clinician UnavailVIVIAN Martines Attending Clinician Unav ailVIVIAN Gibbons Attending Clinician Unav ailerika Abreu MD, Sendil K.H. Attending Clinician [phone] Gonsalo BROWN, Aaron K.H. Attending Clinician [phone] [email or web address] Attending Clinician Unavaila jero Doctor Unassigned, Ramsey Attending Clinician U DEEPTI Martinez Attending Clinician Unavailable DEEPTI JONES Attending Clinician Unavailable Bishnu Webb MD Attending Clinician + [phone] HELLEN LOPEZ Attending Clinician Unavailable Ambrose Reyes Attending Clinician [phone] AMBROSE MACKENZIE Attending Clinician Unavailable BISHNU WEBB Attending Clinician Luis Angel driscoll [email or web address] Admitting Clinician AARON Armando Admitting Clinician Dominik nogueira Payers Payer Name Policy Type Policy Number Effective Date Expirati on Date Source [facility] [id number] 2022 00:00:00 [place] [address] [id number] 2022 00:00:00 [facility] FOR LIFE C1 [id number] [facility] FOR LIFE C1 [id number] C [facility] FOR [facility] C1 [id number] [facility] Problems Condition Name Condition Details Condition Category Status Onset Date Resolution Date Last Treatment Date Treating Clinician Comments Source Low back pain of over 3 months duration Low back pain of over 3 months duration Disease Active 2017-05 00:00: 00 [facility] Neck pain of over 3 months duration Neck pain of over 3 months duration Disease Active 2017-05 00:00: 00 [facility] [id number] Calculus of gallbladde r without cholecysti tis without obstructio n Problem [facility] [id number] Lumbago with sciatica, right side Problem [facility] [id number] Palpitatio ns Problem [facility] Anxiety Anxiety Problem [facility] Allergic rhinitis Allergic rhinitis Problem [facility] [id number] Encounter for gynecologi cody examinatio n (general) (routine) without abnormal findings Problem [facility] [id number] Other chronic pain Problem [facility] Depression Depression Problem Co mmon [facility] [id number] Night sweats Problem [facility] [id number] Neurologic cardiac syncope Problem [facility] [id number] History of ulcerative colitis Problem [facility] [id number] Lesion of lip Problem [facility] [id number] Dorsalgia, unspecifie d Problem [facility] [id number] Constipati on, unspecifie d constipati on type Problem [facility] Allergies, Adverse Reactions, Alerts Allergy Name Allergy Type Status Severity Reaction(s) Onset Date Inactive Date Treating Clinician Comments Source [facility] Active Rash 2019-05 00:00: 00 [facility] Penicill in Propensi ty to adverse reaction s Active Unknown - See comments 2017-05 00:00: 00 [facility] LATEX DRUG INGREDI Active Unknown-Cmnt 2017-05 00:00: 00 [facility] PENICILL IN DRUG INGREDI Active Unknown-Cmnt 2017-05 00:00: 00 [facility] SULFA (SULFONA MIDE ANTIBIOT ICS) Drug Class Active Unknown-Cmnt 2017-05 00:00: 00 [facility] Penicill ins Propensi ty to adverse reaction s Active Hives 01-17 00:00: 00 [facility] Sulfa (Sulfona mide Antibiot ics) Propensi ty to adverse reaction s Active Unknown - See comments 01-17 00:00: 00 [facility] Penicill ins Propensi ty to adverse reaction s Active Hives 01-17 00:00: 00 [facility] Sulfa (Sulfona mide Antibiot ics) Propensi ty to adverse reaction s Active Unknown - See comments 01-17 00:00: 00 [facility] PENICILL INS Drug Class Active Hives 01-17 00:00: 00 [facility] SULFA (SULFONA MIDE ANTIBIOT ICS) Drug Class Active Unknown-Cmnt 01-17 00:00: 00 [facility] Latex Latex Active itching [facility] Penicill in Penicill in Active bumps [facility] Social History Social Habit Start Date Stop Date Quantity Comments Source History of Tobacco Use Current Smoker [facility] Sex Assigned At [facility] Sexual orientation U [facility] Alcohol intake 2023-02-09 00:00:00 2023-02-09 00:00:00 Current non-drinker of alcohol (finding) [facility] Alcoholic beverage intake 2023-02-09 00:00:00 2023-02-09 00:00:00 Current non-drinker of alcohol (finding) [facility] Exposure to SARS-CoV-2 (event) 2022-09-12 00:00:00 2022-09-22 07:53:00 Not sure [facility] Tobacco use and exposure 2022-07-29 00:00:00 2022-07-29 00:00:00 Smokeless tobacco non-user [facility] History of Social function 2022-07-29 00:00:00 2022-07-29 00:00:00 [facility] Smoking Status Start Date Stop Date Source Unknown if ever smoked [facility] Current Smoker 2023-03-29 00:00:00 [facility] Never smoked tobacco [facility] Medications Ordered Medication Name Filled Medication Name Start Date Stop Date Current Medication? Ordering Clinician Indication Dosage Frequency Signature (SIG) Comments Components Source verapamiL 240 mg ER tablet 2023-05 00:00: 00 Yes [id number] 240mg Take 1 tablet by mouth every morning. Please schedule follow up appt. [facility] verapamiL 240 mg ER tablet -16 00:00: 00 04-02 00:00 :00 No [id number] 240mg Take 1 tablet by mouth every morning. Please schedule follow up appt. [facility] verapamiL 240 mg ER tablet 5-30 00:00: 00 02-05 00:00 :00 No TAKE 1 TABLET BY MOUTH IN THE MORNING [facility] verapamiL 240 mg ER tablet 2022-05- 16:34: 12 04-25 00:00 :00 No 240mg Take 1 tablet by mouth in the morning. [facility] verapamiL 240 mg ER tablet 2022-05- 00:00: 00 Yes TAKE 1 TABLET BY MOUTH IN THE MORNING FOR 30 DAYS [facility] CYCLOBENZAP RINE HCL (FLEXERIL ORAL) 18 10:01: 48 09-07 00:00 :00 No Take by mouth. [facility] GABAPENTIN, BULK, MISC 18 10:01: 48 09-07 00:00 :00 No [facility] BABY ASPIRIN ORAL 0 18 10:00: 08 Yes Take by mouth. [facility] BABY ASPIRIN ORAL 4 08:42: 14 Yes Take by mouth. [facility] omeprazole 40 mg capsule 0 3- 00:00: 00 Yes [id number] 40mg Take 1 capsule by mouth in the morning. [facility] omeprazole 40 mg capsule 07-30 00:00: 00 Yes [id number] 40mg Take 1 capsule by mouth in the morning. [facility] BABY ASPIRIN ORAL 0 07-29 15:19: 34 Yes Take by mouth. [facility] CYCLOBENZAP RINE HCL (FLEXERIL ORAL) 3- 08:13: 30 Yes Take by mouth. [facility] GABAPENTIN, BULK, MISC 3-09 08:13: 30 Yes [facility] BABY ASPIRIN ORAL 0 3 08:13: 02 Yes Take by mouth. [facility] sucralfate 1 gram tablet 1- 00:00: 00 Yes [id number] 1g Take 1 tablet by mouth 4 (four) times daily. [facility] BABY ASPIRIN ORAL 3 20:29: 42 Yes Take by mouth. [facility] BABY ASPIRIN ORAL 0 3 14:29: 42 Yes Take by mouth. [facility] ALPRAZolam 1 mg tablet 07-21 00:00: 00 09-07 00:00 :00 No [id number] 1mg Take 1 tablet by mouth 2 (two) times daily. [facility] verapamil SR 120 mg ER tablet 07-21 00:00: 00 09-07 00:00 :00 No [id number] 120mg Take 1 tablet by mouth 2 (two) times daily. [facility] DULoxetine 60 mg capsule 06-06 00:00: 00 Yes [id number] 60mg Take 1 capsule by mouth daily. [facility] ciprofloxac in HCl (CIPRO) tablet 500 mg 2019-05 01:30: 00 04-27 00:48 :00 No 500mg 500 mg, Oral, ONCE, 1 dose, 04/26/20 at 1930, CORINA
Re ason for Anti-Infec tive: Documented Infection< br>Documen jose angel Infection Site: Urine
D uration of Therapy: Other (see Comments) [facility] dexamethaso ne (DECADRON) injection 10 mg 2019-05 00:45: 00 04-27 00:45 :00 No 10mg 10 mg, Intramuscu lar, ONCE, 1 dose, 04/26/20 at 1845, CORINA [facility] famotidine (PEPCID) tablet 40 mg 2019-05 00:45: 00 04-26 23:51 :00 No 40mg 40 mg, Oral, ONCE, 1 dose, 04/26/20 at 1845, CORINA [facility] diphenhydrA MINE (BENADRYL) tablet 25 mg 2019-05 00:45: 00 04-26 23:51 :00 No 25mg 25 mg, Oral, ONCE, 1 dose, 04/26/20 at 1845, CORINA [facility] predniSONE 20 mg tablet 2019-05 00:00: 00 05-03 05:59 :00 No [id number] 40mg Take 2 tablets by mouth daily for 5 days. [facility] permethrin 5 % cream 2019-05 00:00: 00 09-07 00:00 :00 No [id number] Cream 5%: Apply to entire body; leave on for 8 to 14 hours before washing off with water [facility] famotidine (PEPCID) 20 mg tablet 2019-05 00:00: 00 05-07 05:59 :00 No [id number] 20mg Take 1 tablet by mouth 2 (two) times daily for 10 days. [facility] ciprofloxac in HCl 500 mg tablet 2019-05 00:00: 00 05-02 05:59 :00 No [id number] 500mg Take 1 tablet by mouth 2 (two) times daily for 5 days. [facility] NAPROXEN/ES OMEPRAZOLE MAG (VIMOVO ORAL) 01-17 18:06: 27 Yes Take by mouth. [facility] CYCLOBENZAP RINE HCL (FLEXERIL ORAL) 01-17 18:04: 02 Yes Take by mouth. [facility] GABAPENTIN, BULK, MISC 01-17 18:04: 02 Yes [facility] NAPROXEN/ES OMEPRAZOLE MAG (VIMOVO ORAL) 01-17 13:06: 27 Yes Take by mouth. [facility] CYCLOBENZAP RINE HCL (FLEXERIL ORAL) 01-17 13:04: 02 Yes Take by mouth. [facility] GABAPENTIN, BULK, MISC 01-17 13:04: 02 Yes [facility] HYDROcodone -acetaminop hen (NORCO 5) 5-325 mg tablet 01-17 00:00: 00 09-07 00:00 :00 No 1{tbl} Take 1 Tab by mouth every 4 (four) hours as needed for Pain. [facility] naproxen (NAPROSYN) 500 mg tablet 01-17 00:00: 00 09-07 00:00 :00 No 500mg Take 1 Tab by mouth 2 (two) times daily with meals. [facility] cyclobenzap rine (FLEXERIL) 10 mg tablet 01-17 00:00: 00 09-07 00:00 :00 No 10mg Take 1 Tab by mouth 3 (three) times daily. [facility] Xanax 1 MG Xanax 1 MG No 1{ table t} BID Xanax 1 MG DULoxetine HCl 60 MG DULoxetine HCl 60 MG No 1{capsu le} QD DULoxetine HCl 60 MG Aspirin 81 81 MG Aspirin 81 81 MG No 1{table t} QD Aspirin 81 81 MG Aspirin 81 81 MG Aspirin 81 [...] 1{capsu le} QD DULoxetine HCl 60 MG Immunizations Ordered Immunization Name Filled Immunization Name Date Status Comments Source TDAP 2014-09-20 00:00:00 Completed [facility] TDAP 2014-09-20 00:00:00 Completed [facility] TDAP 2014-09-20 00:00:00 Completed [facility] TDAP 2014-09-20 00:00:00 Completed [facility] TDAP 2014-09-20 00:00:00 Completed [facility] TDAP 2014-09-20 00:00:00 Completed [facility] TDAP 2014-09-20 00:00:00 Completed [facility] TDAP 2014-09-20 00:00:00 Completed [facility] TDAP 2014-09-20 00:00:00 Completed [facility] TDAP 2014-09-20 00:00:00 Completed [facility] TDAP 2014-09-20 00:00:00 Completed [facility] TDAP 2014-09-20 00:00:00 Completed [facility] TDAP Unknown Completed [facility] TDAP Unknown Completed [facility] TDAP Unknown Completed [facility] Vital Signs Vital Name Observation Time Observation Value Comments S ourfabian Systolic blood pressure 2024-04-02 14:55:00 104 mm[Hg] [facility] Diastolic blood pressure 2024-04-02 14:55:00 69 mm[Hg] [facility] Heart rate 2024-04-02 14:55:00 91 /[facility] 2024-04-02 14:55:00 36.78 Evelia [facility] Respiratory rate 2024-04-02 14:55:00 20 /min [facility] Body height 2024-04-02 14:55:00 165.1 cm [facility] Body weight 2024-04-02 14:55:00 51.71 kg [facility] BMI 2024-04-02 14:55:00 18.97 kg/m2 [facility] Oxygen saturation in Arterial blood by Pulse oximetry 2024-04-02 14:55:00 100 /min [facility] height 2023-02-15 08:20:00 64 [in_i] Commo n [facility] weight 2023-02-15 08:20:00 114.0 [lb_av] Co mmon [facility] temperature 2023-02-15 08:20:00 98.1 [degF] Com mon [facility] bmi 2023-02-15 08:20:00 19.57 kg/m2 Comm on [facility] oximetry 2023-02-15 08:20:00 100 % Commo n [facility] respiratory rate 2023-02-15 08:20:00 15 /min Common [facility] blood pressure systolic 2023-02-15 08:20:00 124 mm[Hg] [facility] blood pressure diastolic 2023-02-15 08:20:00 81 mm[Hg] [facility] Systolic blood pressure 2023-02-09 15:40:00 126 mm[Hg] [facility] Diastolic blood pressure 2023-02-09 15:40:00 85 mm[Hg] [facility] Heart rate 2023-02-09 15:40:00 83 /min [facility] Respiratory rate 2023-02-09 15:40:00 17 /min [facility] Body height 2023-02-09 15:40:00 165.1 cm [facility] Body weight 2023-02-09 15:40:00 51.211 kg [facility] BMI 2023-02-09 15:40:00 18.79 kg/m2 [facility] Oxygen saturation in Arterial blood by Pulse oximetry 2023-02-09 15:40:00 100 /min [facility] height 2023-01-13 08:00:00 64 [in_i] Commo n [facility] weight 2023-01-13 08:00:00 113.0 [lb_av] Co mmon [facility] temperature 2023-01-13 08:00:00 99.1 [degF] Com [facility] bmi 2023-01-13 08:00:00 19.39 kg/m2 Comm on [facility] oximetry 2023-01-13 08:00:00 100 % Commo n [facility] respiratory rate 2023-01-13 08:00:00 15 /min [facility] blood pressure systolic 2023-01-13 08:00:00 121 mm[Hg] [facility] blood pressure diastolic 2023-01-13 08:00:00 74 mm[Hg] [facility] height 2022-09-14 10:40:00 64 [in_i] Commo n [facility] weight 2022-09-14 10:40:00 110.4 [lb_av] Co mmon [facility] temperature 2022-09-14 10:40:00 98.0 [degF] Com mon [facility] bmi 2022-09-14 10:40:00 18.95 kg/m2 Comm on [facility] oximetry 2022-09-14 10:40:00 98 % Commo n [facility] respiratory rate 2022-09-14 10:40:00 16 /min Common [facility] blood pressure systolic 2022-09-14 10:40:00 106 mm[Hg] [facility] blood pressure diastolic 2022-09-14 10:40:00 69 mm[Hg] [facility] Systolic blood pressure 2022-09-07 14:43:00 111 mm[Hg] [facility] Diastolic blood pressure 2022-09-07 14:43:00 69 mm[Hg] [facility] Heart rate 2022-09-07 14:43:00 89 /min Unive [facility] Body height 2022-09-07 14:43:00 165.1 cm [facility] Body weight 2022-09-07 14:43:00 49.941 kg [facility] BMI 2022-09-07 14:43:00 18.32 kg/m2 [facility] Oxygen saturation in Arterial blood by Pulse oximetry 2022-09-07 14:43:00 100 /min [facility] Systolic blood pressure 2022-09-02 13:43:00 126 mm[Hg] [facility] Diastolic blood pressure 2022-09-02 13:43:00 78 mm[Hg] [facility] Heart rate 2022-09-02 13:43:00 81 /[facility] Body temperature 2022-09-02 13:43:00 36.89 Evelia [facility] Respiratory rate 2022-09-02 13:43:00 16 /min [facility] Body height 2022-09-02 13:43:00 165.1 cm [facility] Body weight 2022-09-02 13:43:00 49.805 kg [facility] BMI 2022-09-02 13:43:00 18.27 kg/m2 [facility] Oxygen saturation in Arterial blood by Pulse oximetry 2022-09-02 13:43:00 100 /min [facility] Systolic blood pressure 2022-07-29 20:23:00 121 mm[Hg] [facility] Diastolic blood pressure 2022-07-29 20:23:00 81 mm[Hg] [facility] Heart rate 2022-07-29 20:23:00 68 /min Un[facility] Respiratory rate 2022-07-29 20:23:00 19 /min [facility] Body height 2022-07-29 20:23:00 165.1 cm [facility] Body weight 2022-07-29 20:23:00 49.896 kg [facility] BMI 2022-07-29 20:23:00 18.30 kg/m2 [facility] Oxygen saturation in Arterial blood by Pulse oximetry 2022-07-29 20:23:00 100 /min [facility] Systolic blood pressure 2022-07-29 14:11:00 116 mm[Hg] [facility] Diastolic blood pressure 2022-07-29 14:11:00 73 mm[Hg] [facility] Heart rate 2022-07-29 14:11:00 84 /min Un[facility] Body temperature 2022-07-29 14:11:00 36.72 Evelia [facility] Respiratory rate 2022-07-29 14:11:00 16 /min [facility] Body height 2022-07-29 14:11:00 165.1 cm [facility] Body weight 2022-07-29 14:11:00 49.986 kg [facility] BMI 2022-07-29 14:11:00 18.34 kg/m2 [facility] Oxygen saturation in Arterial blood by Pulse oximetry 2022-07-29 14:11:00 100 /min [facility] height 2022-06-22 09:00:00 64 [in_i] Commo n [facility] weight 2022-06-22 09:00:00 108 [lb_av] Comm on [facility] temperature 2022-06-22 09:00:00 97.4 [degF] Com mon [facility] bmi 2022-06-22 09:00:00 18.54 kg/m2 Comm on [facility] oximetry 2022-06-22 09:00:00 97 % Commo n [facility] respiratory rate 2022-06-22 09:00:00 16 /min [facility] blood pressure systolic 2022-06-22 09:00:00 124 mm[Hg] [facility] blood pressure diastolic 2022-06-22 09:00:00 75 mm[Hg] [facility] height 2022-05-11 16:00:00 64 [in_i] Commo n [facility] weight 2022-05-11 16:00:00 110.8 [lb_av] Co on [facility] temperature 2022-05-11 16:00:00 97.4 [degF] Com [facility] bmi 2022-05-11 16:00:00 19.02 kg/m2 Comm on [facility] oximetry 2022-05-11 16:00:00 97 % Commo n [facility] respiratory rate 2022-05-11 16:00:00 16 /min [facility] blood pressure systolic 2022-05-11 16:00:00 124 mm[Hg] [facility] blood pressure diastolic 2022-05-11 16:00:00 84 mm[Hg] [facility] weight 2021-12-09 08:20:00 118.4 [lb_av] Co on [facility] temperature 2021-12-09 08:20:00 97.3 [degF] Com [facility] bmi 2021-12-09 08:20:00 20.32 kg/m2 Comm on [facility] oximetry 2021-12-09 08:20:00 100 % Commo n [facility] respiratory rate 2021-12-09 08:20:00 16 /min Common [facility] blood pressure systolic 2021-12-09 08:20:00 107 mm[Hg] [facility] blood pressure diastolic 2021-12-09 08:20:00 67 mm[Hg] [facility] height 2021-12-09 08:20:00 64 [in_i] Commo n [facility] height 2021-09-08 11:20:00 64 [in_i] Commo n [facility] weight 2021-09-08 11:20:00 118 [lb_av] Comm on [facility] temperature 2021-09-08 11:20:00 97.2 [degF] Com [facility] bmi 2021-09-08 11:20:00 20.25 kg/m2 Comm on [facility] oximetry 2021-09-08 11:20:00 99 % Commo n [facility] respiratory rate 2021-09-08 11:20:00 17 /min [facility] blood pressure systolic 2021-09-08 11:20:00 112 mm[Hg] [facility] blood pressure diastolic 2021-09-08 11:20:00 80 mm[Hg] [facility] height 2021-03-31 09:00:00 64 [in_i] Commo n [facility] weight 2021-03-31 09:00:00 111 [lb_av] Comm on [facility] temperature 2021-03-31 09:00:00 98.8 [degF] Com [facility] bmi 2021-03-31 09:00:00 19.05 kg/m2 Comm on [facility] oximetry 2021-03-31 09:00:00 100 % Commo n [facility] respiratory rate 2021-03-31 09:00:00 18 /min [facility] blood pressure systolic 2021-03-31 09:00:00 116 mm[Hg] [facility] blood pressure diastolic 2021-03-31 09:00:00 64 mm[Hg] [facility] Body weight 2020-04-26 23:36:00 45.36 kg [facility] Systolic blood pressure 2020-04-26 23:34:00 110 mm[Hg] [facility] Diastolic blood pressure 2020-04-26 23:34:00 78 mm[Hg] [facility] Heart rate 2020-04-26 23:34:00 89 /min [facility] Body temperature 2020-04-26 23:34:00 37 Evelia [facility] Respiratory rate 2020-04-26 23:34:00 18 /min [facility] Oxygen saturation in Arterial blood by Pulse oximetry 2020-04-26 23:34:00 100 /min [facility] Procedures Procedure Date / Time Performed Performing Clinician Source INSURANCE CORRESPONDENCE 2022-09-30 05:01:00 Doc tor Unassigned, Ramsey [facility] EXTERNAL PROVIDER - ADC CARDIOLOGY 2022-08-26 05:01:00 Doctor Unassigned, Ramsey [facility] HB ECG ROUTINE & RHYTHM STRIP 2022-07-29 20:28:03 Aaron Abreu [facility] REFERRAL- REQUEST/RESPONSE 2022-07-27 06:01:00 Doctor Unassigned, Ramsey [facility] POCT TEST 2020-04-26 23:50:00 Ambrose Mackenzie [facility] URINALYSIS 2020-04-26 23:49:00 Ambrose Mackenzie [facility] NOTICE OF PRIVACY PRACTICES 2020-04-26 23:24:44 Doctor Unassigned, Ramsey [facility] CONSENT/REFUSAL FOR DIAGNOSIS AND TREATMENT 2020-04-26 23:24:28 Doctor Unassigned, Ramsey [facility] Encounters Start Date/Time End Date/Time Encounter Type Admission Type Attending Clinicians Care Facility Care Department Encounter ID Source 2023-02-14 15:04:00 Outpatient Dina Marino [facility] [id number] [facility] 2022-06-18 08:45:00 Outpatient Dina Marino [facility] [id number] [facility] 2022-05-07 11:31:00 Outpatient Dina Marino [facility] [id number] [facility] 2022-02-15 08:14:00 Outpatient Dina Marino [facility] [id number] [facility] 2021-12-07 09:30:00 Outpatient Dina Marino [facility] [id number] [facility] 2021-06-17 14:16:31 Outpatient Dina Marino [facility] [id number] [facility] 2021-06-17 14:10:32 Outpatient Dina Marino STLMLC STLMLC [id number] [facility] 2021-06-17 14:10:07 Outpatient STLMLC STLMLC [id number] [facility] 2021-06-17 14:07:59 Outpatient Mirian Govea STLMLC STLMLC [id number] [facility] 2021-06-17 14:03:32 Outpatient STLMLC STLMLC [id number] [facility] 2021-06-17 14:02:47 Outpatient STLMLC STLMLC [id number] [facility] 2021-06-17 14:02:10 Outpatient STLMLC STLMLC [id number] [facility] 2021-06-17 13:50:52 Outpatient Bishnu Webb STLMLC STLMLC [id number] [facility] 2024-04-02 09:00:00 2024-04-02 09:17:17 Outpatient AARON REED [facility] [id number] [facility] 2024-04-02 09:00:00 2024-04-02 09:17:17 Office Visit Aaron Abreu [facility] 1.2.840.114 350.1.13.10 4.2.7.2.686 [id number] [facility] 2024-02-29 13:53:23 2024-02-29 13:53:23 Outpatient [facility] [id number] Braulio Blancas 2024-02-06 00:00:00 2024-02-06 11:40:47 Telephone Aaron Abreu [facility] 1.2.840.114 350.1.13.10 4.2.7.2.686 [id number] [facility] 2023-08-10 15:30:00 2023-08-10 15:30:00 Outpatient AARON REED [facility] [id number] [facility] 2023-04-25 00:00:00 2023-04-25 00:00:00 Refill Aaron Abreu [facility] 1.2.840.114 350.1.13.10 4.2.7.2.686 [id number] [facility] 2023-03-22 00:00:00 2023-03-22 00:00:00 Outpatient GC_GCBZW_Ka diyala_S [facility] [id number] [facility] 2023-03-03 15:40:00 2023-03-03 15:40:00 Outpatient FRANCISCO GONZALEZ CHOCKALINGA M [facility] [id number] [facility] 2023-03-03 14:20:00 2023-03-03 14:20:00 Outpatient FRANCISCO GONZALEZ [facility]A [facility] [id number] [facility] 2023-02-15 00:00:00 2023-02-15 00:00:00 OFFICE VISIT ESTAB PT LEVEL [id number] [facility] 2023-02-09 10:30:00 2023-02-09 11:14:42 Outpatient R AARON ABREU [facility] [id number] [facility] 2023-02-09 10:30:00 2023-02-09 11:14:42 Office Visit Aaron Abreu [facility] 1.2.840.114 350.1.13.10 4.2.7.2.686 [id number] [facility] 2023-01-13 00:00:00 2023-01-13 00:00:00 OFFICE VISIT ESTAB PT LEVEL [id number] [facility] 2022-10-28 00:00:00 2022-10-28 00:00:00 Telephone Aaron Abreu [facility] 1.2.840.114 350.1.13.10 4.2.7.2.686 [id number] [facility] 2022-09-30 00:00:00 2022-09-30 00:00:00 Orders Only Doctor Unassigned, [place] [facility] 1.2.840.114 350.1.13.10 4.2.7.2.686 [id number] [facility] 2022-09-22 07:53:48 2022-09-22 23:59:00 Outpatient R AARON ABREU [facility] [id number] [facility] 2022-09-14 00:00:00 2022-09-14 00:00:00 PREV VISIT EST AGE 40-64 [id number] [facility] 2022-09-08 00:00:00 2022-09-08 00:00:00 Telephone Abreu Aaron BrockConstanceBambi [facility] 1.2.840.114 350.1.13.10 4.2.7.2.686 [id number] [facility] 2022-09-07 08:39:05 2022-09-07 23:59:00 [facility] [id number] 2022-09-07 10:00:00 2022-09-07 10:05:08 [facility] 12.840.114 350.1.13.10 4.2.7.2.686 [id number] [facility] 2022-09-02 08:45:00 2022-09-02 09:00:46 [facility] [id number] [facility] 2022-09-02 08:45:00 2022-09-02 09:00:46 Office Visit [facility] 1.2.840.114 350.1.13.10 4.2.7.2.686 [id number] [facility] 2022-08-30 13:00:00 2022-08-30 13:00:00 Outpatient R DEEPTI JONES [facility] [id number] [facility] 2022-08-26 00:00:00 2022-08-26 00:00:00 Orders Only Doctor Unassigned, Ramsey [facility] 1.2.840.114 350.1.13.10 4.2.7.2.686 [id number] [facility] 2022-08-02 00:00:00 2022-08-02 00:00:00 (TEL) [facility] [id number] [facility] 2022-07-29 14:00:00 2022-07-29 15:27:14 Office Visit Aaron Abreu [facility] 1.2.840.114 350.1.13.10 4.2.7.2.686 [id number] [facility] 2022-07-29 08:00:00 2022-07-29 08:42:20 [facility] [id number] [facility] 2022-07-29 08:00:00 2022-07-29 08:42:20 Office Visit [facility] 1.2.840.114 350.1.13.10 4.2.7.2.686 [id number] [facility] 2022-07-27 00:00:00 2022-07-27 00:00:00 Orders Only Doctor Unassigned, Ramsey [facility] 1.2.840.114 350.1.13.10 4.2.7.2.686 [id number] [facility] 2022-07-22 00:00:00 2022-07-22 00:00:00 (TEL) STLMLC STLMLC [id number] [facility] 2022-07-19 00:00:00 2022-07-19 00:00:00 (TEL) STLMLC STLMLC [id number] [facility] 2022-07-02 00:00:00 2022-07-02 00:00:00 (TEL) STLMLC STLMLC [id number] [facility] 2022-06-22 00:00:00 2022-06-22 00:00:00 PREV VISIT EST AGE 40-[id number] [facility] 2022-05-11 00:00:00 2022-05-11 00:00:00 OFFICE VISIT ESTAB PT LEVEL [id number] [facility] 2021-12-09 00:00:00 2021-12-09 00:00:00 OFFICE VISIT ESTAB PT LEVEL [id number] [facility] 2021-09-08 00:00:00 2021-09-08 00:00:00 OFFICE VISIT ESTAB PT LEVEL [id number] [facility] 2021-08-04 00:00:00 2021-08-04 00:00:00 (TEL) STLMLC STLMLC [id number] [facility] 2021-07-03 00:00:00 2021-07-03 [facility]:00:[facility] .2.840.114 350.1.13.10 4.2.7.2.686 [id number] [facility] 2021-07-03 00:00:00 2021-07-03 00:00:00 (TEL) STLMLC STLMLC [id number] [facility] 2021-04-15 00:00:00 2021-04-15 00:00:00 (TEL) STLMLC STLMLC [id number] [facility] 2021-04-09 00:00:00 2021-04-09 00:00:00 (TEL) STLMLC STLMLC [id number] [facility] 2021-03-31 00:00:00 2021-03-31 00:00:00 OFFICE VISIT NEW PT LEVEL [id number] [facility] 2021-01-21 00:00:00 2021-01-21 00:00:00 [facility] .2.840.114 350.1.13.10 4.2.7.2.686 [id number] [facility] 2021-01-16 14:00:00 2021-01-16 14:00:00 Outpatient R HELLEN LOPEZ [facility] [id number] [facility] 2020-04-26 17:37:00 2020-04-26 19:10:00 Emergency Ambrose Mackenzie [facility] 1.2.840.114 350.1.13.10 4.2.7.2.686 [id number] [facility] 2020-04-26 17:24:00 2020-04-26 17:24:00 Emergency X AMBROSE MACKENZIE [facility] ERT [id number] [facility] 2019-12-20 08:00:00 2019-12-20 08:00:00 Outpatient BISHNU PICHARDO [facility] [id number] [facility] Results Test Description Test Time Test Comments Results Result Co mments [id number]:50[facility]00* Test Item Value Reference Range Interpretation Comme nts POCT PREG (test code = 1605) negative On board controls acceptable with C Line (test code = 3574) present POCT PREG LOT # (test code = 3575) [id number] POCT PREG TEST DATE ( test code = 3576) Lab Interpretation (test cod e = 63939-6) Normal [facility] Notes Date/Time Note Provider Source 2024-02-06 11:38:16 Spoke with pt to notify her that she needs to make 1 yr f/u. Pt states she is waiting to get more insurance. Pt notified that she can receive 1 mth with 1 refill and that appt would need to be made prior to any other refill. Pt verbalized understanding. [facility] 2024-02-06 10:52:26 Claudine Herron is a 43 year old female Pt calling to request refill for verapamiL 240 mg ER tablet. Pt states the pharmacy hasn't received the request. Please advise. Pt is out of meds. Pt did get a temporary supply from pharmacy but is also out of those. [facility] [address] [place] [id number] [facility]
[2024-04-17 11:20] LABS: Absolute Eosinophils 0.1 K/uL (0-0.5); Absolute Lymphocytes (CBC) 1.3 K/uL (0.7-4.9); Absolute Monocytes 0.3 K/uL (0.1-1.3); Absolute Neutrophil 4.5 K/uL (1.8-8.0); Basophils % 0.7 % (0-1.3); Eosinophils % 1.2 % (0-4.4); Hematocrit 39.4 % (36.0-45.0); Hemoglobin 13.1 g/dL (12.0-15.0); Lymphocytes % 21.5 % (15.3-44.8); MCH 31.3 pg (27.0-35.0); MCHC 33.3 g/dL (32.0-36.0); MPV 7.5 fL (7.6-11.3); Monocytes % 4.5 % (3.3-12.3); Neutrophils % 72.1 % (41.7-73.7); Platelets 231 thou/uL (152-406); Red Cell Distribution Width 12.2 % (12.1-15.2)
[2024-04-17 11:41] LABS: BUN Blood Urea Nitrogen 10 mg/dL (7-18); Bicarbonate 25 mEq/L (21-32); Glomerular Filtration Rate 105 ml/min (=/>90); Glucose Level 108 mg/dL (74-106); NT PRO-BNP 40 pg/mL (<125); Sodium Level 136 mEq/L (136-145)
[2024-04-17 11:42] LABS: Troponin High Sensitivity < 3.0 pg/mL (<58.9)
--- NOTE | 2024-04-17 11:54 | RAD REPORT ---
EXAMINATION: ONE VIEW CHEST XR CLINICAL INDICATION: syncope TECHNIQUE: Frontal chest projection is submitted. Examination is limited by patient positioning and t echnique. COMPARISON: 07/18/2023 FINDINGS: The lungs are well inflated and clear. The heart is moderately enlarged in size. No displaced fractur es identified. Extensive spinal hardware noted. IMPRESSION: No acute intrathoracic abnormalities.
--- NOTE | 2024-04-17 12:22 | ER ---
Nurse's Notes [facility] Name: Claudine Herron Age: 43 yrs Sex: Female : 1980 Arrival Date: 04/17/2024 Time: 10:34 Bed 15 Private MD: Diagnosis: Syncope Presentation: 04/17 10:46 Chief complaint: EMS states: [place] , began having chest pain ph then had a syncopal episode, did not fall, was caught by SO,awake when EMS arrived, systolic BP 94, HR 56, BGL 137, pt states that she has not eaten today, has had these episodes in the past. Coronavirus screen: Vaccine status: Patient reports receiving the 2nd dose of the covid vaccine. Ebola Screen: No symptoms or risks identified at this time. Initial Sepsis Screen: Does the patient meet any 2 criteria? No. Patient's initial sepsis screen is negative. Does the patient have a suspected source of infection? No. Patient's initial sepsis screen is negative. Risk Assessment: Do you want to hurt yourself or someone else? Patient reports no desire to harm self or others. Onset of symptoms was April 17, 2024. 10:46 Method Of Arrival: EMS: [facility] ph 10:46 Acuity: BENJA 3 ph Triage Assessment: 10:51 General: Appears in no apparent distress. comfortable, well groomed, Behavior is calm, ph cooperative, appropriate for age. Pain: Denies pain. Neuro: Level of Consciousness is awake, alert, obeys commands, Oriented to person, place, time, situation. Cardiovascular: Capillary refill < 3 seconds in bilateral fingers Patient's skin is warm and dry. Respiratory: Airway is patent Respiratory effort is even, unlabored, Respiratory pattern is regular, symmetrical. GI: No signs and/or symptoms were reported involving the gastrointestinal system. Derm: Skin is pink, warm \T\ dry. Musculoskeletal: Circulation, motion, and sensation intact. Range of motion: intact in all extremities. Historical: - Allergies: 10:50 Amoxicillin; ph 10:50 Latex; ph 10:50 PENICILLINS; ph 10:50 Sulfa (Sulfonamide Antibiotics); ph - PMHx: 10:50 neurocardiogenic syncope; ph - PSHx: 10:50 Ligation of fallopian tube; Total abdominal hysterectomy; ph - Immunization history:: Adult Immunizations up to date. - Infectious Disease History:: Denies. - Social history:: Smoking status: Reported history of juuling and/or vaping. - Family history:: not pertinent. - Hospitalizations: : No recent hospitalization is reported. Screenin:52 [facility] ED Fall Risk Assessment (Adult) History of falling in the last 3 months, ph including since admission No falls in past 3 months (0 pts) Confusion or Disorientation No (0 pts) Intoxicated or Sedated No (0 pts) Impaired Gait No (0 pts) Mobility Assist Device Used No (0 pt) Altered Elimination No (0 pt) Score/Fall Risk Level 0 - 2 = Low Risk Oriented to surroundings, Maintained a safe environment, Hourly rounding (assess needs \T\ fall precautionary measures) done, Used ambulatory aids as needed (educated on \T\ assisted with). Abuse screen: Denies threats or abuse. Denies injuries from another. Nutritional screening: No deficits noted. Tuberculosis screening: No symptoms or risk factors identified. Assessment: 11:00 General: SEE TRIAGE ASSESSMENT. ph 12:00 Reassessment: Patient appears in no apparent distress at this time. Patient and/or ph family updated on plan of care and expected duration. Pain level reassessed. Patient is alert, oriented x 3, equal unlabored respirations, skin warm/dry/pink. Vital Signs: 10:46 BP 100 / 66; Pulse 56; Resp 18; Temp 97.4; Pulse Ox 100% ; Weight 51.71 kg; Height 5 ph ft. 5 in. ; 12:04 BP 107 / 70; Pulse 58; Resp 18; Pulse Ox 99% on R/A; ph 10:46 Body Mass Index 18.97 (51.71 kg, 165.1 cm) ph ED Course: 10:45 Patient arrived in ED. bd 10:45 Shay Renae MD is Attending Physician. rn 10:46 Nieves Patterson RN is Primary Nurse. ph 10:49 Triage completed. ph 10:50 Arm band placed on Patient placed in an exam room, on a stretcher, on retail greeter, ph on pulse oximetry. 10:52 Patient has correct armband on for positive identification. Bed in low position. Call ph light in reach. Side rails up X 1. reinforcement maker on. Pulse ox on. NIBP on. Door closed. Noise minimized. Warm blanket given. 11:30 Maintain EMS IV. Dressing intact. Good blood return noted. Site clean \T\ dry. Gauge \T\ ph site: 18 LAC. Flushed with 10 mL NS. 11:42 XRAY Chest (1 view) In Process Unspecified. EDMS 12:40 No provider procedures requiring assistance completed. IV discontinued, intact, ph bleeding controlled, No redness/swelling at site. Pressure dressing applied. Administered Medications: 11:20 Drug: NS 0.9% IV 1000 ml IV at 1000 ml once; to be given as a bolus over 60 minutes ph Route: IV; Rate: 1000 ml; Site: left antecubital; 12:20 Follow up: Response: No adverse reaction; IV Status: Completed infusion; IV Intake: ph 1000ml Medication: 10:52 VIS not applicable for this client. ph Intake: 12:20 IV: 1000ml; Total: 1000ml. ph Outcome: 12:22 Discharge ordered by . rn 12:42 Patient left the ED. iw 12:42 Discharged to home ambulatory, with significant other, ph 12:42 Condition: good 12:42 Discharge instructions given to patient, Instructed on discharge instructions, follow up and referral plans. Demonstrated understanding of instructions, follow-up care, Signatures: Dispatcher [employer] EDMS Jerri Joseph Irene, RN RN iw Shay Renae MD MD rn Hall, Patricia, RN RN ph
--- NOTE | 2024-04-17 12:22 | EDPHYS ---
Physician Documentation [facility] Name: Claudine Herron Age: 43 yrs Sex: Female : 1980 Arrival Date: 04/17/2024 Time: 10:34 Bed 15 Private MD: ED Physician Shay Renae HPI: 04/17 11:13 This 43 yrs old Female presents to ER via EMS with complaints of syncope. rn 11:13 The patient has experienced syncope. Onset: The symptoms/episode began/occurred just rn prior to arrival. Duration: This was a single episode. Associated injury: The patient did not suffer any apparent associated injury. Current symptoms: Currently, the patient is not experiencing any symptoms. The patient has experienced similar episodes in the past. The patient has not recently seen a physician. Patient [place] , in the middle of ceremony patient started to feel lightheaded, tunnel vision and then had a single syncopal episode. No seizure activity. Was caught and laid down on ground and woke up pretty quickly. This has happened to her before and she has been diagnosed with neurocardiogenic syncope. Also reports she did not eat or drink anything today. EMS reported elevated blood glucose. Patient denies history of diabetes. No new medication or cessation of medication.. Historical: - Allergies: 10:50 Amoxicillin; ph 10:50 Latex; ph 10:50 PENICILLINS; ph 10:50 Sulfa (Sulfonamide Antibiotics); ph - PMHx: 10:50 neurocardiogenic syncope; ph - PSHx: 10:50 Ligation of fallopian tube; Total abdominal hysterectomy; ph - Immunization history:: Adult Immunizations up to date. - Infectious Disease History:: Denies. - Social history:: Smoking status: Reported history of juuling and/or vaping. - Family history:: not pertinent. - Hospitalizations: : No recent hospitalization is reported. ROS: 11:13 Constitutional: Negative for fever, chills, and weight loss, ENT: Negative for injury, rn pain, and discharge, Neck: Negative for injury, pain, and swelling, Cardiovascular: Negative for chest pain, palpitations, and edema, Respiratory: Negative for shortness of breath, cough, wheezing, and pleuritic chest pain, Abdomen/GI: Negative for abdominal pain, nausea, vomiting, diarrhea, and constipation, Back: Negative for injury and pain, MS/Extremity: Negative for injury and deformity, Skin: Negative for injury, rash, and discoloration, Neuro: Negative for headache, weakness, numbness, tingling, and seizure, Exam: 11:13 Constitutional: This is a well developed, well nourished patient who is awake, alert, rn and in no acute distress. Head/Face: Normocephalic, atraumatic. Eyes: Pupils equal round and reactive to light, extra-ocular motions intact. Lids and lashes normal. ENT: Dry mucous membranes Cardiovascular: Regular rate and rhythm. No pulse deficits. Respiratory: No increased work of breathing, no retractions or nasal flaring. Abdomen/GI: Soft, non-tender MS/ Extremity: Pulses equal, no cyanosis. Neurovascular intact. Full, normal range of motion. Equal circumference. Neuro: Awake and alert, GCS 15, oriented to person, place, time, and situation. Cranial nerves II-XII grossly intact. Motor strength 5/5 in all extremities. Sensory grossly intact. Cerebellar exam normal. 14:31 ECG was reviewed by the Attending Physician. rn Vital Signs: 10:46 BP 100 / 66; Pulse 56; Resp 18; Temp 97.4; Pulse Ox 100% ; Weight 51.71 kg; Height 5 ph ft. 5 in. ; 12:04 BP 107 / 70; Pulse 58; Resp 18; Pulse Ox 99% on R/A; ph 10:46 Body Mass Index 18.97 (51.71 kg, 165.1 cm) ph MDM: 10:45 Medical Screening Exam initiated rn 12:20 Differential Diagnosis: cardiac arrhythmia, emotional response, idiopathic syncope, rn vasovagal episode. Data reviewed: vital signs, nurses notes, lab test result(s), EKG, radiologic studies, plain films, and as a result, I will discharge patient. Counseling: I had a detailed discussion with the patient and/or guardian regarding the historical points, exam findings, and any diagnostic results supporting the discharge/admit diagnosis, lab results, radiology results, the need for outpatient follow up, to return to the emergency department if symptoms worsen or persist or if there are any questions or concerns that arise at home. Response to treatment: the patient's symptoms have resolved after treatment, the patient's condition has returned to base line, the patient is now symptom free, patient is well hydrated. and as a result, I will discharge patient. Special discussion: I discussed with the patient/guardian in detail that at this point there is no indication for admission to the hospital. It is understood, however, that if the symptoms persist or worsen the patient needs to return immediately for re-evaluation. 04/17 10:57 Order name: Basic Metabolic Panel; Complete Time: 11:50 rn 04/17 10:57 Order name: CBC with Diff; Complete Time: : rn 04/17 10:57 Order name: NT PRO-BNP; Complete Time: 11: rn 04/17 10:57 Order name: Troponin HS; Complete Time: 11: rn 04/17 10:57 Order name: XRAY Chest (1 view); Complete Time: 11: rn 04/17 10:57 Order name: Cardiac monitoring; Complete Time: 11: rn 04/17 10:57 Order name: EKG - Nurse/Tech; Complete Time: 11: 04/17 10:57 Order name: IV Saline Lock; Complete Time: 11: 04/17 10:57 Order name: Labs collected and sent; Complete Time: 11:44 rn 04/17 10:57 Order name: O2 Per Protocol; Complete Time: 11: 04/17 10:57 Order name: O2 Sat Monitoring; Complete Time: : 04/17 10:57 Order name: Glucose Level; Complete Time: 11:44 rn EC:31 Rate is 53 beats/min. Rhythm is regular. QRS [place] is Normal. ID interval is prolonged. rn QRS interval is normal. QT interval is normal. No Q waves. T waves are Normal. No ST changes noted. Clinical impression: Sinus bradycardia. Interpreted by me. Reviewed by me. Administered Medications: 11:20 Drug: NS 0.9% IV 1000 ml IV at 1000 ml once; to be given as a bolus over 60 minutes ph Route: IV; Rate: 1000 ml; Site: left antecubital; 12:20 Follow up: Response: No adverse reaction; IV Status: Completed infusion; IV Intake: ph 1000ml Disposition Summary: 04/17/24 12:22 Discharge Ordered Notes: Location: Home rn Problem: new rn Symptoms: have improved rn Condition: Stable rn Diagnosis - Syncope rn Followup: rn - With: Private Physician - When: As needed - Reason: Recheck today's complaints, Re-evaluation by your physician Discharge Instructions: - Discharge Summary Sheet rn - Dehydration, Adult rn - Syncope rn Forms: - Medication Reconciliation Form rn - Antibiotic broadcast journalist - Prescription Opioid Use rn - Patient Portal Instructions rn - Leadership Thank You Letter rn Signatures: Dispatcher [employer] Shay Nichols MD MD rn Hall, Patricia, RN RN
[2024-04-17 15:51] VITALS: TEMP 97.4
[2024-04-17 15:52] VITALS: BP 107/70; O2SAT 99
--- NOTE | 2024-04-18 11:35 | EKG ---
Test Date: 2024-04-17 Test Time: 11:00:34 Electron Gun Assembler: ESTHELA MEASUREMENT RESULTS: Intervals: Rate: 53 VT: 220 QRSD: 80 QT: 470 QTc: 441 [place]: P: 50 VT: 220 QRS: 92 T: 73 INTERPRETIVE STATEMENTS: Sinus bradycardia with 1st degree AV block Rightward axis Borderline ECG Compared to ECG 07/18/2023 23:14:40 First degree AV block now present Sinus rhythm no longer present Ventricular premature complex(es) no longer present Electronically Signed On 04-18-24 11:32:07 WEAPONS ENGINEER by [place]
== END 2024-04-17 12:42 | disposition home or self-care (01) ==
LOC: ER 10:34
DX: R55 Syncope and collapse (principal)
CPT/HCPCS: 36415; 71045; 80048; 83880; 84484; 85025; 93005; 96360; 99284